=== PATIENT | female | born 1945 | race Caucasian/White ===

== ENCOUNTER 2017-09-24 21:59 | Inpatient (IN) ==
[2017-09-24] MEDS ORDERED: 0.9 % SODIUM CHLORIDE 1,000 ML IV ONE (22:05)
[2017-09-24] MEDS ORDERED: PROMETHAZINE 25 MG/ML VIAL IV ONE (22:15)
[2017-09-24] MEDS ORDERED: ACETAMINOPHEN 325 MG TABLET PO ONE (22:15)
--- NOTE | 2017-09-24 22:34 | Emergency Department Note ---
Fever HPI - General Chief Complaint: Fever Stated Complaint: fever Time Seen by Provider: 09/24/17 22:31 Source: patient Mode of arrival: ambulatory Limitations: no limitations - History of Present Illness HPI Narrative: Patient has been having fever and chills since today according to her son. She has been treated for a UTI by Dr. Gould does not know the name of the antibiotic. Her son she has been eating and drinking well been acting normal last 3-4 days as he has been seeing her every day denies any chest pain there is been no shortness of breath no abdominal pain is been no nausea vomiting no diarrhea no hematemesis no melena denies urgency frequency or dysuria denies any cough no sputum production or throat it appears she was on Macrobid for UTI she is allergic to cephalosporins, penicillin,fluoroquinones, - Related Data Home Medications Medication Instructions Recorded Confirmed Atorvastatin [Lipitor] 20 mg PO HS 06/28/15 08/12/17 HYDROcodone/APAP 10/325MG [[place] 1 tab PO Q4-6HP PRN 06/28/15 08/12/17 10-325Mg] Aspirin [Rishi Chewable Aspirin] 81 mg PO DAILY 07/09/15 08/12/17 carvedilol 12.5 mg tablet 12.5 mg PO BID 07/17/15 08/12/17 fluoxetine 20 mg capsule 20 mg PO QDAY 07/17/15 08/12/17 multivitamin tablet 1 tab-cap PO QDAY 07/17/15 08/12/17 nitroglycerin 0.4 mg sublingual 0.4 mg SUBLINGUAL Q5-15MIN PRN 07/17/15 08/12/17 tablet ondansetron HCl 4 mg tablet 4 mg PO QDAY PRN tab 05/21/17 08/12/17 Previous Rx's Medication Instructions Recorded Losartan Potassium [Cozaar] 12.5 mg PO DAILY #30 tab 07/11/15 ranitidine 150 mg tablet 150 mg PO QHS #30 tab 05/21/17 denosumab 60 mg/mL subcutaneous 60 mg SUB-Q ONCE #1 ml 08/06/17 syringe Allergies Allergy/AdvReac Type Severity Reaction Status Date / Time Amoxicillin [AMOXICILLIN] Allergy Intermediate HIVES Verified 08/12/17 15:46 Cefaclor [From CECLOR] Allergy Intermediate HIVES Verified 08/12/17 15:46 cephalexin [From KEFLEX] Allergy Intermediate HIVES Verified 08/12/17 15:46 Sulfa (Sulfonamide AdvReac Intermediate VOMIT Verified 08/12/17 15:46 Antibiotics) [SULFA (SULFONAMIDE ANTIBIOTICS)] ciprofloxacin [From Cipro] AdvReac Unknown Unknown Verified 08/12/17 15:46 From KEFLEX Allergy Intermediate HIVES Uncoded 08/12/17 15:46 Review of Systems All systems ED: reviewed and negative except as stated. Constitutional: Denies: fever, chills Eyes: Denies: eye pain ENT ED: Denies: ear pain, throat pain Cardiovascular: Denies: chest pain Respiratory: Denies: shortness of breath, cough, wheezes Gastrointestinal: Denies: abdominal pain Genitourinary: Denies: dysuria, urgency, frequency Musculoskeletal: Denies: back pain Integumentary: Denies: rash Neurological: Denies: headache Psychiatric: Denies: anxiety Endocrine: Denies: fatigue Hematological/Lymphatic: Denies: easy bleeding Allergic/Immunologic: Denies: facial swelling Fever PMH - Past Medical History Medical history: Reports: arthritis (Lupus), coronary artery disease, fibromyalgia, hyperlipidemia, hypertension, migraine, osteoporosis, renal disease Family history: Reports: no significant family history - Social History smoking status: Never smoker Alcohol use: Reports: None Drug use: Reports: none Physical Exam Limitations: no limitations Head: atraumatic, normocephalic Eye: Present: normal appearance, PERRL ENT: normal exam, normal oropharynx, mucous membranes moist Neck: Present: full ROM, trachea midline Chest: Present: normal inspection, symmetric chest wall rise. Absent: tenderness Respiratory: Present: normal lung sounds bilaterally. Absent: respiratory distress, wheezes Cardiovascular: Present: regular rate, normal rhythm. Absent: bradycardia Abdominal: Present: soft, normal bowel sounds. Absent: distention, tenderness, guarding, rebound, rigidity Extremities: Present: normal inspection, full ROM. Absent: tenderness Back: Present: normal inspection, full ROM. Absent: tenderness Neurological: Present: alert, oriented X3, CN II-XII intact. Absent: motor sensory deficit Psychiatric: Present: flat affect Course Vital Signs Temperature 102.7 F H 09/24/17 22:00 Pulse Rate 126 H 09/24/17 22:00 Respiratory Rate 27 H 09/24/17 22:00 Blood Pressure 156/73 09/24/17 22:00 Pulse Oximetry (%) 93 09/24/17 22:00 Temperature 102.4 F H 09/24/17 23:46 Pulse Rate 116 H 09/24/17 23:46 Respiratory Rate 23 H 09/24/17 23:46 Blood Pressure 137/68 09/24/17 23:46 Pulse Oximetry (%) 94 09/24/17 23:46 Fever - MDM Narrative Medical decision making narrative: ua dip no wbc, chest xray, possible infilrate left, sepsis criteria, started on Ertapenem [address] Brunner contacted pt to be admitted - Lab Data Result diagrams: 09/24/17 22:23 09/24/17 22:23 Lab Results 09/24/17 09/24/17 09/24/17 Range/Units 22:14 22:23 22:23 WBC 12.5 H (4.5-11.0) K/mcL RBC 4.14 (4.00-5.20) M/mcL Hgb 11.9 L (12.0-15.0) g/dL Hct 37.4 (36.0-48.0) % MCV 90.3 (80.0-100.0) fL MCH 28.6 (26.0-34.0) pg MCHC 31.7 (31.0-36.0) g/dL RDW 12.6 (11.5-14.5) % Plt Count 205 (140-440) K/mcL MPV 7.1 L (7.4-10.4) fL Band Neutrophils % Not Reportable VBG Lactic Acid (0.5-2.2) mmol/L Sodium 136 (133-145) mmol/L Potassium 3.7 (3.3-5.1) mmol/L Chloride 101 (96-108) mmol/L Carbon Dioxide 22 (22-30) mmol/L Anion Gap 13.0 (8-16) BUN 23 (8-23) mg/dl Creatinine 1.0 (0.6-1.1) mg/dl GFR Calculation 56 Glucose 101 (70-105) mg/dL Calcium 8.4 L (8.6-10.4) mg/dl Total Bilirubin 0.4 (0.0-1.0) mg/dL AST 36 (0-37) U/l ALT 45 H (0-40) U/l Alkaline Phosphatase 89 (39-117) U/L Total Protein 7.0 (5.9-8.4) gm/dL Albumin 4.4 (3.2-5.2) gm/dL Globulin 2.6 (2.2-3.7) gm/dL Albumin/Globulin Ratio 1.7 (1.0-2.3) Procalcitonin (<0.10) ng/mL Urine Color Yellow Urine Appearance Clear Urine pH 5.0 (5.0-9.0) Ur Specific [place] 1.019 (1.000-1.035) Urine Protein 30 A (NEG) mg/dL Urine Glucose (UA) Negative (NEG) mg/dL Urine Ketones Neg (NEG) mg/dL Urine Occult Blood Neg (<0.03) mg/dL Urine Nitrate Neg (NEG) Urine Bilirubin Neg (NEG) mg/dL Urine Urobilinogen Neg (NEG) mg/dL Ur Leukocyte Esterase Neg (NEG) /uL Urine RBC 3 H (0-1) /hpf Urine WBC 1 (0-4) /hpf Ur Squamous Epith Cells < 1 (0-4) /hpf Ur Transition Epith Cell < 1 (0-2) /hpf Urine Bacteria 0 (0) /hpf Granular Casts 3 H (0) /lpf Urine Mucus Few (0) /hpf Ur Culture Indicated? No 09/24/17 09/24/17 Range/Units 22:23 23:01 WBC (4.5-11.0) K/mcL RBC (4.00-5.20) M/mcL Hgb (12.0-15.0) g/dL Hct (36.0-48.0) % MCV (80.0-100.0) fL MCH (26.0-34.0) pg MCHC (31.0-36.0) g/dL RDW (11.5-14.5) % Plt Count (140-440) K/mcL MPV (7.4-10.4) fL Band Neutrophils % VBG Lactic Acid 1.3 (0.5-2.2) mmol/L Sodium (133-145) mmol/L Potassium (3.3-5.1) mmol/L Chloride (96-108) mmol/L Carbon Dioxide (22-30) mmol/L Anion Gap (8-16) BUN (8-23) mg/dl Creatinine (0.6-1.1) mg/dl GFR Calculation Glucose (70-105) mg/dL Calcium (8.6-10.4) mg/dl Total Bilirubin (0.0-1.0) mg/dL AST (0-37) U/l ALT (0-40) U/l Alkaline Phosphatase (39-117) U/L Total Protein (5.9-8.4) gm/dL Albumin (3.2-5.2) gm/dL Globulin (2.2-3.7) gm/dL Albumin/Globulin Ratio (1.0-2.3) Procalcitonin 0.35 (<0.10) ng/mL Urine Color Urine Appearance Urine pH (5.0-9.0) Ur Specific [place] (1.000-1.035) Urine Protein (NEG) mg/dL Urine Glucose (UA) (NEG) mg/dL Urine Ketones (NEG) mg/dL Urine Occult Blood (<0.03) mg/dL Urine Nitrate (NEG) Urine Bilirubin (NEG) mg/dL Urine Urobilinogen (NEG) mg/dL Ur Leukocyte Esterase (NEG) /uL Urine RBC (0-1) /hpf Urine WBC (0-4) /hpf Ur Squamous Epith Cells (0-4) /hpf Ur Transition Epith Cell (0-2) /hpf Urine Bacteria (0) /hpf Granular Casts (0) /lpf Urine Mucus (0) /hpf Ur Culture Indicated? Disposition Pt seen by [facility]/PA only: No Clinical Impression: Sepsis Qualifiers: Sepsis type: sepsis due to unspecified organism Qualified Code(s): A41.9 - Sepsis, unspecified organism Disposition: Xfer As Inpt ([facility]) Referrals: Joanne Gould MD [Primary Care Provider] -
[2017-09-24] MEDS ORDERED: ERTAPENEM 1 GM in 0.9 % SODIUM CHLORIDE 50 ML IV ONE (22:54)
[2017-09-24] MEDS ORDERED: 0.9 % SODIUM CHLORIDE 100 ML IV ONE (23:08)
[2017-09-24] MEDS ORDERED: HYDROcodone/APAP 10/325MG TABLET PO ONE (23:15)
[2017-09-24 23:46] LABS: Mean Cell Volume 90.3 fL (80.0-100.0); Mean Corpuscular HGB Conc 31.7 g/dL (31.0-36.0); Mean Corpuscular Hemoglobin 28.6 pg (26.0-34.0); Platelet Count 205 K/mcL (140-440); RBC 4.14 M/mcL (4.00-5.20); Red Cell Distribution Width 12.6 % (11.5-14.5)
[2017-09-24 23:53] LABS: Appearance,Urine CLEAR; Bacteria,Urine 0 /hpf (0); Bilirubin,Urine NEG (NEG); Color,Urine YELLOW; Glucose,Urine (UA) NEGATIVE (NEG); Leukocyte Esterase,Urine NEG /uL (NEG); Mucus,Urine FEW /hpf (0); Protein,Urine 30 mg/dL (NEG); Specific Gravity,Urine 1.019 (1.000-1.035); Urine Blood NEG mg/dL (<0.03); Urine Granular Cast 3 /lpf (0); Urine RBC 3 /hpf (0-1); Urine Squamous Epithelial Cell < 1 /hpf (0-4); Urine Transitional Epi Cells < 1 /hpf (0-2); Urine WBC 1 /hpf (0-4); Urobilinogen,Urine NEG (NEG)
[2017-09-24 23:58] LABS: ALT/SGPT 45 U/l (0-40); Albumin 4.4 gm/dL (3.2-5.2); Albumin/Globulin Ratio 1.7 (1.0-2.3); Alkaline Phosphatase 89 U/L (39-117); Blood Urea Nitrogen 23 mg/dl (8-23)
[2017-09-25 00:21] LABS: Band Neutrophils % 10 % (0-10); Eosinophils % (Manual) 5 % (0-7); Lymphocytes % 14 % (15-49); Monocytes % (Manual) 2 % (1-12); Platelet Estimate NORMAL (NORMAL); RBC Morphology NORMAL (NORMAL); Segmented Neutrophils % 69 % (38-78)
[2017-09-25] MEDS ORDERED: ACETAMINOPHEN 325 MG TABLET PO PRN ×2 (00:57→07:28)
[2017-09-25] MEDS ORDERED: ONDANSETRON 4 MG/2 ML VIAL IV PRN (00:57)
[2017-09-25] MEDS ORDERED: 0.9 % SODIUM CHLORIDE 1,000 ML IV SCH (01:00)
[2017-09-25] MEDS ORDERED: ERTAPENEM 1 GM in 0.9 % SODIUM CHLORIDE 50 ML IV SCH (01:00)
--- NOTE | 2017-09-25 04:01 | XRay Report ---
CLINICAL INFORMATION: Hypoxia COMPARISON: 07/08/2015 FINDINGS: The heart is borderline enlarged. Mediastinum is unremarkable. Pulmonary vessels are mildly distended compared to the baseline study two years ago. There is minimal interstitial edema in the lateral regions. Minor bibasilar scarring again noted. Tiny right pleural effusion noted. IMPRESSION: Mild CHF or volume overload Interpreted and Authenticated by: Bucky Olivera 09/25/17
[2017-09-25 06:34] LABS: Basophils # (Auto) 0 K/mcL (0.0-0.3); Basophils % (Auto) 0.1 % (0.0-2.0); Eosinophils # (Auto) 0.2 K/mcL (0.0-0.7); Eosinophils % (Auto) 1.6 % (0.0-7.0); Granulocytes % (Auto) 80.2 % (38.0-78.0); Lymphocytes # (Auto) 1.8 K/mcL (1.5-4.8); Lymphocytes % (Auto) 15.9 % (15.5-49.0); Mean Cell Volume 91.7 fL (80.0-100.0); Mean Corpuscular HGB Conc 32.3 g/dL (31.0-36.0); Mean Corpuscular Hemoglobin 29.6 pg (26.0-34.0); Monocytes # (Auto) 0.2 K/mcL (0.1-0.9); Monocytes % (Auto) 2.2 % (1.0-12.0); Platelet Count 163 K/mcL (140-440); RBC 3.71 M/mcL (4.00-5.20); Red Cell Distribution Width 13.5 % (11.5-14.5)
--- NOTE | 2017-09-25 06:46 | Internal Med History&Physical ---
Medical - H&P: [facility] Patient information: Note initiated : 09/25/17 at 6:43 am Service Date, if different from initiated Date: [] Patient: Candy Martinez a 72 y/o F admitted on 09/25/17 for fever. Chief Complaint: [] Chief complaint: fever,chills and weakness History of present illness: Ms. Martinez is a 72 year old F was fairly independent at baseline, comes in to the ER with onset offever, shaking chills and weakness that has evolved over 48 hours. Patient recently had a UTI and was treated with Macrobid and has been doing better until 48 hours prior to presentation. Patient has associated lightheadedness and dizziness. she however denies chest pain shortness of breath. She said the symptoms became quite rapidly. She denies weight loss diarrhea dysuria, joint swelling, rash. Initial workup in the ER was significant for chest infiltrates along with fever of 102, white count 12.5 with 10% bands. Patient received antibiotics after cultures were drawn. patient carries history of multiple allergies including cephalosporins and chloroquine and hence started on Invanz. Hospitalist service was consulted on admission in light of above. at the time of evaluation no family members are present. Most of the history is obtained from review of medical records and from patient. She endorses to sick contact including a daughter who has symptoms of sore throat. She on her baseline is quite independent and manages alone. Her son Olman lives nearby and she plans to move with heart son. she is unclear about her vaccination status. she denies Weight loss/glandular swelling/diarrhea dysuria bloody stool and headache photophobia, myalgias or joint swelling or pain Review systems A 10 point review systems was performed and is negative Except for what is discussed above Medical - H&P: PMH Medical history: RICKI (acute kidney injury) (Acute) Cystitis (Acute) Gastritis (Acute) Hypokalemia (Acute) Hypokalemia (Acute) Hypotension (Acute) Renal disease (Acute) Septic shock (Acute) Yeast infection of the vagina (Acute) Abnormal stress echocardiogram (Chronic) Anemia (Chronic) Arthritis (Chronic) Generalized Autonomic neuropathy (Chronic) Bilateral plantar fasciitis (Chronic) Chronic renal disease, stage II (Chronic) Degenerative disc disease, lumbar (Chronic) With myelopathy Depression (Chronic) Disturbance, sleep (Chronic) NOS Eczema (Chronic) Edema (Chronic) Esophageal reflux (Chronic) Essential hypertension (Chronic) Benign Fatigue (Chronic) Fibromyalgia (Chronic) Iatrogenic Salem's syndrome (Chronic) Irritable bowel (Chronic) Leg pain (Chronic) Long-term current use of steroids (Chronic) Low back pain (Chronic) Lumbar disc disease (Chronic) Lupus arthritis (Chronic) Malaise and fatigue (Chronic) Migraine (Chronic) Mixed hyperlipidemia (Chronic) Myocardial infarction (Chronic) Neck pain (Chronic) Neuritis (Chronic) Osteoarthritis (Chronic) Other chest pain (Chronic) Pelvic pain (Chronic) Chronic Plantar fasciitis of left foot (Chronic) Renal insufficiency (Chronic) Sciatica (Chronic) Spondylosis, lumbosacral (Chronic) Thoracic outlet syndrome (Chronic) Trochanteric bursitis (Chronic) Left UTI (urinary tract infection) (Chronic) SLE (systemic lupus erythematosus) (R Surgical history: x of appendectomy (Chronic) Incidental with hysterectomy Hx of cholecystectomy (Chronic) Hx of hernia repair (Chronic) Hx of percutaneous transluminal coronary angioplasty (Chronic) Hx of shoulder surgery (Chronic) Left shoulder repair Hx of tubal ligation (Chronic) S/P partial hysterectomy (Chronic) Pertinent family history: Mother , Bed ridden Pulmonary edema Fracture of hip Carcinoma of breast Hypertension Cerebrovascular accident (CVA) Deep vein thrombosis (DVT) Father , Age 68 Myocardial Infarction Cerebrovascular accident (CVA) Sisters Myocardial Infarction Alzheimer's disease Crohn's disease Brothers Cerebrovascular accident (CVA) Son Ulcerative colitis Social history: housing: house marital status: education level: middle school occupational status: retired physical activity: walking frequency: 5-6 times per week smoking status: Never smoker alcohol intake frequency: does not drink substance use type: does not use Medical - H&P: Meds Home Medications Medication Instructions Recorded Confirmed Type Atorvastatin [Lipitor] 20 mg PO HS 06/28/15 09/25/17 History HYDROcodone/APAP 10/325MG [[place] 1 tab PO Q4-6HP PRN 06/28/15 09/25/17 History 10-325Mg] Aspirin [Rishi Chewable Aspirin] 81 mg PO DAILY 07/09/15 09/25/17 History Losartan Potassium [Cozaar] 12.5 mg PO DAILY #30 tab 07/11/15 09/25/17 Rx carvedilol 12.5 mg tablet 12.5 mg PO BID 07/17/15 09/25/17 History fluoxetine 20 mg capsule 20 mg PO QDAY 07/17/15 09/25/17 History multivitamin tablet 1 tab-cap PO QDAY 07/17/15 09/25/17 History nitroglycerin 0.4 mg sublingual 0.4 mg SUBLINGUAL Q5-15MIN PRN 07/17/15 History tablet ondansetron HCl 4 mg tablet 4 mg PO QDAY PRN tab 05/21/17 09/25/17 History ranitidine 150 mg tablet 150 mg PO QHS #30 tab 05/21/17 09/25/17 Rx denosumab 60 mg/mL subcutaneous 60 mg SUB-Q ONCE #1 ml 08/06/17 09/25/17 Rx syringe Allergies Allergy/AdvReac Type Severity Reaction Status Date / Time Amoxicillin [AMOXICILLIN] Allergy Intermediate HIVES Verified 08/12/17 15:46 Cefaclor [From CECLOR] Allergy Intermediate HIVES Verified 08/12/17 15:46 cephalexin [From KEFLEX] Allergy Intermediate HIVES Verified 08/12/17 15:46 Sulfa (Sulfonamide AdvReac Mild VOMIT Verified 09/25/17 07:31 Antibiotics) [SULFA (SULFONAMIDE ANTIBIOTICS)] ciprofloxacin [From Cipro] AdvReac Unknown Unknown Verified 08/12/17 15:46 Medical - H&P: Exam - Constitutional Vitals: Temp Pulse Resp BP Pulse Ox 98.1 F 116 H 18 101/52 92 09/25/17 03:52 09/25/17 00:31 09/25/17 03:52 09/25/17 03:52 09/25/17 03:52 General appearance: no acute distress Exam: alert oriented hard of hearing Pupils symmetric oral cavity dry No urine was discharge Head normocephalic Neck no lymphadenopathy S1 and S2 tachycardia ESM grade 1 Diminished breath sounds bases with a history crackles Skin no suspicious lesion Abdomen soft lower extremity no cyanosis clubbing Joint swelling psych alert cooperative neuro nonfocal Medical - H&P: Reslt - Labs CBC & Chem 7: 09/25/17 04:18 09/25/17 04:18 Labs: Short CBC 09/24/17 09/25/17 Range/Units 22:23 04:18 WBC 12.5 H 11.4 H (4.5-11.0) K/mcL Hgb 11.9 L 11.0 L (12.0-15.0) g/dL Hct 37.4 34.0 L (36.0-48.0) % Plt Count 205 163 (140-440) K/mcL BMP 09/24/17 22:23 Sodium 136 Potassium 3.7 Chloride 101 Carbon Dioxide 22 BUN 23 Creatinine 1.0 Glucose 101 Calcium 8.4 L Liver Function 09/24/17 Range/Units 22:23 Total Bilirubin 0.4 (0.0-1.0) mg/dL AST 36 (0-37) U/l ALT 45 H (0-40) U/l Alkaline Phosphatase 89 (39-117) U/L Albumin 4.4 (3.2-5.2) gm/dL Urine 09/24/17 Range/Units 22:14 Urine Color Yellow Urine Appearance Clear Urine pH 5.0 (5.0-9.0) Ur Specific [place] 1.019 (1.000-1.035) Urine Protein 30 A (NEG) mg/dL Urine Glucose (UA) Negative (NEG) mg/dL Medical - H&P: A/P (1) Pneumonia Current visit: Yes Status: Acute * Community acquired pneumonia-Curb 65 score 3. antibiotic coverage for community acquired pathogen. on Invanz due to multiple allergies * Sepsis secondary to above- leukocytosis bandemia tachycardia and fever. continue management per guidelines * history of CAD on aspirin and statin and Coreg. ARB(on hold) * GERD on ranitidine * anxiety disorder on fluoxetine * Full code * Prophylaxis heparin plan * Sepsis management per guidelines * Broad antibiotic coverage * Pre-existing medical condition management and home meds * Aggressive PT OT Medical - H&P: Qual - VTE Deep Vein Thrombosis/Pulmonary Embolism Present on Admission: No
[2017-09-25 07:26] LABS: ALT/SGPT 56 U/l (0-40); Albumin 3.7 gm/dL (3.2-5.2); Albumin/Globulin Ratio 1.5 (1.0-2.3); Alkaline Phosphatase 79 U/L (39-117); Bilirubin,Direct < 0.2 mg/dL (0.0-0.3); Blood Urea Nitrogen 19 mg/dl (8-23); Gamma Glutamyl Transpeptidase 21 U/L (5-36); Uric Acid 4.7 mg/dL (2.5-8.0)
[2017-09-25] MEDS ORDERED: ACETAMINOPHEN 900 MG/90 ML BOTTLE IV PRN (07:28)
[2017-09-25] MEDS ORDERED: POTASSIUM CHLORIDE 20 MEQ PACKET PO PRN (07:28)
[2017-09-25] MEDS ORDERED: MAGNESIUM SULFATE 2 GM/50 ML BAG IV PRN (07:28)
[2017-09-25] MEDS ORDERED: LEVOFLOXACIN 500 MG/100 ML BAG IV SCH (08:00)
[2017-09-25] MEDS: 0.9 % SODIUM CHLORIDE 1,000 ML IV SCH ×2 (08:02→17:37)
[2017-09-25] MEDS: ONDANSETRON 4 MG/2 ML VIAL IV PRN ×2 (09:00→16:27)
[2017-09-25] MEDS: FLUoxetine HCL 20 MG CAPSULE PO SCH (09:14)
[2017-09-25] MEDS: CARVEDILOL 12.5 MG TABLET PO SCH ×2 (09:14→22:35)
[2017-09-25] MEDS: ASPIRIN 81 MG TAB.CHEW PO SCH (09:14)
[2017-09-25] MEDS: HEPARIN 5,000 UNIT/ML VIAL SQ SCH ×2 (09:14→22:35)
[2017-09-25] MEDS: DOCUSATE SODIUM 100 MG CAPSULE PO SCH ×2 (09:15→22:35)
[2017-09-25] MEDS: HYDROcodone/APAP 10/325MG TABLET PO PRN ×2 (09:15→22:35)
[2017-09-25] MEDS ORDERED: AZITHROMYCIN 500 MG in DEXTROSE 5% IN WATER 250 ML IV ONE (12:47)
[2017-09-25] MEDS: 0.9 % SODIUM CHLORIDE 10 ML SYRINGE IV SCH ×2 (12:49→22:36)
[2017-09-25] MEDS: ERTAPENEM 1 GM in 0.9 % SODIUM CHLORIDE 50 ML IV SCH (15:35)
[2017-09-25] MEDS ORDERED: NON FORMULARY MEDICATION 1 DOSE MISCELL (Ranitidine Hcl [Zantac] 150 MG) PO SCH (21:00)
[2017-09-25] MEDS: ATORVASTATIN 20 MG TABLET PO SCH (22:35)
[2017-09-25] MEDS: SENNOSIDES/DOCUSATE SODIUM 1 TAB TABLET PO SCH (22:35)
[2017-09-25] MEDS: FAMOTIDINE 20 MG TABLET PO SCH (22:35)
[2017-09-26] MEDS ORDERED: BENZOCAINE/MENTHOL 1 LOZENGE PO PRN (00:23)
[2017-09-26] MEDS ORDERED: BENZOCAINE/MENTHOL 1 LOZENGE PO ONE (00:27)
[2017-09-26 05:13] LABS: Mean Cell Volume 91.6 fL (80.0-100.0); Mean Corpuscular HGB Conc 33.3 g/dL (31.0-36.0); Mean Corpuscular Hemoglobin 30.5 pg (26.0-34.0); Platelet Count 154 K/mcL (140-440); RBC 3.58 M/mcL (4.00-5.20); Red Cell Distribution Width 13.6 % (11.5-14.5)
[2017-09-26] MEDS: 0.9 % SODIUM CHLORIDE 10 ML SYRINGE IV SCH ×3 (05:18→20:33)
[2017-09-26 05:46] LABS: ALT/SGPT 51 U/l (0-40); Albumin 3.1 gm/dL (3.2-5.2); Albumin/Globulin Ratio 1.2 (1.0-2.3); Alkaline Phosphatase 76 U/L (39-117); Bilirubin,Direct < 0.2 mg/dL (0.0-0.3); Blood Urea Nitrogen 10 mg/dl (8-23); Gamma Glutamyl Transpeptidase 20 U/L (5-36)
[2017-09-26 06:40] LABS: Band Neutrophils % 3 % (0-10); Eosinophils % (Manual) 7 % (0-7); Lymphocytes % 18 % (15-49); Monocytes % (Manual) 6 % (1-12); Platelet Estimate NORMAL (NORMAL); RBC Morphology NORMAL (NORMAL); Segmented Neutrophils % 66 % (38-78)
[2017-09-26] MEDS: HEPARIN 5,000 UNIT/ML VIAL SQ SCH ×2 (08:47→20:31)
[2017-09-26] MEDS: ASPIRIN 81 MG TAB.CHEW PO SCH (08:47)
[2017-09-26] MEDS: DOCUSATE SODIUM 100 MG CAPSULE PO SCH ×3 (08:47→20:32)
[2017-09-26] MEDS: ERTAPENEM 1 GM in 0.9 % SODIUM CHLORIDE 50 ML IV SCH (08:47)
[2017-09-26] MEDS: CARVEDILOL 12.5 MG TABLET PO SCH ×2 (08:48→20:32)
[2017-09-26] MEDS: 0.9 % SODIUM CHLORIDE 1,000 ML IV SCH ×2 (08:48→22:09)
[2017-09-26] MEDS: HYDROcodone/APAP 10/325MG TABLET PO PRN ×2 (08:48→20:34)
[2017-09-26] MEDS: FLUoxetine HCL 20 MG CAPSULE PO SCH (08:48)
[2017-09-26] MEDS ORDERED: AZITHROMYCIN 250 MG in DEXTROSE 5% IN WATER 250 ML IV SCH (10:00)
[2017-09-26] MEDS ORDERED: IOPAMIDOL 100 ML BOTTLE IV ONE (10:37)
--- NOTE | 2017-09-26 11:01 | Cat Scan Report ---
CLINICAL INFORMATION: Shortness of breath - recent hip surgery COMPARISON: None. TECHNIQUE: 80 cc of Isovue-300 were injected intravenously. Using SmartPrep to maximize pulmonary artery opacification, 2.5 mm helical slices were obtained from the lung apices through the lung bases. Following reconstruction, 2.5 mm sagittal, coronal, and axial reformations were processed. The exam was reviewed at mediastinal, lung, and bone windows. The exam was performed using radiation dose optimization techniques including, but not limited to, automated exposure control, adjustment of the mA and/or kV according to patient size and use of iterative reconstruction technique. FINDINGS: The pulmonary arteries are well opacified and normal in contour and caliber with no evidence of emboli. Thoracic aorta is also normal in contour and caliber with diffuse intimal thickening. There are no abnormally enlarged lymph nodes within the hilum, mediastinum or axillary regions. Esophagus is normal. The heart is mildly enlarged and there is heavy fibrofatty calcific plaque seen in all proximal coronary arteries. Minor calcification of the aortic annulus. Pulmonary parenchymal windows show nonspecific interstitial disease in the periphery of both upper, right middle and lower lobe. In these regions, there is thickening of the interlobular and intralobular septa. The does not contain a diffuse or regional pattern for recognizable airspace disease. Presumably presumably, it is nonspecific interstitial fibrosis and/or edema from prior episode of CHF. There is a tiny right pleural effusion. Bones and soft tissues of the chest wall are normal. IMPRESSION: 1. Pulmonary arteries are unremarkable no evidence of pulmonary embolus 2. Mild interstitial disease confined to the periphery of both lungs. This is nonspecific and could represent fibrosis or residual edema from prior episode of CHF. There is no evidence of vascular congestion to suggest acute CHF. Interpreted and Authenticated by: Bucky Olivera 09/26/17
[2017-09-26] MEDS ORDERED: NITROGLYCERIN 0.4 MG TAB.SUBL SL PRN (11:31)
--- NOTE | 2017-09-26 11:36 | Internal Med Progress Note ---
Medical - PN: Subj Patient information: Note initiated : 09/26/17 at 11:32 am Service Date, if different from initiated Date: [] Patient: Candy Martinez 72 y/o F admitted on 09/25/17 for fever. Chief Complaint: [] Interval history: Ms. Martinez is a 72 year old F was fairly independent at baseline, comes in to the ER with onset offever, shaking chills and weakness that has evolved over 48 hours. Patient recently had a UTI and was treated with Macrobid and has been doing better until 48 hours prior to presentation. Patient has associated lightheadedness and dizziness. she however denies chest pain shortness of breath. She said the symptoms became quite rapidly. She denies weight loss diarrhea dysuria, joint swelling, rash. Initial workup in the ER was significant for chest infiltrates along with fever of 102, white count 12.5 with 10% bands. Patient received antibiotics after cultures were drawn. patient carries history of multiple allergies including cephalosporins and chloroquine and hence started on Invanz. Hospitalist service was consulted on admission in light of above. at the time of evaluation no family members are present. Most of the history is obtained from review of medical records and from patient. She endorses to sick contact including a daughter who has symptoms of sore throat. She on her baseline is quite independent and manages alone. Her son Olman lives nearby and she plans to move with heart son. she is unclear about her vaccination status. she denies Weight loss/glandular swelling/diarrhea dysuria bloody stool and headache photophobia, myalgias or joint swelling or pain 09/26 Patient seen and examined, no acute overnight events. Patient remains tachycardic. Patient's CT scan of the chest was done to evaluate for pulmonary embolism this was negative, the CT did show bilateral interstitial disease, resolving CHF?. The patient has positive mycoplasma antibody. She has cough, it likely that these findings on the chest CT represent atypical pneumonia. She is on IV azithromycin for same. I will discontinue ertapenem. There is no evidence of any other infection at this point in time. Microbiology so far is negative. Patient notes that besides cough there is no other acute concern or complaint. Labs reviewed, TSH normal Pertinent ROS: Denies headache, dizziness Denies chest pain, palpitations Cough present, shortness of breath improving Denies abdominal pain, nausea or vomiting. - Constitutional Vitals: Vital Signs Temp Pulse Resp BP Pulse Ox 98.2 F 61 16 121/58 94 09/26/17 07:50 09/25/17 22:03 09/26/17 07:50 09/26/17 07:50 09/26/17 07:50 Period Temp Pulse Resp BP Sys/Conroy Pulse Ox Last 24 Hr 98.0 F-99.2 F 61-107 16-18 94-121/41-58 91-95 Intake and Output 09/25/17 09/26/17 09/26/17 21:59 05:59 13:59 Intake Total 683 / 683 100 / 100 50 / 50 Output Total 950 / 950 1750 / 1750 Balance -267 / -267 -1650 / -1650 50 / 50 Weight 133 lb Intake & Output: Intake & Output 09/25/17 09/26/17 09/26/17 21:59 05:59 13:59 Intake Total 683 / 683 100 / 100 50 / 50 Output Total 950 / 950 1750 / 1750 Balance -267 / -267 -1650 / -1650 50 / 50 Weight 133 lb Intake: IV 503 / 503 50 / 50 INVanz 1 GM In Sodium Chloride 50 / 50 50 / 50 0.9% 50 ml @ 100 mls/hr IV Q24H [facility] Rx#:[id number] Oral 180 / 180 100 / 100 Output: Urine Catheter Amount 950 / 950 1750 / 1750 Other: Meal Dinner Percent of Meal Consumed 25% Exam: Constitutional; Afebrile, cooperative, alert, not in distress. Eyes- No icterus, , No periorbital swelling Ears- Ext ear normal, hearing normal to conversation. Neck- Midline trachea, supple Respiratory system: Air Entry equal on both sides, mild bilateral basilar crackles. No wheezing, no rhonchi. CVS- Rate tachycardic rhythm regular, S1,S2 heard, no gallop, no rub. Abdomen- Soft nontender abdomen, no organomegaly, no tenderness, no guarding or rigidity, [employer]- AOOx3, moving all extremities, no gross focal deficit noted. Medical - PN: Obj Da - Labs CBC & Chem 7: 09/26/17 04:12 09/26/17 04:12 Labs: Abnormal Lab Results 09/26/17 09/26/17 09/25/17 04:12 04:12 08:10 WBC RBC 3.58 L Hgb 10.9 L Hct 32.8 L MPV 7.0 L Gran % Gran # Lymphocytes % Carbon Dioxide Calcium 7.1 L Phosphorus 1.8 L AST 41 H ALT 51 H C-Reactive Protein Total Protein 5.7 L Albumin 3.1 L Urine Protein Urine RBC Granular Casts Mycoplasma pneumon IgM Positive A 09/25/17 09/25/17 09/25/17 04:18 04:18 04:18 WBC 11.4 H RBC 3.71 L Hgb 11.0 L Hct 34.0 L MPV 7.2 L Gran % 80.2 H Gran # 9.2 H Lymphocytes % Carbon Dioxide 21 L Calcium 7.6 L Phosphorus AST 53 H ALT 56 H C-Reactive Protein 6.0 H Total Protein Albumin Urine Protein Urine RBC Granular Casts Mycoplasma pneumon IgM 09/24/17 09/24/17 09/24/17 22:23 22:23 22:14 WBC 12.5 H RBC Hgb 11.9 L Hct MPV 7.1 L Gran % Gran # Lymphocytes % 14 L Carbon Dioxide Calcium 8.4 L Phosphorus AST ALT 45 H C-Reactive Protein Total Protein Albumin Urine Protein 30 A Urine RBC 3 H Granular Casts 3 H Mycoplasma pneumon IgM Meds: Medications Acetaminophen (Tylenol) 650 mg PO Q4-6HP PRN PRN Reason: PAIN/FEVER > 101 Last Admin: 09/25/17 15:40 Dose: 650 mg Hydrocodone Bitart/Acetaminophen ([place] 10/325mg) 1 tab PO Q4-6HP PRN PRN Reason: Pain Last Admin: 09/26/17 08:48 Dose: 1 tab Aspirin (Aspirin) 81 mg PO DAILY [facility] Last Admin: 09/26/17 08:47 Dose: 81 mg Atorvastatin Calcium (Lipitor) 20 mg PO [facility] Last Admin: 09/25/17 22:35 Dose: 20 mg Carvedilol (Coreg) 12.5 mg PO BID [facility] Last Admin: 09/26/17 08:48 Dose: 12.5 mg Docusate Sodium (Colace) 100 mg PO BID [facility] Last Admin: 09/26/17 10:21 Dose: Not Given Famotidine (Pepcid) 20 mg PO HS [facility] Last Admin: 09/25/17 22:35 Dose: 20 mg Fluoxetine HCl (Prozac) 20 mg PO QDAY [facility] Last Admin: 09/26/17 08:48 Dose: 20 mg Heparin Sodium (Porcine) (Heparin) 5,000 unit SQ Q12 [facility] Last Admin: 09/26/17 08:47 Dose: 5,000 unit Magnesium Sulfate (Magnesium Sulfate) 2 gm in 50 mls @ 50 mls/hr IV UD PRN PRN Reason: MG = or < 1.7 Sodium Chloride (Sodium Chloride 0.9%) 1,000 mls @ 50 mls/hr IV .Q20H [facility] Stop: 09/27/17 19:27 Last Admin: 09/26/17 08:48 Dose: Not Given Acetaminophen (Ofirmev) 900 mg in 90 mls @ 180 mls/hr IV Q6HP PRN PRN Reason: PAIN/FEVER > 101 Ertapenem 1 gm/ Sodium (Chloride) 50 mls @ 100 mls/hr IV Q24H [facility] Last Infusion: 09/26/17 09:28 Dose: Infused Azithromycin 250 mg/ Dextrose 250 mls @ 250 mls/hr IV Q24H [facility] Stop: 09/29/17 10:59 Last Admin: 09/26/17 09:28 Dose: 250 mls/hr Losartan Potassium (Cozaar) 12.5 mg PO DAILY [facility] Nitroglycerin (Nitrostat) 0.4 mg SL Q5-15MIN PRN PRN Reason: Chest Pain Non-Formulary Medication (Multivitamin [Multi-Day Vitamins]) 1 tab-cap PO QDAY [facility] Ondansetron HCl (Zofran) 4 mg IV Q4-6HP PRN PRN Reason: Nausea And Vomiting Last Admin: 09/25/17 16:27 Dose: 4 mg Potassium Chloride (Klor-Con) 40 meq PO DAILYP PRN PRN Reason: K+ < 3.5 Senna/Docusate Sodium (Senna Plus Tablet) 1 tab PO HS [facility] Last Admin: 09/25/17 22:35 Dose: 1 tab Sodium Chloride (Saline Flush) 10 ml IV Q8 [facility] Last Admin: 09/26/17 05:18 Dose: Not Given Throat Lozenges (Cepacol) 1 lozenge PO PRN PRN PRN Reason: Sore Throat Medical - PN: A/P - Time Spent With Patient Total time spent is greater than 50% in coordination of care (as documented) at patient's floor/unit and/or counseling patient: - Narrative A/P Narrative: A/P CAP: Mycoplasma PNA, d/c ertapenum, continue azithromcyin, monitor CHF: noted on CHF on admit, echo done, results pending. GERD on ranitidine continue CAD: No cp, on bb, asa, statin, resume ARB Anxiety: on floxoetine. Tachycardia: Tsh neg, CTA neg, likely anxiety related/ infection, monitor, DVT hep sq FUll code Low sodium diet. Medical - PN: Qual - VTE Deep Vein Thrombosis/Pulmonary Embolism Present on Admission: No
[2017-09-26] MEDS: ATORVASTATIN 20 MG TABLET PO SCH (20:32)
[2017-09-26] MEDS: FAMOTIDINE 20 MG TABLET PO SCH (20:33)
[2017-09-26] MEDS: SENNOSIDES/DOCUSATE SODIUM 1 TAB TABLET PO SCH (20:33)
[2017-09-27] MEDS: 0.9 % SODIUM CHLORIDE 10 ML SYRINGE IV SCH (05:18)
[2017-09-27 06:59] LABS: ALT/SGPT 38 U/l (0-40); Albumin 3.2 gm/dL (3.2-5.2); Albumin/Globulin Ratio 1.3 (1.0-2.3); Alkaline Phosphatase 79 U/L (39-117); Bilirubin,Direct < 0.2 mg/dL (0.0-0.3); Blood Urea Nitrogen 10 mg/dl (8-23); Gamma Glutamyl Transpeptidase 19 U/L (5-36); Uric Acid 4.1 mg/dL (2.5-8.0)
[2017-09-27 07:03] LABS: Mean Corpuscular HGB Conc 32.6 g/dL (31.0-36.0); Platelet Count 158 K/mcL (140-440); RBC 3.51 M/mcL (4.00-5.20); Red Cell Distribution Width 13.8 % (11.5-14.5)
[2017-09-27] MEDS ORDERED: CARVEDILOL 12.5 MG TABLET PO SCH (08:00)
[2017-09-27 08:04] LABS: Band Neutrophils % 1 % (0-10); Eosinophils % (Manual) 2 % (0-7); Lymphocytes % 41 % (15-49); Monocytes % (Manual) 6 % (1-12); Platelet Estimate NORMAL (NORMAL); RBC Morphology NORMAL (NORMAL); Segmented Neutrophils % 50 % (38-78)
[2017-09-27] MEDS ORDERED: FLUoxetine HCL 20 MG CAPSULE PO SCH (09:00)
[2017-09-27] MEDS ORDERED: NEUTRA PHOS 1 PACKET PO SCH ×2 (09:00)
[2017-09-27] MEDS ORDERED: MULTIVIT,THER IRON,CA,FA & MIN 1 TABLET PO SCH (09:00)
[2017-09-27] MEDS ORDERED: DOCUSATE SODIUM 100 MG CAPSULE PO SCH (09:00)
[2017-09-27] MEDS ORDERED: LOSARTAN 25 MG TABLET PO SCH (09:00)
[2017-09-27] MEDS ORDERED: HEPARIN 5,000 UNIT/ML VIAL SQ SCH (09:00)
[2017-09-27] MEDS ORDERED: ASPIRIN 81 MG TAB.CHEW PO SCH (09:00)
[2017-09-27] MEDS ORDERED: 0.9 % SODIUM CHLORIDE 1,000 ML IV SCH (09:04)
[2017-09-27] MEDS ORDERED: POTASSIUM CHLORIDE 20 MEQ PACKET PO PRN (09:04)
[2017-09-27] MEDS ORDERED: ONDANSETRON 4 MG/2 ML VIAL IV PRN (09:04)
[2017-09-27] MEDS ORDERED: ACETAMINOPHEN 900 MG/90 ML BOTTLE IV PRN (09:04)
[2017-09-27] MEDS ORDERED: NITROGLYCERIN 0.4 MG TAB.SUBL SL PRN (09:04)
[2017-09-27] MEDS ORDERED: MAGNESIUM SULFATE 2 GM/50 ML BAG IV PRN (09:04)
[2017-09-27] MEDS ORDERED: BENZOCAINE/MENTHOL 1 LOZENGE PO PRN (09:04)
[2017-09-27] MEDS ORDERED: HYDROcodone/APAP 10/325MG TABLET PO PRN (09:04)
[2017-09-27] MEDS ORDERED: ACETAMINOPHEN 325 MG TABLET PO PRN (09:04)
[2017-09-27] MEDS: CARVEDILOL 12.5 MG TABLET PO SCH (09:32)
[2017-09-27] MEDS: HEPARIN 5,000 UNIT/ML VIAL SQ SCH (09:32)
[2017-09-27] MEDS: DOCUSATE SODIUM 100 MG CAPSULE PO SCH (09:32)
[2017-09-27] MEDS: ASPIRIN 81 MG TAB.CHEW PO SCH (09:32)
[2017-09-27] MEDS: FLUoxetine HCL 20 MG CAPSULE PO SCH (09:33)
[2017-09-27] MEDS ORDERED: AZITHROMYCIN 250 MG in DEXTROSE 5% IN WATER 250 ML IV SCH (10:00)
--- NOTE | 2017-09-27 13:45 | Discharge Summary ---
Medical - DS: Prov Patient information: Note initiated : 09/27/17 at 1:40 pm Service Date, if different from initiated Date: [] Patient: Candy Martinez 72 y/o F admitted on 09/25/17 for fever. Chief Complaint: [] Date of admission: 09/25/17 00:55 Discharge date: 09/27/17 Primary care physician: Joanne Gould Attending physician on admission: Ramses Sims Discharging clinician: Ed Aguilar Medical - DS: Meds - Discharge Medications Prescriptions: Azithromycin [Zithromax] 250 mg PO DAILY #3 tab Active and Home Medications: Home Medications Atorvastatin [Lipitor] 20 mg PO HS 06/28/15 [History Confirmed 09/25/17 Last Taken 07/07/15] HYDROcodone/APAP 10/325MG [[place] 10-325Mg] 1 tab PO Q4-6HP PRN 06/28/15 [ History Confirmed 09/25/17 Last Taken 07/07/15] Aspirin [Rishi Chewable Aspirin] 81 mg PO DAILY 07/09/15 [History Confirmed 04/04 Last Taken 07/08/15 09:00 81 mg] Losartan Potassium [Cozaar] 12.5 mg PO DAILY #30 tab 07/11/15 [Rx Confirmed 04/04 Last Taken Unknown] carvedilol 12.5 mg tablet 12.5 mg PO BID 07/17/15 [History Confirmed 09/25/17 Last Taken Unknown] fluoxetine 20 mg capsule 20 mg PO QDAY 07/17/15 [History Confirmed 09/25/17 Last Taken Unknown] multivitamin tablet 1 tab-cap PO QDAY 07/17/15 [History Confirmed 09/25/17 Last Taken Unknown] nitroglycerin 0.4 mg sublingual tablet 0.4 mg SUBLINGUAL Q5-15MIN PRN 07/17/15 [ History Confirmed 09/25/17 Last Taken Unknown] ondansetron HCl 4 mg tablet 4 mg PO QDAY PRN tab 05/21/17 [History Confirmed Last Taken Unknown] ranitidine 150 mg tablet 150 mg PO QHS #30 tab 05/21/17 [Rx Confirmed 09/25/17 Last Taken Unknown] denosumab 60 mg/mL subcutaneous syringe 60 mg SUB-Q ONCE #1 ml 08/06/17 [Rx Confirmed 09/25/17 Last Taken Unknown] Medical - DS: Hosp Hospital course: Ms. Martinez is a 72 year old F was fairly independent at baseline, comes in to the ER with onset of fever, shaking chills and weakness that has evolved over 48 hours. Patient recently had a UTI and was treated with Macrobid and has been doing better until 48 hours prior to presentation. Patient has associated lightheadedness and dizziness. she however denies chest pain shortness of breath. She said the symptoms became quite rapidly. She denies weight loss diarrhea dysuria, joint swelling, rash. Initial workup in the ER was significant for chest infiltrates along with fever of 102, white count 12.5 with 10% bands. Patient received antibiotics after cultures were drawn. patient carries history of multiple allergies including cephalosporins and chloroquine and hence started on Invanz. and admitted to the hospital for further managmeent. 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 Its likely that she had mycoplasma pna, she was treated for this with zithromycin, invanz discontinued. She reponded well to treatment. The patient will complete her course of zithromax as outpatient. AT time of discharge she is afebrile, tolerating po well and back to baseline status. The patient CXR also mentioned possible mild chf, the patient does have a cardiac history and an echo was done, she was not clnically volume overloaded, i believe that the radiologist called mycoplasma pna as chf on CXR. Patient echo is not read yet, but patient plans to establish care with Dr Low , I have advised her to follow up with him with regards to findings on the echo as its likely eh will be interpreting the study. There was some concern for tachcyardia intermittent in the hospital. TSH Was neg and CTA was also neg. HTN: Blood pressure for the patient has been on the softer end, she has been on coreg and losartan for same. I have advised her to hold off on her losartan ( she takes a low dose 12.5), till she is seen by outpatient provider. Once its noted that bp is stable and improving, then this medication can be resumed. She had diarrhea during the hospital stay, but she tested neg for Cdiff, at the time of dischaerge her diarrhea was resolving. The rest of the stay in the hospital was uneventful. Discharge diagnosis: Mycoplasma PNA - Time Spent with Patient Total time spent providing and/or coordinating discharge services: Greater than 30 minutes Medical - DS: Exam - Constitutional Vitals: Vital Signs Temp Pulse Resp BP Pulse Ox 09/27/17 11:14 98.2 F 18 100/56 92 09/27/17 07:26 97.8 F 18 97/54 93 09/27/17 04:00 98.1 F 96 H 18 98/59 93 09/26/17 23:53 97.9 F 85 16 92/54 94 09/26/17 19:39 98.0 F 88 20 122/55 98 09/26/17 15:50 98.2 F 16 93/51 96 Intake and Output 09/26/17 09/27/17 09/27/17 21:59 05:59 13:59 Intake Total 760 / 760 120 / 120 Output Total 725 / 725 1200 / 1200 Balance 35 / 35 -1200 / -1200 120 / 120 Intake: Oral 760 / 760 120 / 120 Output: Urine Catheter Amount 725 / 725 1200 / 1200 Other: Meal Breakfast Percent of Meal Consumed 100% Stool Size Small Moderate Stool Color Brown Brown Black Stool Consistency Soft Soft Loose # Bowel Movements 1 # of times incontinent of 1 Bowels Weight 135 lb 8 oz Additional comments: Constitutional; Afebrile, cooperative, alert, not in distress. Eyes- No icterus, , No periorbital swelling Ears- Ext ear normal, hearing normal to conversation. Neck- Midline trachea, supple Respiratory system: Air Entry equal on both sides, No crackles or wheezing, no rhonchi. CVS- Rate rhythm regular, S1,S2 heard, no gallop, no rub. Abdomen- Soft nontender abdomen, no organomegaly, no tenderness, no guarding or rigidity, [employer]- AOOx3, moving all extremities, no gross focal deficit noted. Medical - DS: Data Labs on day of discharge: Labs from last 24 hours 09/27/17 09/27/17 03:51 03:51 WBC 7.8 RBC 3.51 L Hgb 10.5 L Hct 32.3 L MCV 92.0 MCH 30.0 MCHC 32.6 RDW 13.8 Plt Count 158 MPV 7.1 L Total Counted 100 Seg Neutrophils % 50 Band Neutrophils % 1 Lymphocytes % 41 Monocytes % (Manual) 6 Eosinophils % (Manual) 2 Platelet Estimate Normal RBC Morphology Normal Sodium 142 Potassium 3.5 Chloride 108 Carbon Dioxide 24 Anion Gap 10.0 BUN 10 Creatinine 0.9 GFR Calculation 63 Glucose 90 Uric Acid 4.1 Calcium 7.2 L Phosphorus 1.9 L Magnesium 2.2 Total Bilirubin 0.2 Direct Bilirubin < 0.2 GGT 19 AST 22 ALT 38 Alkaline Phosphatase 79 Lactate Dehydrogenase 200 Total Protein 5.7 L Albumin 3.2 Globulin 2.5 Albumin/Globulin Ratio 1.3 Triglycerides 122 Preliminary micro results at discharge 09/24/17 22:23 Blood Culture - Preliminary Blood 09/24/17 23:01 Blood Culture - Preliminary Blood Medical - DS: A/P - Patient/Caregiver Discharge Instructions Activity: increase activity as tolerated Diet: Low Sodium (2gm), Cardiac Additional Instructions: Follow up with PCP in 1 week, Take azithromycin 250mg orally once daily for 3 more days, prescription sent to your pharmacy Please do not take cozar (losartan) this medication is for blood pressure, your primary care provider will check your blood pressure and decide if you need to be on it. Follow up with Dr Low, [employer] in 1-2 weeks. He will review the echo findings with you. If there is any change in her condition, shortness of breath fever chest pain or any other acute concerning symptom please do not hesitate to go back to the emergency room. - Follow up Plan Follow up with: Joanne Gould MD [Primary Care Provider] - Disposition: Home, Self-Care Prognosis: Fair Rehab Potential: Fair I certify that the patient requires SNF services: No Overall status at discharge: patient is progressing back to baseline Medical - DS: Qual - VTE Deep Vein Thrombosis/Pulmonary Embolism Present on Admission: No
[2017-09-27] MEDS ORDERED: 0.9 % SODIUM CHLORIDE 10 ML SYRINGE IV SCH (14:00)
[2017-09-27] MEDS ORDERED: SENNOSIDES/DOCUSATE SODIUM 1 TAB TABLET PO SCH (21:00)
[2017-09-27] MEDS ORDERED: FAMOTIDINE 20 MG TABLET PO SCH (21:00)
[2017-09-27] MEDS ORDERED: ATORVASTATIN 20 MG TABLET PO SCH (21:00)
[2017-09-28] MEDS ORDERED: MULTIVIT,THER IRON,CA,FA & MIN 1 TABLET PO SCH (09:00)
== END 2017-09-27 14:50 | disposition home or self-care (01) | DRG 871 ==
LOC: ED 21:59 → ICU 09-25 00:55
PROVIDERS: ADMIT Internal Medicine; ATTEND Internal Medicine

== ENCOUNTER 2020-09-01 08:57 | Inpatient (IN) ==
[2020-09-01] MEDS ORDERED: ONDANSETRON 4 MG/2 ML VIAL IV ONE (09:31)
[2020-09-01] MEDS ORDERED: morphine 4 MG/ML VIAL IV ONE ×2 (09:31→15:39)
--- NOTE | 2020-09-01 09:44 | Emergency Department Note ---
Fall HPI General Chief Complaint: Fall Stated Complaint: Fall, rib pain Time Seen by Provider: 09/01/20 09:03 Source: patient Mode of arrival: wheelchair History of Present Illness HPI Narrative: Narrative: Presents to room T3 for evaluation of left-sided pain after a fall. The patient reports that she was diagnosed with a urinary tract i nfection yesterday and started on Macrobid. She states that she had a fall last night. She does not recall the mechanism of the fall and is not entirely clear if she passed out or if she stumbled. She denied any recollection of symptoms preceding the fall. She denies any chest pain or shortness of breath. No palpitations. She does report some pain on the left side of her rib cage extending down into the left side of her abdomen. She also reports some pain in the cervical and thoracic spine however the patient does have a certain component of chronic pain in the spine and she states this may be her arthritis. She denies any focal motor weakness or sensory numbness. She denies any hea dache or visual changes. She denies any change in bowel habits and no blood in the urine. The patient's pain on the left side is constant. Made worse with movement or palpation. Related Data Home Medications Medication Instructions Recorded Confirmed atorvastatin 20 mg PO HS 06/28/15 04/05/20 hydrocodone-acetaminophen 1 tab PO Q4-6HP PRN 06/28/15 04/05/20 aspirin 81 mg PO DAILY 07/09/15 04/05/20 carvedilol 12.5 mg tablet 12.5 mg PO BID 07/17/15 04/05/20 fluoxetine 20 mg capsule 20 mg PO QDAY 07/17/15 04/05/20 multivitamin 1 tab-cap PO QDAY 07/17/15 04/05/20 nitroglycerin 0.4 mg sublingual 0.4 mg SUBLINGUAL Q5-15MIN PRN 07/17/15 04/05/20 tablet ondansetron HCl 4 mg tablet 4 mg PO QDAY PRN tab 05/21/17 04/05/20 cholecalciferol (vitamin D3) See Rx Instructions .ROUTE .COMPLEX 09/06/18 04/05/20 omeprazole 20 mg capsule,delayed 20 mg PO QDAY 09/06/18 04/05/20 release furosemide 20 mg tablet 60 mg PO QDAY tab 02/08/19 04/05/20 potassium chloride 10 mEq See Rx Instructions .ROUTE 11/03/19 04/05/20 tablet,extended release .COMPLEX tab Allergies Allergy/AdvReac Type Severity Reaction Status Date / Time Amoxicillin [AMOXICILLIN] Allergy Intermediate HIVES Verified 09/01/20 08:58 Cefaclor [From CECLOR] Allergy Intermediate HIVES Verified 09/01/20 08:58 cephalexin [From KEFLEX] Allergy Intermediate HIVES Verified 09/01/20 08:58 Sulfa (Sulfonamide AdvReac Mild VOMIT Verified 09/01/20 08:58 Antibiotics) [SULFA (SULFONAMIDE ANTIBIOTICS)] ciprofloxacin [From Cipro] AdvReac Unknown Unknown Verified 09/01/20 08:58 Review of Systems ROS ROS Narrative: Narrative: All systems ED: reviewed and negative except as stated. PFSH Narrative Patient History Narrative: Narrative: Medical/Surgical/Family History All Active Problems (Updated 09/01/20 @ 14:08 by Duarte Parada MD) Acute UTI (Acute) Fall (Acute) Blunt chest trauma (Acute) Blunt abdominal trauma (Acute) Secondary hyperparathyroidism of renal origin (Chronic) Localized edema due to fluid overload (Chronic) Gastritis (Acute) Cystitis (Acute) Yeast infection of the vagina (Acute) Acute sinusitis (Acute) Sepsis (Acute) Pneumonia (Acute) Laceration of left leg (Acute) Urinary hesitancy (Chronic) Chronic kidney disease (CKD) stage G3b/A2, moderately decreased glomerular filtr ation rate (GFR) between 30-44 mL/min/1.73 square meter and albuminuria creatinine ratio between 30-299 mg/g (Chronic) Polyarthralgia (Chronic) Leg pain (Chronic) Low back pain (Chronic) Osteoarthritis (Chronic) Back Pain (Chronic) Pain in both knees (Chronic) correction current use of therapeutic drug (Chronic) Osteoporosis (Chronic) Long-term current use of steroids (Chronic) Fibromyalgia (Chronic) Other chest pain (Chronic) Lupus arthritis (Chronic) Sciatica (Chronic) Lumbar disc disease (Chronic) Thoracic outlet syndrome (Chronic) Eczema (Chronic) Irritable bowel (Chronic) Mixed hyperlipidemia (Chronic) Disturbance, sleep (Chronic) Migraine (Chronic) Depression (Chronic) Bilateral plantar fasciitis (Chronic) Trochanteric bursitis (Chronic) Spondylosis, lumbosacral (Chronic) Pelvic pain (Chronic) Autonomic neuropathy (Chronic) Neck pain (Chronic) Arthritis (Chronic) Essential hypertension (Chronic) Malaise and fatigue (Chronic) Degenerative disc disease, lumbar (Chronic) Anemia (Chronic) Esophageal reflux (Chronic) Neuritis (Chronic) Plantar fasciitis of left foot (Chronic) 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) Fatigue (Chronic) Abnormal stress echocardiogram (Chronic) Myocardial infarction (Chronic) Edema (Chronic) Medical History Abnormal stress echocardiogram Anemia Arthritis Generalized Autonomic neuropathy Bilateral plantar fasciitis Chronic renal disease, stage II Cystitis Degenerative disc disease, lumbar With myelopathy Depression Disturbance, sleep NOS Eczema Edema Esophageal reflux Essential hypertension Benign Fatigue Fibromyalgia Gastritis Hypokalemia Hypokalemia Hypotension Iatrogenic [place]'s syndrome Irritable bowel Leg pain Long-term current use of steroids Low back pain Lumbar disc disease Lupus arthritis Malaise and fatigue Migraine Mixed hyperlipidemia Myocardial infarction Neck pain Neuritis Osteoarthritis Other chest pain Pelvic pain Chronic Plantar fasciitis of left foot Polyarthralgia Sciatica Septic shock SLE (systemic lupus erythematosus) Spondylosis, lumbosacral Thoracic outlet syndrome Trochanteric bursitis Left UTI (urinary tract infection) Yeast infection of the vagina Surgical History Hx of appendectomy Incidental with hysterectomy Hx of cholecystectomy Hx of hernia repair Hx of percutaneous transluminal coronary angioplasty Hx of shoulder surgery Left shoulder repair Hx of tubal ligation S/P partial hysterectomy Family History Mother , Bed ridden Pulmonary edema Fracture of hip Carcinoma of breast Hypertension Cerebrovascular accident (CVA) Deep vein thrombosis (DVT) Father , Age 68 Myocardial Infarction Cerebrovascular accident (CVA) Sisters Myocardial Infarction Alzheimer's disease Crohn's disease Brothers Cerebrovascular accident (CVA) Son Ulcerative colitis Hemorrhagic stroke Social History Smoking Status: Former smoker Alcohol Intake Frequency: does not drink Substance Use: does not use Exam Narrative Narrative: Narrative: General General appearance: Present alert and in no apparent distress Head Head: Present atraumatic, normocephalic and normal inspection Eye Eye: Present normal appearance and EOMI; Absent conjunctival injection ENT ENT: Present normal exam and mucous membranes moist Neck Neck: Present normal inspection, trachea midline and tenderness (Diffuse midline tenderness along the spine without step-offs or deformity.) Chest Chest: Present normal inspection, symmetric chest wall rise and tenderness (T enderness to palpation along the lateral aspect of the rib cage as well as the left upper quadrant. No crepitus or deformity) Respiratory Respiratory: Present normal lung sounds bilaterally; Absent respiratory distress Cardiovascular Cardiovascular: Present regular rate, normal rhythm and normal heart sounds Adbominal Abdominal: Present soft and tenderness (Diffuse tenderness along the left side of the abdomen primarily in the left upper quadrant. No external oseguera of trauma.); Absent distention, guarding and rebound Extremities Extremities: Present normal inspection; Absent tenderness Back Back: Present normal inspection and tenderness (Moderate diffuse tenderness along the midline thoracic and lumbar spine. No step-off) Neurological Neurological: Present alert, oriented X3 and CN II-XII intact; Absent motor sensory deficit Psychiatric Psychiatric: Present normal affect and normal mood Skin Skin: Present warm (WNL) and dry; Absent rash Course Vital Signs Vital signs: Vital Signs Temperature 97.9 F 09/01/20 08:58 Pulse Rate 114 H 09/01/20 08:58 Respiratory Rate 16 09/01/20 08:58 Blood Pressure 110/67 09/01/20 08:58 Pulse Oximetry (%) 92 09/01/20 08:58 Temperature 97.9 F 09/01/20 08:58 Pulse Rate 94 H 09/01/20 12:45 Respiratory Rate 25 H 09/01/20 12:45 Blood Pressure 117/72 09/01/20 12:13 Pulse Oximetry (%) 95 09/01/20 12:45 [facility] Narrative Medical decision making narrative: Narrative: Patient presents for evaluation of a fall after recent diagnosis of UTI. The patient is unclear as to if this was a syncopal event or mechanical fall. The patient did have a CT scan of the head, C-spine as well as the chest abdomen pelvis. There is no evidence of injury associated with this fall. Patient's EKG shows a mild sinus tachycardia but otherwise no ischemic or injury pattern. The patient does have a leukocytosis of 15.2 The rest of the labs are unremarkable. The patient does meet SIRS criteria, but does not have any evidence of end-organ damage, the lactic acid level is normal. The patient's tachycardia has resolved. The patient is currently on antibiotics, Macrobid for the UTI. The patient does take hydrocodone for pain due to underlying chronic pain syndrome. Can be discharged home. She is given return precautions. Lab Data Lab results reviewed: Yes I reviewed the patient's lab results. Result diagrams: 09/01/20 09:42 09/01/20 09:42 Labs: Lab Results 09/01/20 09/01/20 09/01/20 Range/Units 09:42 09:42 09:42 WBC 15.7 H (4.5-11.0) K/mcL RBC 4.07 (4.00-5.20) M/mcL Hgb 12.2 (12.0-15.0) g/dL Hct 37.5 (36.0-48.0) % MCV 92.1 (80.0-100.0) fL MCH 30.0 (26.0-34.0) pg MCHC 32.5 (31.0-36.0) g/dL RDW 14.3 (11.5-14.5) % Plt Count 193 (140-440) K/mcL MPV 9.2 (7.4-10.4) fL Neut % (Auto) 76.2 (38.0-78.0) % Lymph % (Auto) 16.6 (15.0-49.0) % Clinch % (Auto) 6.2 (1.0-12.0) % Eos % (Auto) 0.8 (0.0-7.0) % Baso % (Auto) 0.2 (0.0-2.0) % Lymph # (Auto) 2.61 (1.50-4.80) K/mcL Clinch # (Auto) 0.98 H (0.10-0.90) K/mcL Eos # (Auto) 0.12 (0.00-0.70) K/mcL Baso # (Auto) 0.03 (0.00-0.20) K/mcL Absolute Neutrophils 11.97 H (1.80-8.00) K/mcL PT 14.2 (11.9-14.5) sec INR 1.1 (0.9-1.1) VBG Lactic Acid (0.5-2.0) mmol/L Sodium 138 (133-145) mmol/L Potassium 3.4 (3.3-5.1) mmol/L Chloride 100 (96-108) mmol/L Carbon Dioxide 26 (22-30) mmol/L Anion Gap 12.0 (8.0-16.0) BUN 19 (8-23) mg/dL Creatinine 1.4 H (0.6-1.1) mg/dL POC Creatinine (0.6-1.2) mg/dL GFR Calculation 36 Glucose 107 H (70-105) mg/dL Calcium 8.6 (8.6-10.4) mg/dL Total Bilirubin 0.8 (0.1-1.0) mg/dL AST 21 (<32) U/L ALT 19 (<40) U/L Alkaline Phosphatase 78 (39-117) U/L Troponin T (<0.03) ng/mL Total Protein 6.4 (5.9-8.4) gm/dL Albumin 3.9 (3.2-5.2) gm/dL Globulin 2.5 (2.2-3.7) gm/dL Albumin/Globulin Ratio 1.6 (1.0-2.3) 09/01/20 09/01/20 09/01/20 Range/Units 09:42 09:42 09:42 WBC (4.5-11.0) K/mcL RBC (4.00-5.20) M/mcL Hgb (12.0-15.0) g/dL Hct (36.0-48.0) % MCV (80.0-100.0) fL MCH (26.0-34.0) pg MCHC (31.0-36.0) g/dL RDW (11.5-14.5) % Plt Count (140-440) K/mcL MPV (7.4-10.4) fL Neut % (Auto) (38.0-78.0) % Lymph % (Auto) (15.0-49.0) % Clinch % (Auto) (1.0-12.0) % Eos % (Auto) (0.0-7.0) % Baso % (Auto) (0.0-2.0) % Lymph # (Auto) (1.50-4.80) K/mcL Clinch # (Auto) (0.10-0.90) K/mcL Eos # (Auto) (0.00-0.70) K/mcL Baso # (Auto) (0.00-0.20) K/mcL Absolute Neutrophils (1.80-8.00) K/mcL PT (11.9-14.5) sec INR (0.9-1.1) VBG Lactic Acid 1.3 (0.5-2.0) mmol/L Sodium (133-145) mmol/L Potassium (3.3-5.1) mmol/L Chloride (96-108) mmol/L Carbon Dioxide (22-30) mmol/L Anion Gap (8.0-16.0) BUN (8-23) mg/dL Creatinine (0.6-1.1) mg/dL POC Creatinine 1.4 H (0.6-1.2) mg/dL GFR Calculation Glucose (70-105) mg/dL Calcium (8.6-10.4) mg/dL Total Bilirubin (0.1-1.0) mg/dL AST (<32) U/L ALT (<40) U/L Alkaline Phosphatase (39-117) U/L Troponin T < 0.01 (<0.03) ng/mL Total Protein (5.9-8.4) gm/dL Albumin (3.2-5.2) gm/dL Globulin (2.2-3.7) gm/dL Albumin/Globulin Ratio (1.0-2.3) Radiology Data Radiology results reviewed: Yes I reviewed the patient's radiology results. EKG Data EKG #1: EKG attestation: Yes I reviewed and interpreted this EKG., Yes There are no EKG findings of acute coronary syndrome and Yes This EKG will be read by bander and cellophaner machine helper EKG results narrative: Sinus tachycardia, rate 109, normal ST segments, normal QRS, no ectopy Rhythm Strip Data Rhythm Strip Rate: 110 Interpretation: sinus tachycardia Pulse Oximetry Data Pulse Ox %: 95 Interpretation: room air, normal Discharge Plan Patient/Caregiver Discharge Instructions Pt seen by STEWARD/STEWARDESS NIGHT/PA only: No Clinical Impression: Acute UTI, Fall, Blunt chest trauma, Blunt abdominal trauma Instructions: Urinary Tract Infection in Older Adults (ED), Fall Prevention for Older Adults (ED) Patient Disposition: Home, Self-Care Follow up with: Joanne Gould MD [Primary Care Provider] - Prescriptions: No Action fluoxetine [Prozac] 20 mg capsule 20 mg PO QDAY RF: 0 multivitamin tablet 1 tab-cap PO QDAY RF: 0 nitroglycerin [Nitrostat] 0.4 mg tablet, sublingual 0.4 mg SUBLINGUAL Q5-15MIN PRN (Reason: Chest Pain) RF: 0 carvedilol 12.5 mg tablet 12.5 mg PO BID RF: 0 ondansetron HCl 4 mg tablet 4 mg PO QDAY PRN (Reason: Nausea) RF: 0 cholecalciferol (vitamin D3) See Rx Instructions .ROUTE .COMPLEX RF: 0 omeprazole 20 mg capsule,delayed release(DR/EC) 20 mg PO QDAY RF: 0 furosemide 20 mg tablet 60 mg PO QDAY RF: 0 potassium chloride 10 mEq tablet extended release See Rx Instructions .ROUTE .COMPLEX RF: 0 atorvastatin 20 MG tablet 20 mg PO HS RF: 0 hydrocodone-acetaminophen 1 TAB tablet 1 tab PO Q4-6HP PRN (Reason: Pain) RF: 0 aspirin 81 MG tablet,chewable 81 mg PO DAILY RF: 0
[2020-09-01 10:22] LABS: Basophils # (Auto) 0.03 K/mcL (0.00-0.20); Basophils % (Auto) 0.2 % (0.0-2.0); Eosinophils # (Auto) 0.12 K/mcL (0.00-0.70); Eosinophils % (Auto) 0.8 % (0.0-7.0); Hematocrit 37.5 % (36.0-48.0); Hemoglobin 12.2 g/dL (12.0-15.0); Lymphocytes # (Auto) 2.61 K/mcL (1.50-4.80); Lymphocytes % (Auto) 16.6 % (15.0-49.0); Mean Cell Volume 92.1 fL (80.0-100.0); Mean Corpuscular HGB Conc 32.5 g/dL (31.0-36.0); Mean Platelet Volume 9.2 fL (7.4-10.4); Monocytes # (Auto) 0.98 K/mcL (0.10-0.90); Monocytes % (Auto) 6.2 % (1.0-12.0); Neutrophils % (Auto) 76.2 % (38.0-78.0); Platelet Count 193 K/mcL (140-440); RBC 4.07 M/mcL (4.00-5.20); Red Cell Distribution Width 14.3 % (11.5-14.5); WBC 15.7 K/mcL (4.5-11.0)
[2020-09-01 10:39] LABS: INR 1.1 (0.9-1.1); Prothrombin Time 14.2 sec (11.9-14.5)
[2020-09-01] MEDS ORDERED: HYDROmorphone 1 MG/ML SYRINGE IV ONE (10:40)
[2020-09-01 10:54] LABS: ALT/SGPT 19 U/L (<40); AST/SGOT 21 U/L (<32); Albumin 3.9 gm/dL (3.2-5.2); Albumin/Globulin Ratio 1.6 (1.0-2.3); Alkaline Phosphatase 78 U/L (39-117); Bilirubin,Total 0.8 mg/dL (0.1-1.0); Blood Urea Nitrogen 19 mg/dL (8-23); Calcium 8.6 mg/dL (8.6-10.4); Carbon Dioxide 26 mmol/L (22-30); Chloride 100 mmol/L (96-108); Globulin 2.5 gm/dL (2.2-3.7); Glomerular Filtration Rate 36; Glucose 107 mg/dL (70-105)
--- NOTE | 2020-09-01 12:10 | Cat Scan Report ---
CLINICAL INFORMATION: , Trauma COMPARISON: None. TECHNIQUE: 2.5 mm helical slices were obtained in the skull base to vertex. Following reconstruction, axial reformatted images were reviewed at bone and parenchymal windows. The exam was performed using radiation dose optimization techniques including, but not limited to, automated exposure control, adjustment of the mA and/or kV according to patient size and use of iterative reconstruction technique. FINDINGS: The ventricles, sulci, fissures, and cisterns are symmetrically enlarged compatible with mild age-related atrophy. No extra-axial fluid collections are identified. Mild patchy chronic ischemic changes in the deep cerebral white matter are expected for age. There is no evidence of hemorrhage, mass effect, or edema. Bone windows show no osseous abnormality. IMPRESSION: Mild atrophy and patchy chronic ischemic changes in the deep cerebral white matter - expected for age. Interpreted and Authenticated by: Bucky Olivera 09/01/20
--- NOTE | 2020-09-01 12:28 | Cat Scan Report ---
CLINICAL INFORMATION: Trauma now with left-sided chest and abdominal pain COMPARISON: Abdomen CT 07/22/2018 CT anterior chest 10/01/2017 TECHNIQUE: Enteric contrast was utilized. 80 cc of Isovue-[id number] were injected intravenously, and 50 seconds later 2.5 mm helical slices were obtained from the lung apices through the subtrochanteric regions of the femurs. Following reconstruction, 2.5 mm sagittal, coronal and axial reformatted images were processed and reviewed at multiple windows and levels. 7 mm MIP reconstructions were obtained through the lungs to optimize nodule detection.The exam was performed using radiation dose optimization techniques including, but not limited to, automated exposure control, adjustment of the mA and/or kV according to patient size and use of iterative reconstruction technique. FINDINGS: Pulmonary parenchymal windows show chronic bronchitis featuring elevated lung volumes wall thickening/dilatation of bronchi and scattered scarring in the periphery of both lungs. This is unchanged. No bullae appreciated. There are no infiltrates or significant nodules. No effusions or evidence of pneumothorax. Mediastinal windows show the heart is mildly enlarged with extremely heavy calcific plaque in the coronary arteries. There is also calcification in the aortic annulus region. The noncontrast thoracic aorta and pulmonary arteries are normal diameter. Small hiatal hernia is appreciated. No hemorrhage, air or adenopathy in the mediastinum.. Thyroid is unremarkable. Abdominal images show the noncontrast liver to be normal. The gallbladder is surgically absent. Common bile duct is moderately dilated (14 mm) but unchanged. There is moderate atrophy of the pancreatic head, uncinate process and neck - no focal pancreatic lesions. Both noncontrasted adrenal glands and spleen are normal. Mild bilateral renal atrophy is noted: the right kidney is 8.9 cm in length and the left kidney is 8.4 centers in length. No focal renal lesions. There is mild ectasia of the infrarenal abdominal aorta with a diameter of 2.3 cm There is no free air, free fluid or adenopathy. Pelvic images show urinary bladder is normal. Hysterectomy and oophorectomy changes appreciated. Noncontrasted stomach, small large bowel grossly normal. Bone windows show mild chronic L2 compression fracture IMPRESSION: 1. No acute posttraumatic change. 2. Mild chronic bronchitis - stable 3. Mild pancreatic atrophy of the head neck and proximal body region that stable. 4. 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 Please correlate with obstructive LFT pattern. 5. Mild chronic L2 compression fracture. Small hiatal hernia 6. Mild ectasia infrarenal abdominal aorta consider follow-up ultrasound in one to two years Interpreted and Authenticated by: Bucky Olivera 09/01/20
--- NOTE | 2020-09-01 12:29 | Cat Scan Report ---
CLINICAL INFORMATION: COMPARISON: None. TECHNIQUE: 0.625 mm helical slices were obtained from the skull base through the superior T2 end plate, and following reconstruction, 2.5 mm sagittal, coronal and axial reformations were then processed. The exam was reviewed at bone and soft tissue windows. The exam was performed using radiation dose optimization techniques including, but not limited to, automated exposure control, adjustment of the mA and/or kV according to patient size and use of iterative reconstruction technique. FINDINGS: The cervical spine is normal in curvature and alignment. No fracture or other osseous abnormality identified. The cervical cord is normal in contour and caliber without hemorrhage or other abnormality. Soft tissues are normal. The C2-3 and C3-4 disc levels are normal. C4-5, mild broad disc spur complex minimally impinges the thecal sac The C5-6, C6-7 and C7-T1 disc levels are normal IMPRESSION: No fracture or posttraumatic change. Mild degeneration Interpreted and Authenticated by: Bucky Olivera 09/01/20
[2020-09-01 13:46] LABS: Appearance,Urine CLOUDY (Clear); Bacteria,Urine FEW /hpf (0); Bilirubin,Urine Negative (Negative); Color,Urine AMBER; Culture Indicated,Urine yes; Glucose,Urine (UA) Negative (Negative); Ketones,Urine Negative (Negative); Leukocyte Esterase,Urine 500 /ug (Negative); Mucus,Urine FEW /hpf; Nitrate,Urine POS (Negative); Protein,Urine 30 mg/dL (Negative); Specific Gravity,Urine 1.013 (1.000-1.035); Urine Blood 0.03 mg/dL (Negative); Urine Hyaline Cast 15 /lph (0-2); Urine RBC 14 /hpf (0-3); Urine Squamous Epithelial Cell 2 /hpf (0-4); Urine Transitional Epi Cells 1 /hpf (0-2); Urine WBC > 182 /hpf (0-4); Urobilinogen,Urine Negative
[2020-09-01] MEDS ORDERED: MEROPENEM 1 GM in 0.9 % SODIUM CHLORIDE 50 ML IV STA (14:57)
--- NOTE | 2020-09-01 15:38 | Internal Med History&Physical ---
HPI History of Present Illness Patient information: Note initiated : 09/01/20 at 3:35 pm Service Date, if different from initiated Date: [] Patient: Candy Martinez 75 y/o F admitted on for Fall, rib pain. Chief Complaint: History of present illness: Ms. Martinez is a 75 year old F who lives with her son at home that has been in her baseline state of health until few days prior to presentation started getting sick, increasing weakness, lightheaded dizzy and unable to perform ADLs. She was diagnosed with UTI and was started on Macrobid the day prior to presentation. She sustained a fall last evening but does not remember the event. She denies seizure-like episode/incontinence episode chest palpitation or thunderclap headache prior to fall. She was brought in the ER for evaluation. Initial work-up was consistent with severe sepsis with endorgan dysfunction with white count over 15 K/hypoxia requiring oxygen, remarkable pyuria with bacteriuria and creatinine at 1.4. Patient underwent extensive imaging including CT abdomen chest and pelvis that was unremarkable for acute source of infection. Cultures were drawn and antibiotics were initiated on meropenem. Subsequently hospital service consulted and had a complicated UTI, severe sepsis along with hypoxic respiratory failure. Patient was unable to undergo CT angiogram chest evaluated creatinine. Ultrasound lower extremity Dopplers were ordered At the time of my evaluation patient is very weak fatigued. She remains tachycardic at 120s and tachypneic. Systolics around 120. Was able to endorse history as above. Denies fever, shaking chills, diarrhea, dysuria, hematuria, cough but endorses shortness of breath. Review of systems 10 point review system was performed and is negative except for ones discussed above PFSH PFSH All Active Problems (Updated 09/01/20 @ 15:18 by Duarte Parada MD) Acute UTI (Acute) Fall (Acute) Blunt chest trauma (Acute) Blunt abdominal trauma (Acute) Hypoxia (Acute) SIRS (systemic inflammatory response syndrome) (Acute) Secondary hyperparathyroidism of renal origin (Chronic) Localized edema due to fluid overload (Chronic) Gastritis (Acute) Cystitis (Acute) Yeast infection of the vagina (Acute) Acute sinusitis (Acute) Sepsis (Acute) Pneumonia (Acute) Laceration of left leg (Acute) Urinary hesitancy (Chronic) Chronic kidney disease (CKD) stage G3b/A2, moderately decreased glomerular filtration rate (GFR) between 30-44 mL/min/1.73 square meter and albuminuria creatinine ratio between 30-299 mg/g (Chronic) Polyarthralgia (Chronic) Leg pain (Chronic) Low back pain (Chronic) Osteoarthritis (Chronic) Back Pain (Chronic) 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 in 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 (Chronic) 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) Osteoporosis (Chronic) Long-term current use of steroids (Chronic) Fibromyalgia (Chronic) Other chest pain (Chronic) Lupus arthritis (Chronic) Sciatica (Chronic) Lumbar disc disease (Chronic) Thoracic outlet syndrome (Chronic) Eczema (Chronic) Irritable bowel (Chronic) Mixed hyperlipidemia (Chronic) Disturbance, sleep (Chronic) Migraine (Chronic) Depression (Chronic) Bilateral plantar fasciitis (Chronic) Trochanteric bursitis (Chronic) Spondylosis, lumbosacral (Chronic) Pelvic pain (Chronic) Autonomic neuropathy (Chronic) Neck pain (Chronic) Arthritis (Chronic) Essential hypertension (Chronic) Malaise and fatigue (Chronic) Degenerative disc disease, lumbar (Chronic) Anemia (Chronic) Esophageal reflux (Chronic) Neuritis (Chronic) Plantar fasciitis of left foot (Chronic) 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) Fatigue (Chronic) Abnormal stress echocardiogram (Chronic) Myocardial infarction (Chronic) Edema (Chronic) Medical History Abnormal stress echocardiogram Anemia Arthritis Generalized Autonomic neuropathy Bilateral plantar fasciitis Chronic renal disease, stage II Cystitis Degenerative disc disease, lumbar With myelopathy Depression Disturbance, sleep NOS Eczema Edema Esophageal reflux Essential hypertension Benign Fatigue Fibromyalgia Gastritis Hypokalemia Hypokalemia Hypotension Iatrogenic [place]'s syndrome Irritable bowel Leg pain Long-term current use of steroids Low back pain Lumbar disc disease Lupus arthritis Malaise and fatigue Migraine Mixed hyperlipidemia Myocardial infarction Neck pain Neuritis Osteoarthritis Other chest pain Pelvic pain Chronic Plantar fasciitis of left foot Polyarthralgia Sciatica Septic shock SLE (systemic lupus erythematosus) Spondylosis, lumbosacral Thoracic outlet syndrome Trochanteric bursitis Left UTI (urinary tract infection) Yeast infection of the vagina Surgical History Hx of appendectomy Incidental with hysterectomy Hx of cholecystectomy Hx of hernia repair Hx of percutaneous transluminal coronary angioplasty Hx of shoulder surgery Left shoulder repair Hx of tubal ligation S/P partial hysterectomy Family History Mother , Bed ridden Pulmonary edema Fracture of hip Carcinoma of breast Hypertension Cerebrovascular accident (CVA) Deep vein thrombosis (DVT) Father , Age 68 Myocardial Infarction Cerebrovascular accident (CVA) Sisters Myocardial Infarction Alzheimer's disease Crohn's disease Brothers Cerebrovascular accident (CVA) Son Ulcerative colitis Hemorrhagic stroke Social History (Updated 11/03/19 @ 11:48 by Yanelis Valdovinos MD) housing: house marital status: education level: middle school occupational status: retired physical activity: walking frequency: 5-6 times per week alcohol intake frequency: does not drink substance use type: does not use seatbelt use: always MEDS/ALLERGIES Home Medications and Allergies Home Medications Medication Instructions Recorded Confirmed Type atorvastatin 20 mg PO HS 06/28/15 09/01/20 History hydrocodone-acetaminophen 1 tab PO Q4-6HP PRN 06/28/15 09/01/20 History aspirin 81 mg PO DAILY 07/09/15 09/01/20 History carvedilol 12.5 mg tablet See Rx Instructions .ROUTE .COMPLEX 07/17/15 09/01/20 History fluoxetine 20 mg capsule 20 mg PO QDAY 07/17/15 09/01/20 History multivitamin 1 tab-cap PO QDAY 07/17/15 09/01/20 History nitroglycerin 0.4 mg sublingual 0.4 mg SUBLINGUAL Q5-15MIN PRN 07/17/15 09/01/20 History tablet ondansetron HCl 4 mg tablet 4 mg PO QDAY PRN tab 05/21/17 09/01/20 History cholecalciferol (vitamin D3) See Rx Instructions .ROUTE .COMPLEX 09/06/18 09/01/20 History omeprazole 20 mg capsule,delayed 20 mg PO QDAY 09/06/18 09/01/20 History release furosemide 20 mg tablet 60 mg PO QDAY tab 02/08/19 09/01/20 History potassium chloride 10 mEq 20 meq PO BID tab 11/03/19 09/01/20 History tablet,extended release Allergies Allergy/AdvReac Type Severity Reaction Status Date / Time Amoxicillin [AMOXICILLIN] Allergy Intermediate HIVES Verified 09/01/20 08:58 Cefaclor [From CECLOR] Allergy Intermediate HIVES Verified 09/01/20 08:58 cephalexin [From KEFLEX] Allergy Intermediate HIVES Verified 09/01/20 08:58 Sulfa (Sulfonamide AdvReac Mild VOMIT Verified 09/01/20 08:58 Antibiotics) [SULFA (SULFONAMIDE ANTIBIOTICS)] ciprofloxacin [From Cipro] AdvReac Unknown Unknown Verified 09/01/20 08:58 EXAM Constitutional Vitals: Temp Pulse Resp BP Pulse Ox 97.9 F 102 H 32 H 128/69 92 09/01/20 08:58 09/01/20 15:24 09/01/20 15:24 09/01/20 15:24 09/01/20 15:24 DATA Data Completed and Pending Labs: Labs from last 24 hours 09/01/20 09/01/20 09/01/20 12:51 09:42 09:42 WBC RBC Hgb Hct MCV MCH MCHC RDW Plt Count MPV Neut % (Auto) Lymph % (Auto) [place] % (Auto) Eos % (Auto) Baso % (Auto) Lymph # (Auto) [place] # (Auto) Eos # (Auto) Baso # (Auto) Absolute Neutrophils PT INR VBG Lactic Acid Sodium Potassium Chloride Carbon Dioxide Anion Gap BUN Creatinine POC Creatinine 1.4 H GFR Calculation Glucose Calcium Total Bilirubin AST ALT Alkaline Phosphatase Troponin T < 0.01 Total Protein Albumin Globulin Albumin/Globulin Ratio Urine Color [place] Urine Appearance Cloudy A Urine pH 8.0 Ur Specific [place] 1.013 Urine Protein 30 A Urine Glucose (UA) Negative Urine Ketones Negative Urine Occult Blood 0.03 Urine Nitrate Pos A Urine Bilirubin Negative Urine Urobilinogen Negative Ur Leukocyte Esterase 500 A Urine RBC 14 H Urine WBC > 182 H Ur Squamous Epith Cells 2 Ur Transition Epith Cell 1 Urine Bacteria Few A Hyaline Casts 15 H Urine Mucus Few A Ur Culture Indicated? yes 09/01/20 09/01/20 09/01/20 09:42 09:42 09:42 WBC RBC Hgb Hct MCV MCH MCHC RDW Plt Count MPV Neut % (Auto) Lymph % (Auto) [place] % (Auto) Eos % (Auto) Baso % (Auto) Lymph # (Auto) [place] # (Auto) Eos # (Auto) Baso # (Auto) Absolute Neutrophils PT 14.2 INR 1.1 VBG Lactic Acid 1.3 Sodium 138 Potassium 3.4 Chloride 100 Carbon Dioxide 26 Anion Gap 12.0 BUN 19 Creatinine 1.4 H POC Creatinine GFR Calculation 36 Glucose 107 H Calcium 8.6 Total Bilirubin 0.8 AST 21 ALT 19 Alkaline Phosphatase 78 Troponin T Total Protein 6.4 Albumin 3.9 Globulin 2.5 Albumin/Globulin Ratio 1.6 Urine Color Urine Appearance Urine pH Ur Specific [place] Urine Protein Urine Glucose (UA) Urine Ketones Urine Occult Blood Urine Nitrate Urine Bilirubin Urine Urobilinogen Ur Leukocyte Esterase Urine RBC Urine WBC Ur Squamous Epith Cells Ur Transition Epith Cell Urine Bacteria Hyaline Casts Urine Mucus Ur Culture Indicated? 09/01/20 09:42 WBC 15.7 H RBC 4.07 Hgb 12.2 Hct 37.5 MCV 92.1 MCH 30.0 MCHC 32.5 RDW 14.3 Plt Count 193 MPV 9.2 Neut % (Auto) 76.2 Lymph % (Auto) 16.6 [place] % (Auto) 6.2 Eos % (Auto) 0.8 Baso % (Auto) 0.2 Lymph # (Auto) 2.61 [place] # (Auto) 0.98 H Eos # (Auto) 0.12 Baso # (Auto) 0.03 Absolute Neutrophils 11.97 H PT INR VBG Lactic Acid Sodium Potassium Chloride Carbon Dioxide Anion Gap BUN Creatinine POC Creatinine GFR Calculation Glucose Calcium Total Bilirubin AST ALT Alkaline Phosphatase Troponin T Total Protein Albumin Globulin Albumin/Globulin Ratio Urine Color Urine Appearance Urine pH Ur Specific [place] Urine Protein Urine Glucose (UA) Urine Ketones Urine Occult Blood Urine Nitrate Urine Bilirubin Urine Urobilinogen Ur Leukocyte Esterase Urine RBC Urine WBC Ur Squamous Epith Cells Ur Transition Epith Cell Urine Bacteria Hyaline Casts Urine Mucus Ur Culture Indicated? A/P Narrative A/P Narrative: * Severe sepsis with organ dysfunction including hypoxia, change in mental status-pancultures/broad antibiotic/crystalloids/sepsis management per guidelines * Acute hypoxic respiratory failure, likely secondary sepsis endorgan dysfunction. No evidence of pneumonia on imaging. Continue supplemental oxygen * Complicated UTI-initiate broad-spectrum antibiotic coverage and de-escalate based on culture sensitivities * Syncope-unclear etiology likely sepsis endorgan dysfunction. Check orthostatic/echocardiogram. classroom monitor to rule out arrhythmia. Echocardiogram to evaluate right heart pressure * Fall / weakness PT OT eval for gait and safety training/SNF placement evaluation * PAin management continue home medications * Anxiety disorder continue fluoxetine * HLD continue statin * HTN continue hold Coreg until systolics improve and sepsis resolves * GERD continue PPI * H/o CKD IIIb, avoid nephrotoxins, monitor renal function * Prophylaxis Heparin PLAN * PCU admit * Broad Abx * Supplemental O2 * ECHO/TELE/Orthostatics * PT OT/nutrition support/SNF placement evaluation * Pre-existing medical condition management home medications as above * Discharge planning Time Spent With Patient Time: Total time spent is greater than 50% in coordination of care (as documented) at patient's floor/unit and/or counseling patient:
[2020-09-01] MEDS ORDERED: BISACODYL 10 MG SUPP.RECT PR PRN (17:22)
[2020-09-01] MEDS ORDERED: VANCOMYCIN PER PHARMACY IV SCH (17:22)
[2020-09-01] MEDS ORDERED: POLYETHYLENE GLYCOL 3350 17 GM PACKET PO PRN (17:22)
[2020-09-01] MEDS ORDERED: MELATONIN 3 MG TABLET PO PRN (17:22)
[2020-09-01] MEDS ORDERED: POTASSIUM CHLORIDE 40 MEQ in DEXTROSE 5% IN WATER 500 ML IV PRN (17:22)
[2020-09-01] MEDS ORDERED: ACETAMINOPHEN 650 MG/65 ML BAG IV PRN (17:22)
[2020-09-01] MEDS ORDERED: MAGNESIUM SULFATE 2 GM/50 ML BAG IV PRN (17:22)
[2020-09-01] MEDS ORDERED: ONDANSETRON 4 MG ODT TABLET SL PRN (17:22)
[2020-09-01] MEDS ORDERED: NOREPINEPHRINE BITARTRATE 8 MG in 0.9 % SODIUM CHLORIDE 242 ML IV PRN (17:22)
[2020-09-01] MEDS ORDERED: ONDANSETRON 4 MG/2 ML VIAL IV PRN (17:22)
[2020-09-01] MEDS: 0.9 % SODIUM CHLORIDE 1,000 ML IV SCH (17:31)
[2020-09-01] MEDS ORDERED: VANCOMYCIN 1,000 MG in 0.9 % SODIUM CHLORIDE 250 ML IV ONE (18:00)
--- NOTE | 2020-09-01 19:16 | Ultrasound Report ---
CLINICAL INFORMATION: Lateral leg pain and swelling COMPARISON: None. FINDINGS: The entire deep venous system, both lower extremities, including the common femoral, superficial femoral, popliteal and paired trifurcation calf veins are easily compressible and show normal venous blood flow on color and spectral Doppler. No evidence of thrombus IMPRESSION: Negative exam - no evidence of deep vein thrombosis in either lower extremity. Interpreted and Authenticated by: Bucky Olivera 09/01/20
[2020-09-01] MEDS: 0.9 % SODIUM CHLORIDE 250 ML IV SCH (19:40)
[2020-09-01] MEDS ORDERED: MEROPENEM 1 GM in 0.9 % SODIUM CHLORIDE 50 ML IV SCH (21:00)
[2020-09-01] MEDS: DOCUSATE SODIUM 100 MG CAPSULE PO SCH (21:27)
[2020-09-01] MEDS: SENNOSIDES/DOCUSATE SODIUM 1 TAB TABLET PO SCH (21:27)
[2020-09-01] MEDS: ACETAMINOPHEN 325 MG TABLET PO PRN (21:28)
[2020-09-01] MEDS: HEPARIN 5,000 UNIT/ML VIAL SQ SCH (21:30)
[2020-09-01] MEDS: 0.9 % SODIUM CHLORIDE 10 ML SYRINGE IV SCH (23:00)
[2020-09-02] MEDS: 0.9 % SODIUM CHLORIDE 10 ML SYRINGE IV SCH ×5 (02:15→21:43)
[2020-09-02] MEDS: ACETAMINOPHEN 325 MG TABLET PO PRN ×4 (02:35→23:55)
[2020-09-02 07:19] LABS: Basophils # (Auto) 0.02 K/mcL (0.00-0.20); Basophils % (Auto) 0.2 % (0.0-2.0); Eosinophils # (Auto) 0.15 K/mcL (0.00-0.70); Eosinophils % (Auto) 1.1 % (0.0-7.0); Hematocrit 33.5 % (36.0-48.0); Hemoglobin 10.5 g/dL (12.0-15.0); Lymphocytes # (Auto) 2.03 K/mcL (1.50-4.80); Lymphocytes % (Auto) 15.3 % (15.0-49.0); Mean Cell Volume 95.4 fL (80.0-100.0); Mean Corpuscular HGB Conc 31.3 g/dL (31.0-36.0); Mean Platelet Volume 9.5 fL (7.4-10.4); Monocytes # (Auto) 0.81 K/mcL (0.10-0.90); Monocytes % (Auto) 6.1 % (1.0-12.0); Neutrophils % (Auto) 77.3 % (38.0-78.0); Platelet Count 156 K/mcL (140-440); RBC 3.51 M/mcL (4.00-5.20); Red Cell Distribution Width 14.6 % (11.5-14.5); WBC 13.2 K/mcL (4.5-11.0)
[2020-09-02 07:37] LABS: ALT/SGPT 24 U/L (<40); AST/SGOT 32 U/L (<32); Albumin 3.2 gm/dL (3.2-5.2); Albumin/Globulin Ratio 1.1 (1.0-2.3); Alkaline Phosphatase 122 U/L (39-117); Bilirubin,Direct 0.2 mg/dL (<0.3); Bilirubin,Total 0.8 mg/dL (0.1-1.0); Blood Urea Nitrogen 26 mg/dL (8-23); Calcium 8.2 mg/dL (8.6-10.4); Carbon Dioxide 24 mmol/L (22-30); Chloride 101 mmol/L (96-108); Globulin 2.8 gm/dL (2.2-3.7); Glomerular Filtration Rate 36; Glucose 82 mg/dL (70-105); Lactate Dehydrogenase 336 U/L (135-225); Phosphorous 4.8 mg/dL (2.5-4.5); Triglycerides 79 mg/dL (<150); Uric Acid 9.4 mg/dL (2.5-8.0)
[2020-09-02] MEDS: 0.9 % SODIUM CHLORIDE 250 ML IV SCH ×2 (08:30→18:51)
[2020-09-02] MEDS: POTASSIUM CHLORIDE 20 MEQ PACKET PO PRN (09:59)
[2020-09-02] MEDS: MEROPENEM 1 GM in 0.9 % SODIUM CHLORIDE 50 ML IV SCH ×2 (09:59→21:43)
[2020-09-02] MEDS: MULTIVIT,THER IRON,CA,FA & MIN 1 TABLET PO SCH (10:00)
[2020-09-02] MEDS: HEPARIN 5,000 UNIT/ML VIAL SQ SCH ×2 (10:00→21:42)
[2020-09-02] MEDS: DOCUSATE SODIUM 100 MG CAPSULE PO SCH ×2 (10:00→21:42)
[2020-09-02] MEDS: VANCOMYCIN 1,000 MG in 0.9 % SODIUM CHLORIDE 250 ML IV SCH (10:00)
[2020-09-02] MEDS: IPRATROPIUM/ALBUTEROL 3 ML AMPUL.NEB NEB PRN ×2 (12:04→21:50)
--- NOTE | 2020-09-02 12:33 | Internal Med Progress Note ---
SUBJECTIVE Subjective Patient information: Note initiated : 09/02/20 at 12:26 pm Service Date, if different from initiated Date: [] Patient: Candy Martinez a 75 y/o F admitted on 09/01/20 for Fall, rib pain. Chief Complaint: [] Interval history: Ms. Martinez is a 75 year old F who lives with her son at home that has been in her baseline state of health until few days prior to presentation started getting sick, increasing weakness, lightheaded dizzy and unable to perform ADLs. She was diagnosed with UTI and was started on Macrobid the day prior to presentation. She sustained a fall last evening but does not remember the event. She denies seizure-like episode/incontinence episode chest palpitation or thunderclap headache prior to fall. She was brought in the ER for evaluation. Initial work-up was consistent with severe sepsis with endorgan dysfunction with white count over 15 K/hypoxia requiring oxygen, remarkable pyuria with bacteriuria and creatinine at 1.4. Patient underwent extensive imaging including CT abdomen chest and pelvis that was unremarkable for acute source of infection. Cultures were drawn and antibiotics were initiated on meropenem. Subsequently hospital service consulted and had a complicated UTI, severe sepsis along with hypoxic respiratory failure. Patient was unable to undergo CT angiogram chest evaluated creatinine. Ultrasound lower extremity Dopplers were ordered At the time of my evaluation patient is very weak fatigued. She remains tachycardic at 120s and tachypneic. Systolics around 120. Was able to endorse history as above. Denies fever, shaking chills, diarrhea, dysuria, hematuria, cough but endorses shortness of breath. 09/02-patient doing better since previous day. White count downtrending to 13 K from 15, renal function stable. Systolics at goal with no evidence of endorgan hypoperfusion., No family at bedside, intermittent tachycardia, on 2 L oxygen improving respiratory status. Minimally confused/encephalopathic. Lower extremity venous Doppler negative. Cultures negative so far. Elevated procalcitonin at 2.6, improved tachypnea down from 30s to 20s, remains incon tinent Constitutional Vitals: Vital Signs Temp Pulse Resp BP Pulse Ox 98 F 90 25 H 128/72 97 09/02/20 12:03 09/02/20 12:05 09/02/20 12:05 09/02/20 12:03 09/02/20 12:05 Period Temp Pulse Resp BP Sys/[place] Pulse Ox Last 24 Hr 97.7 F-100.5 F 78-119 16-38 94-155/47-76 90-100 Intake and Output 09/01/20 09/02/20 09/02/20 21:59 05:59 13:59 Intake Total 300 170 Output Total 1 17 1 Balance 299 153 -1 Weight 65.771 kg 64.138 kg Respond to commands Intermittently confused Telemetry tachycardia Nontender nondistended abdomen Lymphedema Intake & Output: Intake & Output 09/01/20 09/02/20 09/02/20 21:59 05:59 13:59 Intake Total 300 170 Output Total 1 17 1 Balance 299 153 -1 Weight 65.771 kg 64.138 kg Intake: IV 300 50 Merrem 1 gm In Sodium Chloride 50 50 0.9% 50 ml @ 100 mls/hr IV Q12H [facility] Rx#:[id number] Vancomycin 1,000 mg In Sodium 250 Chloride 0.9% 250 ml @ 250 mls/ hr IV ONCE ONE Rx#:[id number] Oral 120 Output: Urine Catheter Amount 15 # of times incontinent of urine 1 2 1 Other: Urine Appearance Cloudy Fem Cath Cloudy Urine Color Bright Yellow Fem Cath Bright Yellow Urine Odor Strong Strong Fem Cath Strong Stool Size Moderate Stool Color Brown Stool Consistency Loose # Voids 1 # Bowel Movements 2 # of times incontinent of 1 Bowels OBJ DATA Labs CBC & Chem 7: 09/02/20 05:08 09/02/20 05:08 Labs: Abnormal Lab Results 09/02/20 09/02/20 09/01/20 05:08 05:08 12:51 WBC 13.2 H RBC 3.51 L Hgb 10.5 L Hct 33.5 L RDW 14.6 H [place] # (Auto) Absolute Neutrophils 10.23 H BUN 26 H Creatinine 1.4 H POC Creatinine Glucose Uric Acid 9.4 H Calcium 8.2 L Phosphorus 4.8 H AST 32 H Alkaline Phosphatase 122 H Lactate Dehydrogenase 336 H Procalcitonin Urine Appearance Cloudy A Urine Protein 30 A Urine Nitrate Pos A Ur Leukocyte Esterase 500 A Urine RBC 14 H Urine WBC > 182 H Urine Bacteria Few A Hyaline Casts 15 H Urine Mucus Few A 09/01/20 09/01/20 09/01/20 09:42 09:42 09:42 WBC RBC Hgb Hct RDW [place] # (Auto) Absolute Neutrophils BUN Creatinine 1.4 H POC Creatinine 1.4 H Glucose 107 H Uric Acid Calcium Phosphorus AST Alkaline Phosphatase Lactate Dehydrogenase Procalcitonin 2.61 H Urine Appearance Urine Protein Urine Nitrate Ur Leukocyte Esterase Urine RBC Urine WBC Urine Bacteria Hyaline Casts Urine Mucus 09/01/20 09:42 WBC 15.7 H RBC Hgb Hct RDW [place] # (Auto) 0.98 H Absolute Neutrophils 11.97 H BUN Creatinine POC Creatinine Glucose Uric Acid Calcium Phosphorus AST Alkaline Phosphatase Lactate Dehydrogenase Procalcitonin Urine Appearance Urine Protein Urine Nitrate Ur Leukocyte Esterase Urine RBC Urine WBC Urine Bacteria Hyaline Casts Urine Mucus Meds: Medications Acetaminophen (Acetaminophen 325 Mg Tablet) 650 mg PO Q4-6HP PRN; Protocol PRN Reason: Per Pain Protocol/Fever > 101 Last Admin: 09/02/20 11:04 Dose: 650 mg Documented by: Albuterol/Ipratropium (Ipratropium/Albuterol 3 Ml Ampul.Neb) 3 ml NEB Q4HP PRN PRN Reason: Shortness Of Breath Last Admin: 09/02/20 12:04 Dose: 3 ml Documented by: Bisacodyl (Bisacodyl 10 Mg Supp.Rect) 10 mg ID Q2-3DAYS PRN PRN Reason: Constipation Docusate Sodium (Docusate Sodium 100 Mg Capsule) 100 mg PO BID [facility] Last Admin: 09/02/20 10:00 Dose: 100 mg Documented by: Heparin Sodium (Porcine) (Heparin 5,000 Unit/Ml Vial) 5,000 unit SQ Q12 [facility] Last Admin: 09/02/20 10:00 Dose: 5,000 unit Documented by: Potassium Chloride 40 meq/ (Dextrose) 520 mls @ 130 mls/hr IV UD PRN PRN Reason: K+ = or < 3.5 Magnesium Sulfate (Magnesium Sulfate) 2 gm in 50 mls @ 50 mls/hr IV UD PRN PRN Reason: MG = or < 1.7 Sodium Chloride (Sodium Chloride 0.9%) 1,000 mls @ 50 mls/hr IV .Q20H [facility] Stop: 09/04/20 05:21 Last Admin: 09/01/20 17:31 Dose: 50 mls/hr Documented by: Norepinephrine Bitartrate 8 mg (/ Sodium Chloride) 250 mls @ 18.75 mls/hr IV Q14H PRN; Protocol PRN Reason: Keep MAP >65 Sodium Chloride (Sodium Chloride 0.9%) 250 mls @ 20 mls/hr IV .[id number] [facility] Last Admin: 09/02/20 08:30 Dose: Not Given Documented by: Acetaminophen (Ofirmev) 650 mg in 65 mls @ 130 mls/hr IV Q6HP PRN; Protocol PRN Reason: Per Pain Protocol/Fever > 101 Meropenem 1 gm/ Sodium (Chloride) 50 mls @ 100 mls/hr IV Q12H [facility]; Protocol Last Admin: 09/02/20 09:59 Dose: 100 mls/hr Documented by: Vancomycin HCl 1,000 mg/ (Sodium Chloride) 250 mls @ 250 mls/hr IV Q24H [facility] Last Admin: 09/02/20 10:00 Dose: 250 mls/hr Documented by: Iron Carb/Multivit/[place]/Folic Acid (Multivit,Ther Iron,Ca,Fa & Min 1 Tablet) 1 tab PO DAILY [facility] Last Admin: 09/02/20 10:00 Dose: 1 tab Documented by: Melatonin (Melatonin 3 Mg Tablet) 3 mg PO HSP PRN PRN Reason: Insomnia Ondansetron HCl (Ondansetron 4 Mg Odt Tablet) 4 mg SL Q4-6HP PRN; Protocol PRN Reason: Nausea And Vomiting Ondansetron HCl (Ondansetron 4 Mg/2 Ml Vial) 4 mg IV Q4-6HP PRN; Protocol PRN Reason: Nausea And Vomiting Polyethylene Glycol (Polyethylene Glycol 3350 17 Gm Packet) 17 gm PO DAILYP PRN PRN Reason: Constipation Potassium Chloride (Potassium Chloride 20 Meq Packet) 40 meq PO DAILYP PRN PRN Reason: K+ < 3.5 Last Admin: 09/02/20 09:59 Dose: 40 meq Documented by: Senna/Docusate Sodium (Sennosides/Docusate Sodium 1 Tab Tablet) 1 tab PO HS [facility] Last Admin: 09/01/20 21:27 Dose: 1 tab Documented by: Sodium Chloride (0.9 % Sodium Chloride 10 Ml Syringe) 10 ml IV Q8 [facility] Last Admin: 09/02/20 04:57 Dose: Not Given Documented by: Vancomycin HCl (Vancomycin Per Pharmacy) 1 order IV [facility]; Protocol A/P Narrative A/P Narrative: * Severe sepsis with organ dysfunction including hypoxia, change in mental status-clinical improvement noted on meropenem/vancomycin. Negative pancultures/broad antibiotic * Acute hypoxic respiratory failure, sepsis endorgan dysfunction. continue to wean oxygen as tolerated * Complicated UTI-continue broad-spectrum antibiotic coverage and de-escalate based on culture sensitivities * Syncope likely secondary to sepsis. Transient A. fib RVR followed by sinus tachycardia, echocardiogram to evaluate right heart pressure. Echo April 2019 EF 40% * Fall / weakness PT OT eval for gait and safety training/SNF placement evaluation * Pain management continue home medications * Anxiety disorder continue fluoxetine * HLD continue statin * HTN continue hold Coreg until systolics improve and sepsis resolves * GERD continue PPI * H/o CKD IIIb, avoid nephrotoxins, monitor renal function * Prophylaxis Heparin PLAN * Continue broad antibiotics de-escalate based on cultures * Wean oxygen as tolerated * PT OT/nutrition support/SNF placement evaluation per case management * Pre-existing medical condition management home medications as above Time Spent With Patient Time: Total time spent is greater than 50% in coordination of care (as docu mented) at patient's floor/unit and/or counseling patient: QUALITY VTE Deep Vein Thrombosis/Pulmonary Embolism Present on Admission: No
[2020-09-02] MEDS: 0.9 % SODIUM CHLORIDE 1,000 ML IV SCH (18:53)
[2020-09-02] MEDS: SENNOSIDES/DOCUSATE SODIUM 1 TAB TABLET PO SCH (21:43)
[2020-09-03] MEDS: ACETAMINOPHEN 325 MG TABLET PO PRN ×2 (04:12→09:17)
[2020-09-03] MEDS: 0.9 % SODIUM CHLORIDE 10 ML SYRINGE IV SCH ×3 (06:42→19:36)
[2020-09-03 06:45] LABS: Basophils # (Auto) 0.02 K/mcL (0.00-0.20); Basophils % (Auto) 0.2 % (0.0-2.0); Eosinophils % (Auto) 3.3 % (0.0-7.0); Hematocrit 33.9 % (36.0-48.0); Hemoglobin 10.5 g/dL (12.0-15.0); Lymphocytes # (Auto) 1.84 K/mcL (1.50-4.80); Lymphocytes % (Auto) 20.2 % (15.0-49.0); Mean Cell Volume 96.9 fL (80.0-100.0); Mean Platelet Volume 9.7 fL (7.4-10.4); Monocytes # (Auto) 0.63 K/mcL (0.10-0.90); Monocytes % (Auto) 6.9 % (1.0-12.0); Neutrophils % (Auto) 69.4 % (38.0-78.0); Platelet Count 166 K/mcL (140-440); Red Cell Distribution Width 14.8 % (11.5-14.5); WBC 9.1 K/mcL (4.5-11.0)
[2020-09-03 07:13] LABS: ALT/SGPT 22 U/L (<40); AST/SGOT 25 U/L (<32); Albumin 3.2 gm/dL (3.2-5.2); Albumin/Globulin Ratio 1.2 (1.0-2.3); Alkaline Phosphatase 87 U/L (39-117); Bilirubin,Direct < 0.2 mg/dL (0-0.3); Bilirubin,Total 0.4 mg/dL (0.1-1.0); Blood Urea Nitrogen 15 mg/dL (8-23); Calcium 8.4 mg/dL (8.6-10.4); Carbon Dioxide 24 mmol/L (22-30); Chloride 108 mmol/L (96-108); Globulin 2.6 gm/dL (2.2-3.7); Glomerular Filtration Rate 62; Glucose 81 mg/dL (70-105); Lactate Dehydrogenase 256 U/L (135-225); Phosphorous 1.5 mg/dL (2.5-4.5); Triglycerides 121 mg/dL (<150); Uric Acid 6.8 mg/dL (2.5-8.0)
[2020-09-03] MEDS: DOCUSATE SODIUM 100 MG CAPSULE PO SCH ×2 (09:10→20:54)
[2020-09-03] MEDS: 0.9 % SODIUM CHLORIDE 250 ML IV SCH ×2 (09:10→20:53)
[2020-09-03] MEDS: MULTIVIT,THER IRON,CA,FA & MIN 1 TABLET PO SCH (09:13)
[2020-09-03] MEDS: HEPARIN 5,000 UNIT/ML VIAL SQ SCH ×2 (09:13→20:54)
[2020-09-03] MEDS: MEROPENEM 1 GM in 0.9 % SODIUM CHLORIDE 50 ML IV SCH ×2 (09:13→20:59)
--- NOTE | 2020-09-03 09:14 | XRay Report ---
HISTORY: Fell, rib pain FINDINGS: There are prominent increased interstitial lung markings bilaterally. Subpleural fibrosis was seen throughout both lungs on the recent chest CT done on 09/01/20. Lung volumes are normal. There is no acute infiltrate. No mass or pleural effusion are present. There is no pneumothorax. The heart size is normal. Mediastinum and nila are normal. No fracture is identified. IMPRESSION: Mild pulmonary fibrosis and no acute abnormality Interpreted and Authenticated by: Davy Arredondo 09/03/20
--- NOTE | 2020-09-03 10:48 | Internal Med Progress Note ---
SUBJECTIVE Subjective Patient information: Note initiated : 09/03/20 at 10:44 am Service Date, if different from initiated Date: [] Patient: Candy Martinez 75 y/o F admitted on 09/01/20 for Fall, rib pain. Chief Complaint: [] Interval history: Ms. Martinez is a 75 year old F who lives with her son at home that has been in her baseline state of health until few days prior to presentation started getting sick, increasing weakness, lightheaded dizzy and unable to perform ADLs. She was diagnosed with UTI and was started on Macrobid the day prior to presentation. She sustained a fall last evening but does not remember the event. She denies seizure-like episode/incontinence episode chest palpitation or thunderclap headache prior to fall. She was brought in the ER for evaluation. Initial work-up was consistent with severe sepsis with endorgan dysfunction with white count over 15 K/hypoxia requiring oxygen, remarkable pyuria with bacteriuria and creatinine at 1.4. Patient underwent extensive imaging including CT abdomen chest and pelvis that was unremarkable for acute source of infection. Cultures were drawn and antibiotics were initiated on meropenem. Subsequently hospital service consulted and had a complicated UTI, severe sepsis along with hypoxic respiratory failure. Patient was unable to undergo CT angiogram chest evaluated creatinine. Ultrasound lower extremity Dopplers were ordered At the time of my evaluation patient is very weak fatigued. She remains tachycardic at 120s and tachypneic. Systolics around 120. Was able to endorse history as above. Denies fever, shaking chills, diarrhea, dysuria, hematuria, cough but endorses shortness of breath. 09/02-patient doing better since previous day. White count downtrending to 13 K from 15, renal function stable. Systolics at goal with no evidence of endorgan hypoperfusion., No family at bedside, intermittent tachycardia, on 2 L oxygen improving respiratory status. Minimally confused/encephalopathic. Lower extremity venous Doppler negative. Cultures negative so far. Elevated procalcitonin at 2.6, improved tachypnea down from 30s to 20s, remains incon tinent Constitutional Vitals: Vital Signs Temp Pulse Resp BP Pulse Ox 98.4 F 98 H 26 H 135/73 92 09/03/20 08:02 09/03/20 09:43 09/03/20 09:43 09/03/20 08:10 09/03/20 09:43 Period Temp Pulse Resp BP Sys/Conroy Pulse Ox Last 24 Hr 98 F-99.5 F 74-98 18-29 102-148/18-101 91-100 Intake and Output 09/02/20 09/03/20 09/03/20 21:59 05:59 13:59 Intake Total 1382 290 Output Total 302 277 375 Balance 1080 13 -375 Weight 65.499 kg Intake & Output: Intake & Output 09/02/20 09/03/20 09/03/20 21:59 05:59 13:59 Intake Total 1382 290 Output Total 302 277 375 Balance 1080 13 -375 Weight 65.499 kg Intake: IV 1142 50 Sodium Chloride 0.9% 1,000 ml @ 1142 0 50 mls/hr IV .Q20H [facility] Rx#: [id number] Merrem 1 gm In Sodium Chloride 50 0.9% 50 ml @ 100 mls/hr IV Q12H [facility] Rx#:[id number] Oral 240 240 Output: Void Amount 200 125 125 # of times incontinent of urine 2 2 Urine/Stool Mix 100 150 250 Other: Meal Dinner Percent of Meal Consumed 50% Stool Size Moderate Moderate Small Stool Color Yellow Brown Brown Yellow Stool Consistency Loose Loose Soft Liquid # Voids 1 # Bowel Movements 1 1 # of times incontinent of 1 1 Bowels OBJ DATA Labs CBC & Chem 7: 09/03/20 04:48 09/03/20 04:48 Labs: Abnormal Lab Results 09/03/20 09/03/20 09/02/20 04:48 04:48 05:08 WBC RBC 3.50 L Hgb 10.5 L Hct 33.9 L RDW 14.8 H [place] # (Auto) Absolute Neutrophils BUN 26 H Creatinine 1.4 H POC Creatinine Glucose Uric Acid 9.4 H Calcium 8.4 L 8.2 L Phosphorus 1.5 L 4.8 H AST 32 H Alkaline Phosphatase 122 H Lactate Dehydrogenase 256 H 336 H Total Protein 5.8 L Procalcitonin Urine Appearance Urine Protein Urine Nitrate Ur Leukocyte Esterase Urine RBC Urine WBC Urine Bacteria Hyaline Casts Urine Mucus 09/02/20 09/01/20 09/01/20 05:08 12:51 09:42 WBC 13.2 H RBC 3.51 L Hgb 10.5 L Hct 33.5 L RDW 14.6 H [place] # (Auto) Absolute Neutrophils 10.23 H BUN Creatinine POC Creatinine Glucose Uric Acid Calcium Phosphorus AST Alkaline Phosphatase Lactate Dehydrogenase Total Protein Procalcitonin 2.61 H Urine Appearance Cloudy A Urine Protein 30 A Urine Nitrate Pos A Ur Leukocyte Esterase 500 A Urine RBC 14 H Urine WBC > 182 H Urine Bacteria Few A Hyaline Casts 15 H Urine Mucus Few A 09/01/20 09/01/20 09/01/20 09:42 09:42 09:42 WBC 15.7 H RBC Hgb Hct RDW [place] # (Auto) 0.98 H Absolute Neutrophils 11.97 H BUN Creatinine 1.4 H POC Creatinine 1.4 H Glucose 107 H Uric Acid Calcium Phosphorus AST Alkaline Phosphatase Lactate Dehydrogenase Total Protein Procalcitonin Urine Appearance Urine Protein Urine Nitrate Ur Leukocyte Esterase Urine RBC Urine WBC Urine Bacteria Hyaline Casts Urine Mucus Meds: Medications Acetaminophen (Acetaminophen 325 Mg Tablet) 650 mg PO Q4-6HP PRN; Protocol PRN Reason: Per Pain Protocol/Fever > 101 Last Admin: 09/03/20 09:17 Dose: 650 mg Documented by: Hydrocodone Bitart/Acetaminophen (Hydrocodone/Apap 10/325mg Tablet) 1 tab PO Q4-6HP PRN; Protocol PRN Reason: Pain Albuterol/Ipratropium (Ipratropium/Albuterol 3 Ml Ampul.Neb) 3 ml NEB Q4HP PRN PRN Reason: Shortness Of Breath Last Admin: 09/02/20 21:50 Dose: 3 ml Documented by: Aspirin (Aspirin 81 Mg Tab.Chew) 81 mg PO DAILY [facility] Atorvastatin Calcium (Atorvastatin 20 Mg Tablet) 20 mg PO HS [facility] Bisacodyl (Bisacodyl 10 Mg Supp.Rect) 10 mg [place] Q2-3DAYS PRN PRN Reason: Constipation Carvedilol (Carvedilol 12.5 Mg Tablet) 0 mg PO .COMPLEX [facility] Docusate Sodium (Docusate Sodium 100 Mg Capsule) 100 mg PO BID [facility] Last Admin: 09/03/20 09:10 Dose: Not Given Documented by: Fluoxetine HCl (Fluoxetine Hcl 20 Mg Capsule) 20 mg PO QDAY [facility] Furosemide (Furosemide 20 Mg Tablet) 60 mg PO QDAY [facility] Heparin Sodium (Porcine) (Heparin 5,000 Unit/Ml Vial) 5,000 unit SQ Q12 [facility] Last Admin: 09/03/20 09:13 Dose: 5,000 unit Documented by: Potassium Chloride 40 meq/ (Dextrose) 520 mls @ 130 mls/hr IV UD PRN PRN Reason: K+ = or < 3.5 Magnesium Sulfate (Magnesium Sulfate) 2 gm in 50 mls @ 50 mls/hr IV UD PRN PRN Reason: MG = or < 1.7 Sodium Chloride (Sodium Chloride 0.9%) 1,000 mls @ 50 mls/hr IV .Q20H [facility] Stop: 09/04/20 05:21 Last Infusion: 09/02/20 22:15 Dose: 50 mls/hr Documented by: Norepinephrine Bitartrate 8 mg (/ Sodium Chloride) 250 mls @ 18.75 mls/hr IV Q14H PRN; Protocol PRN Reason: Keep MAP >65 Sodium Chloride (Sodium Chloride 0.9%) 250 mls @ 20 mls/hr IV .[id number] [facility] Last Admin: 09/03/20 09:10 Dose: Not Given Documented by: Acetaminophen (Ofirmev) 650 mg in 65 mls @ 130 mls/hr IV Q6HP PRN; Protocol PRN Reason: Per Pain Protocol/Fever > 101 Meropenem 1 gm/ Sodium (Chloride) 50 mls @ 100 mls/hr IV Q12H [facility]; Protocol Last Admin: 09/03/20 09:13 Dose: 100 mls/hr Documented by: Vancomycin HCl 1,000 mg/ (Sodium Chloride) 250 mls @ 250 mls/hr IV Q24H [facility] Last Infusion: 09/02/20 11:00 Dose: Infused Documented by: Iron Carb/Multivit/[place]/Folic Acid (Multivit,Ther Iron,Ca,Fa & Min 1 Tablet) 1 tab PO DAILY [facility] Last Admin: 09/03/20 09:13 Dose: 1 tab Documented by: Melatonin (Melatonin 3 Mg Tablet) 3 mg PO HSP PRN PRN Reason: Insomnia Nitroglycerin (Nitroglycerin (Pp) 0.4 Mg Tab.Subl (#25)) 0.4 mg SL Q5-15MIN PRN PRN Reason: Chest Pain Non-Formulary Medication (Multivitamin) 1 tab-cap PO QDAY [facility] Non-Formulary Medication (Ondansetron Hcl) 4 mg PO QDAY PRN PRN Reason: Nausea Omeprazole (Omeprazole 20 Mg Capsule) 20 mg PO QDAY [facility] Ondansetron HCl (Ondansetron 4 Mg Odt Tablet) 4 mg SL Q4-6HP PRN; Protocol PRN Reason: Nausea And Vomiting Ondansetron HCl (Ondansetron 4 Mg/2 Ml Vial) 4 mg IV Q4-6HP PRN; Protocol PRN Reason: Nausea And Vomiting Last Admin: 09/03/20 08:46 Dose: 4 mg Documented by: Polyethylene Glycol (Polyethylene Glycol 3350 17 Gm Packet) 17 gm PO DAILYP PRN PRN Reason: Constipation Potassium Chloride (Potassium Chloride 20 Meq Packet) 40 meq PO DAILYP PRN PRN Reason: K+ < 3.5 Last Admin: 09/02/20 09:59 Dose: 40 meq Documented by: Potassium Chloride (Potassium Chloride 10 Meq Tablet) 20 meq PO BID [facility] Senna/Docusate Sodium (Sennosides/Docusate Sodium 1 Tab Tablet) 1 tab PO HS [facility] Last Admin: 09/02/20 21:43 Dose: Not Given Documented by: Sodium Chloride (0.9 % Sodium Chloride 10 Ml Syringe) 10 ml IV Q8 [facility] Last Admin: 09/03/20 06:42 Dose: 10 ml Documented by: Vancomycin HCl (Vancomycin Per Pharmacy) 1 order IV UD [facility]; Protocol A/P Narrative A/P Narrative: * Severe sepsis with organ dysfunction including hypoxia, ARF, change in mental status-clinical improvement noted on meropenem(multi drug allergies)/vancomycin. Pancultures/antibiotics * Complicated Proteus UTI-clinically improving on meropenem. * Acute hypoxic respiratory failure sepsis endorgan dysfunction-clinically resolved. Now on room air * Acute renal failure secondary to sepsis endorgan dysfunction. Creatinine down from 1.4-0.9. No evidence of obstructive uropathy on CT imaging 09/01 * Low phosphorus on replacement. * Syncope likely secondary to sepsis with hypotension. Transient A. fib RVR followed by sinus tachycardia, echocardiogram to evaluate right heart pressure. Previous echo April 2019 EF 40% * Fall / weakness PT OT eval for gait and safety training/SNF placement evaluation * Pain management continue home dose hydrocodone * Anxiety disorder continue fluoxetine * HLD continue statin * HTN continue hold Coreg until systolics improve and sepsis resolves * GERD continue PPI * Prophylaxis Heparin PLAN * Continue broad antibiotics de-escalate based on cultures * De-escalate antibiotics based on culture sensitivities * DC vancomycin * Phosphorus replacement * Monitor renal function * PT OT/nutrition support/SNF placement evaluation per case management * Pre-existing medical condition management home medications as above Time Spent With Patient Time: Total time spent is greater than 50% in coordination of care (as documented) at patient's floor/unit and/or counseling patient: QUALITY VTE Deep Vein Thrombosis/Pulmonary Embolism Present on Admission: No
[2020-09-03] MEDS: 0.9 % SODIUM CHLORIDE 1,000 ML IV SCH (11:03)
[2020-09-03] MEDS: VANCOMYCIN 1,000 MG in 0.9 % SODIUM CHLORIDE 250 ML IV SCH (11:03)
[2020-09-03] MEDS: IPRATROPIUM/ALBUTEROL 3 ML AMPUL.NEB NEB PRN (11:31)
[2020-09-03] MEDS ORDERED: NITROGLYCERIN 0.4 MG TAB.SUBL SL PRN (11:56)
[2020-09-03] MEDS: HYDROcodone/APAP 10/325MG TABLET PO PRN ×2 (11:56→19:55)
[2020-09-03] MEDS: OMEPRAZOLE 20 MG CAPSULE PO SCH (12:24)
[2020-09-03] MEDS: CARVEDILOL 12.5 MG TABLET PO SCH ×2 (12:24→17:21)
[2020-09-03] MEDS: FLUoxetine HCL 20 MG CAPSULE PO SCH (12:24)
[2020-09-03] MEDS: FUROSEMIDE 20 MG TABLET PO SCH (12:25)
[2020-09-03] MEDS: POTASSIUM CHLORIDE 10 MEQ TABLET PO SCH ×2 (12:25→16:14)
[2020-09-03] MEDS: ATORVASTATIN 20 MG TABLET PO SCH (20:56)
[2020-09-03] MEDS: SENNOSIDES/DOCUSATE SODIUM 1 TAB TABLET PO SCH (21:00)
[2020-09-03] MEDS: NEUTRA PHOS 1 PACKET PO SCH (21:08)
[2020-09-03] MEDS ORDERED: NEUTRA PHOS 1 PACKET ONE (21:09)
[2020-09-04] MEDS: 0.9 % SODIUM CHLORIDE 10 ML SYRINGE IV SCH ×4 (01:51→20:30)
[2020-09-04] MEDS: HYDROcodone/APAP 10/325MG TABLET PO PRN ×2 (02:12→20:27)
[2020-09-04] MEDS: 0.9 % SODIUM CHLORIDE 250 ML IV SCH ×2 (06:19→20:30)
[2020-09-04 06:52] LABS: Basophils # (Auto) 0.04 K/mcL (0.00-0.20); Basophils % (Auto) 0.5 % (0.0-2.0); Eosinophils # (Auto) 0.33 K/mcL (0.00-0.70); Eosinophils % (Auto) 3.9 % (0.0-7.0); Hematocrit 34.3 % (36.0-48.0); Hemoglobin 10.6 g/dL (12.0-15.0); Mean Cell Volume 95.3 fL (80.0-100.0); Mean Corpuscular HGB Conc 30.9 g/dL (31.0-36.0); Mean Platelet Volume 9.5 fL (7.4-10.4); Monocytes # (Auto) 0.82 K/mcL (0.10-0.90); Monocytes % (Auto) 9.6 % (1.0-12.0); Platelet Count 197 K/mcL (140-440); Red Cell Distribution Width 14.7 % (11.5-14.5); WBC 8.5 K/mcL (4.5-11.0)
[2020-09-04 07:20] LABS: ALT/SGPT 19 U/L (<40); AST/SGOT 18 U/L (<32); Albumin 3.2 gm/dL (3.2-5.2); Albumin/Globulin Ratio 1.3 (1.0-2.3); Alkaline Phosphatase 81 U/L (39-117); Bilirubin,Direct < 0.2 mg/dL (0-0.3); Bilirubin,Total 0.3 mg/dL (0.1-1.0); Blood Urea Nitrogen 11 mg/dL (8-23); Calcium 8.3 mg/dL (8.6-10.4); Carbon Dioxide 27 mmol/L (22-30); Chloride 105 mmol/L (96-108); Globulin 2.5 gm/dL (2.2-3.7); Glomerular Filtration Rate 49; Glucose 91 mg/dL (70-105); Lactate Dehydrogenase 226 U/L (135-225); Phosphorous 2.1 mg/dL (2.5-4.5); Triglycerides 135 mg/dL (<150); Uric Acid 6.7 mg/dL (2.5-8.0)
[2020-09-04] MEDS: HEPARIN 5,000 UNIT/ML VIAL SQ SCH ×2 (07:38→20:27)
[2020-09-04] MEDS: NEUTRA PHOS 1 PACKET PO SCH ×2 (07:38→20:27)
[2020-09-04] MEDS: FUROSEMIDE 20 MG TABLET PO SCH (07:38)
[2020-09-04] MEDS: OMEPRAZOLE 20 MG CAPSULE PO SCH (07:38)
[2020-09-04] MEDS: POTASSIUM CHLORIDE 10 MEQ TABLET PO SCH ×2 (07:38→17:54)
[2020-09-04] MEDS: MULTIVIT,THER IRON,CA,FA & MIN 1 TABLET PO SCH (07:39)
[2020-09-04] MEDS: ASPIRIN 81 MG TAB.CHEW PO SCH (07:39)
[2020-09-04] MEDS: CARVEDILOL 12.5 MG TABLET PO SCH ×2 (07:39→17:54)
[2020-09-04] MEDS: DOCUSATE SODIUM 100 MG CAPSULE PO SCH ×2 (07:39→20:29)
[2020-09-04] MEDS: FLUoxetine HCL 20 MG CAPSULE PO SCH (07:39)
[2020-09-04] MEDS: POTASSIUM CHLORIDE 20 MEQ PACKET PO PRN (08:50)
[2020-09-04] MEDS: MEROPENEM 1 GM in 0.9 % SODIUM CHLORIDE 50 ML IV SCH (08:50)
[2020-09-04] MEDS ORDERED: MULTIVIT,THER IRON,CA,FA & MIN 1 TABLET PO SCH (09:00)
[2020-09-04] MEDS: VANCOMYCIN 1,000 MG in 0.9 % SODIUM CHLORIDE 250 ML IV SCH (09:47)
[2020-09-04] MEDS: LOPERAMIDE 2 MG CAPSULE PO PRN ×3 (11:40→19:17)
[2020-09-04] MEDS: ACETAMINOPHEN 325 MG TABLET PO PRN (14:14)
[2020-09-04] MEDS ORDERED: diphenhydrAMINE 25 MG CAPSULE PO PRN (16:58)
--- NOTE | 2020-09-04 17:57 | Internal Med Progress Note ---
SUBJECTIVE Subjective Patient information: Note initiated : 09/04/20 at 5:49 pm Service Date, if different from initiated Date: [] Patient: Candy Martinez 75 y/o F admitted on 09/01/20 for Fall, rib pain. Chief Complaint: [Sepsis associated with UTI ] Overnight: Urine culture grew Proteus Mirabilis. Afebrile. Been on 1L/min supplemental oxygen via nasal cannula. Subjective: c/o dysuria, increased urinary frequency and urgency/hesitancy. Denies fever, chills, or sweating. Denies decreased appetite or general body weakness. Constitutional Vitals: Vital Signs Temp Pulse Resp BP Pulse Ox 36.9 C 89 22 123/58 97 09/04/20 16:01 09/04/20 16:36 09/04/20 16:36 09/04/20 16:01 09/04/20 16:36 Period Temp Pulse Resp BP Sys/Conroy Pulse Ox Last 24 Hr 36.6 C-37.7 C 79-96 17-33 95-135/53-86 91-100 Intake and Output 09/04/20 09/04/20 09/04/20 05:59 13:59 21:59 Intake Total 120 1500 300 Output Total 500 2028 900 Balance -380 -528 -600 Intake & Output: Intake & Output 09/04/20 09/04/20 09/04/20 05:59 13:59 21:59 Intake Total 120 1500 300 Output Total 500 2028 900 Balance -380 -528 -600 Intake: IV 1300 Sodium Chloride 0.9% 1,000 ml @ 1000 50 mls/hr IV .Q20H [facility] Rx#: [id number] Merrem 1 gm In Sodium Chloride 50 0.9% 50 ml @ 100 mls/hr IV Q12H [facility] Rx#:[id number] Vancomycin 1,000 mg In Sodium 250 Chloride 0.9% 250 ml @ 250 mls/ hr IV Q24H [facility] Rx#:[id number] Oral 120 200 300 Output: Void Amount 500 1325 900 # of times incontinent of urine 3 Stool 700 Other: Meal Breakfast Dinner Percent of Meal Consumed 100% 75% Urine Appearance Clear Clear Urine Color Bright Yellow Pale Pale Urine Odor Normal Stool Size Small Stool Color Green Brown Stool Consistency Loose Liquid # Voids 1 # Bowel Movements 1 # of times incontinent of 1 Bowels General appearance: cooperative and no acute distress Head Head exam: Present atraumatic and normocephalic Eye Eye exam: Present EOMI and PERRL ENT ENT exam: Present mucous membranes moist, normal exam and normal external ear exam Additional comments: Nasal cannula in place. Neck Neck exam: Present normal inspection; Absent lymphadenopathy, tenderness and thyromegaly Respiratory Respiratory exam: Absent accessory muscle use, respiratory distress and wheezes Cardiovascular Cardiovascular exam: Present normal rate and rhythm; Absent JVD GI/Abdominal GI/Abdominal exam: Present normal bowel sounds and soft; Absent organomegaly and tenderness Extremities Exam Extremities exam: Present full ROM, normal capillary refill and normal inspection; Absent tenderness Neurological Exam Neurological exam: Present alert, CN II-XII intact and oriented X3; Absent motor sensory deficit Psychiatric Psychiatric exam: Present normal affect and normal mood; Absent anxious and depressed Skin Skin exam: Present dry and intact OBJ DATA Labs CBC & Chem 7: 09/04/20 05:34 09/04/20 05:34 Labs: Abnormal Lab Results 09/04/20 09/04/20 09/03/20 05:34 05:34 04:48 WBC RBC 3.60 L Hgb 10.6 L Hct 34.3 L MCHC 30.9 L RDW 14.7 H Absolute Neutrophils Anion Gap 6.0 L BUN Creatinine Uric Acid Calcium 8.3 L 8.4 L Phosphorus 2.1 L 1.5 L AST Alkaline Phosphatase Lactate Dehydrogenase 226 H 256 H Total Protein 5.7 L 5.8 L Procalcitonin 09/03/20 09/02/20 09/02/20 04:48 05:08 05:08 WBC 13.2 H RBC 3.50 L 3.51 L Hgb 10.5 L 10.5 L Hct 33.9 L 33.5 L MCHC RDW 14.8 H 14.6 H Absolute Neutrophils 10.23 H Anion Gap BUN 26 H Creatinine 1.4 H Uric Acid 9.4 H Calcium 8.2 L Phosphorus 4.8 H AST 32 H Alkaline Phosphatase 122 H Lactate Dehydrogenase 336 H Total Protein Procalcitonin 09/01/20 09:42 WBC RBC Hgb Hct MCHC RDW Absolute Neutrophils Anion Gap BUN Creatinine Uric Acid Calcium Phosphorus AST Alkaline Phosphatase Lactate Dehydrogenase Total Protein Procalcitonin 2.61 H Meds: Medications Acetaminophen (Acetaminophen 325 Mg Tablet) 650 mg PO Q4-6HP PRN; Protocol PRN Reason: Per Pain Protocol/Fever > 101 Last Admin: 09/04/20 14:14 Dose: 650 mg Documented by: Hydrocodone Bitart/Acetaminophen (Hydrocodone/Apap 10/325mg Tablet) 1 tab PO Q4-6HP PRN; Protocol PRN Reason: Pain Last Admin: 09/04/20 02:12 Dose: 1 tab Documented by: Albuterol/Ipratropium (Ipratropium/Albuterol 3 Ml Ampul.Neb) 3 ml NEB Q4HP PRN PRN Reason: Shortness Of Breath Last Admin: 09/03/20 11:31 Dose: 3 ml Documented by: Aspirin (Aspirin 81 Mg Tab.Chew) 81 mg PO DAILY [facility] Last Admin: 09/04/20 07:39 Dose: 81 mg Documented by: Atorvastatin Calcium (Atorvastatin 20 Mg Tablet) 20 mg PO HS [facility] Last Admin: 09/03/20 20:56 Dose: 20 mg Documented by: Bisacodyl (Bisacodyl 10 Mg Supp.Rect) 10 mg [place] Q2-3DAYS PRN PRN Reason: Constipation Carvedilol (Carvedilol 12.5 Mg Tablet) 25 mg PO QAC [facility] Last Admin: 09/04/20 07:39 Dose: 25 mg Documented by: Carvedilol (Carvedilol 12.5 Mg Tablet) 12.5 mg PO QPMCC [facility] Last Admin: 09/03/20 17:21 Dose: 12.5 mg Documented by: Ciprofloxacin (Ciprofloxacin 250 Mg Tablet) 250 mg PO BID [facility]; Protocol Diphenhydramine HCl (Diphenhydramine 25 Mg Capsule) 50 mg PO Q4HP PRN PRN Reason: Allergic Symptoms Docusate Sodium (Docusate Sodium 100 Mg Capsule) 100 mg PO BID [facility] Last Admin: 09/04/20 07:39 Dose: 100 mg Documented by: Fluoxetine HCl (Fluoxetine Hcl 20 Mg Capsule) 20 mg PO QDAY [facility] Last Admin: 09/04/20 07:39 Dose: 20 mg Documented by: Furosemide (Furosemide 20 Mg Tablet) 60 mg PO QDAY [facility] Last Admin: 09/04/20 07:38 Dose: 60 mg Documented by: Heparin Sodium (Porcine) (Heparin 5,000 Unit/Ml Vial) 5,000 unit SQ Q12 [facility] Last Admin: 09/04/20 07:38 Dose: 5,000 unit Documented by: Potassium Chloride 40 meq/ (Dextrose) 520 mls @ 130 mls/hr IV UD PRN PRN Reason: K+ = or < 3.5 Magnesium Sulfate (Magnesium Sulfate) 2 gm in 50 mls @ 50 mls/hr IV UD PRN PRN Reason: MG = or < 1.7 Norepinephrine Bitartrate 8 mg (/ Sodium Chloride) 250 mls @ 18.75 mls/hr IV Q14H PRN; Protocol PRN Reason: Keep MAP >65 Sodium Chloride (Sodium Chloride 0.9%) 250 mls @ 20 mls/hr IV .[id number] [facility] Last Admin: 09/04/20 06:19 Dose: Not Given Documented by: Acetaminophen (Ofirmev) 650 mg in 65 mls @ 130 mls/hr IV Q6HP PRN; Protocol PRN Reason: Per Pain Protocol/Fever > 101 Iron Carb/Multivit/[place]/Folic Acid (Multivit,Ther Iron,Ca,Fa & Min 1 Tablet) 1 tab PO DAILY [facility] Last Admin: 09/04/20 07:39 Dose: 1 tab Documented by: Loperamide HCl (Loperamide 2 Mg Capsule) 2 mg PO PRN PRN PRN Reason: Diarrhea Last Admin: 09/04/20 16:02 Dose: 2 mg Documented by: Melatonin (Melatonin 3 Mg Tablet) 3 mg PO HSP PRN PRN Reason: Insomnia Nitroglycerin (Nitroglycerin 0.4 Mg Tab.Subl) 0.4 mg SL Q5M PRN PRN Reason: Chest Pain Omeprazole (Omeprazole 20 Mg Capsule) 20 mg PO [facility] Last Admin: 09/04/20 07:38 Dose: 20 mg Documented by: Ondansetron HCl (Ondansetron 4 Mg Odt Tablet) 4 mg SL Q4-6HP PRN; Protocol PRN Reason: Nausea And Vomiting Ondansetron HCl (Ondansetron 4 Mg/2 Ml Vial) 4 mg IV Q4-6HP PRN; Protocol PRN Reason: Nausea And Vomiting Last Admin: 09/03/20 08:46 Dose: 4 mg Documented by: Polyethylene Glycol (Polyethylene Glycol 3350 17 Gm Packet) 17 gm PO DAILYP PRN PRN Reason: Constipation Potassium Chloride (Potassium Chloride 20 Meq Packet) 40 meq PO DAILYP PRN PRN Reason: K+ < 3.5 Last Admin: 09/04/20 08:50 Dose: 40 meq Documented by: Potassium Chloride (Potassium Chloride 10 Meq Tablet) 20 meq PO BIDCC [facility] Last Admin: 09/04/20 07:38 Dose: 20 meq Documented by: Potassium/Phosphorus/Sodium (Neutra Phos 1 Packet) 1 packet PO BID [facility] Last Admin: 09/04/20 07:38 Dose: 1 packet Documented by: Senna/Docusate Sodium (Sennosides/Docusate Sodium 1 Tab Tablet) 1 tab PO HS [facility] Last Admin: 09/03/20 21:00 Dose: Not Given Documented by: Sodium Chloride (0.9 % Sodium Chloride 10 Ml Syringe) 10 ml IV Q8 [facility] Last Admin: 09/04/20 13:09 Dose: Not Given Documented by: A/P Assessment and plan (1) Acute UTI: Status: Acute (2) SIRS (systemic inflammatory response syndrome): Status: Acute (3) Essential hypertension: Status: Chronic Comment: Benign (4) Mixed hyperlipidemia: Status: Chronic (5) Myocardial infarction: Status: Chronic (6) Esophageal reflux: Status: Chronic Narrative A/P Narrative: 1. Sepsis associated with UTI: Urine culture grew Proteus Mirabilis. Blood culture no growth to date d/c Vancomycin d/c Meropenem Start Ciprofloxain PO, finish 10-14 days total course of antibiotics therapy Benadryl 50mg PO q6hr PRN itchiness cbc w/ auto diff in the morning to trend WBC Tylenol PRN fever Pending SNF acceptance 2. Anemia, normocytic normochromic: cbc w/ auto diff in the morning to trend H/H. Transfuse pRBC if hemoglobin <7.0, active bleeding, or if patient becomes symptomatic 3. Mixed dyslipidemia: Continue Statin therapy 4. Essential HTN: c/o Coreg 5. h/o CAD: Aspirin Coreg Statin 6. h/o GERD: Continue oral PPI from home regimen Time Spent With Patient Time: Total time spent is greater than 50% in coordination of care (as documented) at patient's floor/unit and/or counseling patient: Total time spent with greater than 50% in coordination of care (as documented) at patient's floor/unit and/or counseling patient:: 25 - 35 minutes QUALITY VTE Deep Vein Thrombosis/Pulmonary Embolism Present on Admission: No
[2020-09-04] MEDS: CIPROFLOXACIN 250 MG TABLET PO SCH (20:27)
[2020-09-04] MEDS: ATORVASTATIN 20 MG TABLET PO SCH (20:27)
[2020-09-04] MEDS: SENNOSIDES/DOCUSATE SODIUM 1 TAB TABLET PO SCH (20:29)
[2020-09-05] MEDS: HYDROcodone/APAP 10/325MG TABLET PO PRN ×3 (04:43→19:32)
[2020-09-05] MEDS: 0.9 % SODIUM CHLORIDE 10 ML SYRINGE IV SCH ×3 (05:57→20:56)
[2020-09-05 07:23] LABS: Basophils # (Auto) 0.04 K/mcL (0.00-0.20); Basophils % (Auto) 0.5 % (0.0-2.0); Eosinophils # (Auto) 0.27 K/mcL (0.00-0.70); Eosinophils % (Auto) 3.1 % (0.0-7.0); Hematocrit 36.2 % (36.0-48.0); Hemoglobin 11.3 g/dL (12.0-15.0); Lymphocytes # (Auto) 2.62 K/mcL (1.50-4.80); Lymphocytes % (Auto) 30.1 % (15.0-49.0); Mean Cell Volume 94.5 fL (80.0-100.0); Mean Corpuscular HGB Conc 31.2 g/dL (31.0-36.0); Mean Platelet Volume 9.3 fL (7.4-10.4); Monocytes # (Auto) 0.96 K/mcL (0.10-0.90); Neutrophils % (Auto) 55.3 % (38.0-78.0); Platelet Count 210 K/mcL (140-440); RBC 3.83 M/mcL (4.00-5.20); Red Cell Distribution Width 14.6 % (11.5-14.5); WBC 8.7 K/mcL (4.5-11.0)
[2020-09-05 07:47] LABS: ALT/SGPT 20 U/L (<40); AST/SGOT 21 U/L (<32); Albumin 3.4 gm/dL (3.2-5.2); Albumin/Globulin Ratio 1.2 (1.0-2.3); Alkaline Phosphatase 90 U/L (39-117); Bilirubin,Direct < 0.2 mg/dL (0-0.3); Bilirubin,Total 0.3 mg/dL (0.1-1.0); Blood Urea Nitrogen 10 mg/dL (8-23); Carbon Dioxide 32 mmol/L (22-30); Chloride 99 mmol/L (96-108); Globulin 2.9 gm/dL (2.2-3.7); Glomerular Filtration Rate 55; Glucose 87 mg/dL (70-105); Lactate Dehydrogenase 245 U/L (135-225); Phosphorous 2.4 mg/dL (2.5-4.5); Triglycerides 182 mg/dL (<150); Uric Acid 6.7 mg/dL (2.5-8.0)
[2020-09-05] MEDS: MULTIVIT,THER IRON,CA,FA & MIN 1 TABLET PO SCH (08:32)
[2020-09-05] MEDS: FUROSEMIDE 20 MG TABLET PO SCH (08:32)
[2020-09-05] MEDS: CIPROFLOXACIN 250 MG TABLET PO SCH ×2 (08:32→20:55)
[2020-09-05] MEDS: CARVEDILOL 12.5 MG TABLET PO SCH ×2 (08:33→17:33)
[2020-09-05] MEDS: POTASSIUM CHLORIDE 10 MEQ TABLET PO SCH ×2 (08:33→17:33)
[2020-09-05] MEDS: FLUoxetine HCL 20 MG CAPSULE PO SCH (08:33)
[2020-09-05] MEDS: OMEPRAZOLE 20 MG CAPSULE PO SCH (08:34)
[2020-09-05] MEDS: ASPIRIN 81 MG TAB.CHEW PO SCH (08:34)
[2020-09-05] MEDS: NEUTRA PHOS 1 PACKET PO SCH ×2 (08:35→20:55)
[2020-09-05] MEDS: DOCUSATE SODIUM 100 MG CAPSULE PO SCH ×2 (08:35→20:55)
[2020-09-05] MEDS: HEPARIN 5,000 UNIT/ML VIAL SQ SCH ×2 (08:35→20:55)
[2020-09-05] MEDS: 0.9 % SODIUM CHLORIDE 250 ML IV SCH ×2 (09:52→20:56)
--- NOTE | 2020-09-05 17:56 | Internal Med Progress Note ---
SUBJECTIVE Subjective Patient information: Note initiated : 09/05/20 at 5:52 pm Service Date, if different from initiated Date: [] Patient: Candy Martinez 75 y/o F admitted on 09/01/20 for Fall, rib pain. Chief Complaint: [Sepsis secondary to UTI. ] Overnight: No more diarrhea. Been on room air. Otherwise there was no other major overnight events. Subjective: c/o abdominal bloating. Denies diarrhea or constipation. Denies nausea or vomiting. Denies fever or chills or sweating. Denies dysuria. Constitutional Vitals: Vital Signs Temp Pulse Resp BP Pulse Ox 36.8 C 111 H 19 127/60 91 09/05/20 16:01 09/05/20 16:22 09/05/20 16:22 09/05/20 16:01 09/05/20 16:22 Period Temp Pulse Resp BP Sys/Conroy Pulse Ox Last 24 Hr 36.6 C-37.6 C 81-111 14-30 97-141/56-70 88-99 Intake and Output 09/05/20 09/05/20 09/05/20 05:59 13:59 21:59 Intake Total 325 Output Total 650 700 650 Balance -325 -700 -650 Intake & Output: Intake & Output 09/05/20 09/05/20 09/05/20 05:59 13:59 21:59 Intake Total 325 Output Total 650 700 650 Balance -325 -700 -650 Intake: Oral 325 Output: Void Amount 650 700 650 Other: Urine Appearance Clear Clear Clear Urine Color Pale Bright Yellow Bright Yellow General appearance: cooperative and no acute distress Head Head exam: Present atraumatic and normocephalic Eye Eye exam: Present EOMI and PERRL ENT ENT exam: Present mucous membranes moist, normal exam and normal external ear exam Neck Neck exam: Present normal inspection; Absent lymphadenopathy, tenderness and thyromegaly Respiratory Respiratory exam: Absent accessory muscle use, respiratory distress and wheezes Cardiovascular Cardiovascular exam: Present normal rate and rhythm; Absent JVD GI/Abdominal GI/Abdominal exam: Present normal bowel sounds, soft and tenderness; Absent organomegaly Extremities Exam Extremities exam: Present full ROM, normal capillary refill and normal inspection; Absent tenderness Neurological Exam Neurological exam: Present alert, CN II-XII intact and oriented X3; Absent motor sensory deficit Psychiatric Psychiatric exam: Present normal affect and normal mood; Absent anxious and depressed Skin Skin exam: Present dry and intact OBJ DATA Labs CBC & Chem 7: 09/05/20 05:30 09/05/20 05:30 Labs: Abnormal Lab Results 09/05/20 09/05/20 09/04/20 05:30 05:30 05:34 RBC 3.83 L Hgb 11.3 L Hct MCHC RDW 14.6 H [place] # (Auto) 0.96 H Carbon Dioxide 32 H Anion Gap 7.0 L 6.0 L Calcium 8.3 L Phosphorus 2.4 L 2.1 L Lactate Dehydrogenase 245 H 226 H Total Protein 5.7 L Triglycerides 182 H 09/04/20 09/03/20 09/03/20 05:34 04:48 04:48 RBC 3.60 L 3.50 L Hgb 10.6 L 10.5 L Hct 34.3 L 33.9 L MCHC 30.9 L RDW 14.7 H 14.8 H [place] # (Auto) Carbon Dioxide Anion Gap Calcium 8.4 L Phosphorus 1.5 L Lactate Dehydrogenase 256 H Total Protein 5.8 L Triglycerides Meds: Medications Acetaminophen (Acetaminophen 325 Mg Tablet) 650 mg PO Q4-6HP PRN; Protocol PRN Reason: Per Pain Protocol/Fever > 101 Last Admin: 09/04/20 14:14 Dose: 650 mg Documented by: Hydrocodone Bitart/Acetaminophen (Hydrocodone/Apap 10/325mg Tablet) 1 tab PO Q4-6HP PRN; Protocol PRN Reason: Pain Last Admin: 09/05/20 08:33 Dose: 1 tab Documented by: Albuterol/Ipratropium (Ipratropium/Albuterol 3 Ml Ampul.Neb) 3 ml NEB Q4HP PRN PRN Reason: Shortness Of Breath Last Admin: 09/03/20 11:31 Dose: 3 ml Documented by: Aspirin (Aspirin 81 Mg Tab.Chew) 81 mg PO DAILY FIDEL Last Admin: 09/05/20 08:34 Dose: 81 mg Documented by: Atorvastatin Calcium (Atorvastatin 20 Mg Tablet) 20 mg PO HS ON LICENSE OF [facility] Last Admin: 09/04/20 20:27 Dose: 20 mg Documented by: Bisacodyl (Bisacodyl 10 Mg Supp.Rect) 10 mg RI Q2-3DAYS PRN PRN Reason: Constipation Carvedilol (Carvedilol 12.5 Mg Tablet) 25 mg PO QAC ON LICENSE OF [facility] Last Admin: 09/05/20 08:33 Dose: 25 mg Documented by: Carvedilol (Carvedilol 12.5 Mg Tablet) 12.5 mg PO QPMCC ON LICENSE OF [facility] Last Admin: 09/05/20 17:33 Dose: 12.5 mg Documented by: Ciprofloxacin (Ciprofloxacin 250 Mg Tablet) 250 mg PO BID ON LICENSE OF [facility]; Protocol Last Admin: 09/05/20 08:32 Dose: 250 mg Documented by: Diphenhydramine HCl (Diphenhydramine 25 Mg Capsule) 50 mg PO Q4HP PRN PRN Reason: Allergic Symptoms Docusate Sodium (Docusate Sodium 100 Mg Capsule) 100 mg PO BID ON LICENSE OF [facility] Last Admin: 09/05/20 08:35 Dose: Not Given Documented by: Fluoxetine HCl (Fluoxetine Hcl 20 Mg Capsule) 20 mg PO QDAY ON LICENSE OF [facility] Last Admin: 09/05/20 08:33 Dose: 20 mg Documented by: Furosemide (Furosemide 20 Mg Tablet) 60 mg PO QDAY ON LICENSE OF [facility] Last Admin: 09/05/20 08:32 Dose: 60 mg Documented by: Heparin Sodium (Porcine) (Heparin 5,000 Unit/Ml Vial) 5,000 unit SQ Q12 ON LICENSE OF [facility] Last Admin: 09/05/20 08:35 Dose: 5,000 unit Documented by: Potassium Chloride 40 meq/ (Dextrose) 520 mls @ 130 mls/hr IV UD PRN PRN Reason: K+ = or < 3.5 Magnesium Sulfate (Magnesium Sulfate) 2 gm in 50 mls @ 50 mls/hr IV UD PRN PRN Reason: MG = or < 1.7 Norepinephrine Bitartrate 8 mg (/ Sodium Chloride) 250 mls @ 18.75 mls/hr IV Q14H PRN; Protocol PRN Reason: Keep MAP >65 Sodium Chloride (Sodium Chloride 0.9%) 250 mls @ 20 mls/hr IV .[id number] ON LICENSE OF [facility] Last Admin: 09/05/20 09:52 Dose: Not Given Documented by: Acetaminophen (Ofirmev) 650 mg in 65 mls @ 130 mls/hr IV Q6HP PRN; Protocol PRN Reason: Per Pain Protocol/Fever > 101 Iron Carb/Multivit/Relampago/Folic Acid (Multivit,Ther Iron,Ca,Fa & Min 1 Tablet) 1 tab PO DAILY ON LICENSE OF [facility] Last Admin: 09/05/20 08:32 Dose: 1 tab Documented by: Loperamide HCl (Loperamide 2 Mg Capsule) 2 mg PO PRN PRN PRN Reason: Diarrhea Last Admin: 09/04/20 19:17 Dose: 2 mg Documented by: Melatonin (Melatonin 3 Mg Tablet) 3 mg PO HSP PRN PRN Reason: Insomnia Nitroglycerin (Nitroglycerin 0.4 Mg Tab.Subl) 0.4 mg SL Q5M PRN PRN Reason: Chest Pain Omeprazole (Omeprazole 20 Mg Capsule) 20 mg PO QAMAC ON LICENSE OF [facility] Last Admin: 09/05/20 08:34 Dose: 20 mg Documented by: Ondansetron HCl (Ondansetron 4 Mg Odt Tablet) 4 mg SL Q4-6HP PRN; Protocol PRN Reason: Nausea And Vomiting Last Admin: 09/05/20 09:15 Dose: 4 mg Documented by: Ondansetron HCl (Ondansetron 4 Mg/2 Ml Vial) 4 mg IV Q4-6HP PRN; Protocol PRN Reason: Nausea And Vomiting Last Admin: 09/03/20 08:46 Dose: 4 mg Documented by: Polyethylene Glycol (Polyethylene Glycol 3350 17 Gm Packet) 17 gm PO DAILYP PRN PRN Reason: Constipation Potassium Chloride (Potassium Chloride 20 Meq Packet) 40 meq PO DAILYP PRN PRN Reason: K+ < 3.5 Last Admin: 09/04/20 08:50 Dose: 40 meq Documented by: Potassium Chloride (Potassium Chloride 10 Meq Tablet) [facility] Last Admin: 09/05/20 17:33 Dose: 20 meq Documented by: Potassium/Phosphorus/Sodium (Neutra Phos 1 Packet) 1 packet PO BID ON LICENSE OF [facility] Last Admin: 09/05/20 08:35 Dose: 1 packet Documented by: Senna/Docusate Sodium (Sennosides/Docusate Sodium 1 Tab Tablet) 1 tab PO HS ON LICENSE OF [facility] Last Admin: 09/04/20 20:29 Dose: Not Given Documented by: Sodium Chloride (0.9 % Sodium Chloride 10 Ml Syringe) 10 ml IV Q8 ON LICENSE OF [facility] Last Admin: 09/05/20 13:44 Dose: 10 ml Documented by: A/P Assessment and plan (1) Acute UTI: Status: Acute (2) SIRS (systemic inflammatory response syndrome): Status: Acute (3) Essential hypertension: Status: Chronic Comment: Benign (4) Mixed hyperlipidemia: Status: Chronic (5) Myocardial infarction: Status: Chronic (6) Esophageal reflux: Status: Chronic Narrative A/P Narrative: 1. Sepsis associated with UTI: Urine culture grew Proteus Mirabilis. Blood culture no growth to date Continue Ciprofloxacin PO, finish 10-14 days total course of antibiotics therapy. Started on 09/04/20 Benadryl 50mg PO q6hr PRN itchiness cbc w/ auto diff in the morning to trend WBC Tylenol PRN fever Pending SNF acceptance 2. Anemia, normocytic normochromic: cbc w/ auto diff in the morning to trend H/H. Transfuse pRBC if hemoglobin <7.0, active bleeding, or if patient becomes symptomatic 3. Mixed dyslipidemia: Continue Statin therapy 4. Essential HTN: c/o Coreg 5. h/o CAD: Aspirin Coreg Statin 6. h/o GERD: Continue oral PPI from home regimen 7. Abdominal bloating: Simethicone PRN abdominal bloating Time Spent With Patient Time: Total time spent is greater than 50% in coordination of care (as documented) at patient's floor/unit and/or counseling patient: QUALITY VTE Deep Vein Thrombosis/Pulmonary Embolism Present on Admission: No
[2020-09-05] MEDS: SIMETHICONE 80 MG TAB.CHEW CHEWED SCH ×2 (18:42→20:55)
[2020-09-05] MEDS: ATORVASTATIN 20 MG TABLET PO SCH (20:55)
[2020-09-05] MEDS: SENNOSIDES/DOCUSATE SODIUM 1 TAB TABLET PO SCH (20:56)
[2020-09-05] MEDS: LOPERAMIDE 2 MG CAPSULE PO PRN (21:07)
[2020-09-06] MEDS: HYDROcodone/APAP 10/325MG TABLET PO PRN ×2 (02:11→10:21)
[2020-09-06] MEDS: 0.9 % SODIUM CHLORIDE 10 ML SYRINGE IV SCH ×2 (05:21→13:29)
[2020-09-06 06:29] LABS: Basophils # (Auto) 0.05 K/mcL (0.00-0.20); Basophils % (Auto) 0.6 % (0.0-2.0); Eosinophils # (Auto) 0.35 K/mcL (0.00-0.70); Eosinophils % (Auto) 3.9 % (0.0-7.0); Hematocrit 37.4 % (36.0-48.0); Hemoglobin 11.6 g/dL (12.0-15.0); Lymphocytes # (Auto) 3.78 K/mcL (1.50-4.80); Lymphocytes % (Auto) 41.8 % (15.0-49.0); Mean Cell Volume 94.4 fL (80.0-100.0); Mean Platelet Volume 9.4 fL (7.4-10.4); Monocytes % (Auto) 11.1 % (1.0-12.0); Neutrophils % (Auto) 42.6 % (38.0-78.0); Platelet Count 216 K/mcL (140-440); RBC 3.96 M/mcL (4.00-5.20); Red Cell Distribution Width 14.4 % (11.5-14.5)
[2020-09-06 07:17] LABS: ALT/SGPT 22 U/L (<40); AST/SGOT 27 U/L (<32); Albumin 3.7 gm/dL (3.2-5.2); Albumin/Globulin Ratio 1.3 (1.0-2.3); Alkaline Phosphatase 98 U/L (39-117); Bilirubin,Direct < 0.2 mg/dL (0-0.3); Bilirubin,Total 0.3 mg/dL (0.1-1.0); Blood Urea Nitrogen 16 mg/dL (8-23); Calcium 9.2 mg/dL (8.6-10.4); Carbon Dioxide 31 mmol/L (22-30); Chloride 98 mmol/L (96-108); Globulin 2.9 gm/dL (2.2-3.7); Glomerular Filtration Rate 49; Glucose 100 mg/dL (70-105); Lactate Dehydrogenase 245 U/L (135-225); Phosphorous 4.2 mg/dL (2.5-4.5); Triglycerides 186 mg/dL (<150); Uric Acid 7.2 mg/dL (2.5-8.0)
[2020-09-06] MEDS: CARVEDILOL 12.5 MG TABLET PO SCH (10:20)
[2020-09-06] MEDS: MULTIVIT,THER IRON,CA,FA & MIN 1 TABLET PO SCH (10:21)
[2020-09-06] MEDS: POTASSIUM CHLORIDE 10 MEQ TABLET PO SCH (10:21)
[2020-09-06] MEDS: FUROSEMIDE 20 MG TABLET PO SCH (10:21)
[2020-09-06] MEDS: NEUTRA PHOS 1 PACKET PO SCH (10:22)
[2020-09-06] MEDS: ASPIRIN 81 MG TAB.CHEW PO SCH (10:22)
[2020-09-06] MEDS: LOPERAMIDE 2 MG CAPSULE PO PRN (10:22)
[2020-09-06] MEDS: OMEPRAZOLE 20 MG CAPSULE PO SCH (10:22)
[2020-09-06] MEDS: HEPARIN 5,000 UNIT/ML VIAL SQ SCH (10:22)
[2020-09-06] MEDS: DOCUSATE SODIUM 100 MG CAPSULE PO SCH (10:22)
[2020-09-06] MEDS: SIMETHICONE 80 MG TAB.CHEW CHEWED SCH ×2 (10:22→12:55)
[2020-09-06] MEDS: CIPROFLOXACIN 250 MG TABLET PO SCH (10:22)
[2020-09-06] MEDS: FLUoxetine HCL 20 MG CAPSULE PO SCH (10:22)
[2020-09-06] MEDS: 0.9 % SODIUM CHLORIDE 250 ML IV SCH (10:23)
--- NOTE | 2020-09-06 14:27 | Discharge Summary ---
Discharge Provider Provider Patient information: Note initiated : 09/06/20 at 2:22 pm Service Date, if different from initiated Date: [] Patient: Candy Martinez 75 y/o F admitted on 09/01/20 for Fall, rib pain. Chief Complaint: [Sepsis with urinary tract infection ] Date of admission: 09/01/20 17:17 Discharge date: 09/06/20 Primary care physician: Joanne Gould Consults: 09/01/20 Consult to Physician [CONS] Stat Comment: Consulting Provider: Ramses Sims Reason For Exam: Physician to Consult Discharge Meds Discharge Medications Home Medications atorvastatin 20 mg PO HS 06/28/15 [History Confirmed 09/01/20 Last Taken 07/07/15] hydrocodone-acetaminophen 1 tab PO Q4-6HP PRN 06/28/15 [History Confirmed 09/01/20 Last Taken 07/07/15] aspirin 81 mg PO DAILY 07/09/15 [History Confirmed 09/01/20 Last Taken 07/08/15 09:00 81 mg] carvedilol 12.5 mg tablet See Rx Instructions .ROUTE .COMPLEX 07/17/15 [History Confirmed 09/01/20 Last Taken Unknown] fluoxetine 20 mg capsule 20 mg PO QDAY 07/17/15 [History Confirmed 09/01/20 Last Taken Unknown] multivitamin 1 tab-cap PO QDAY 07/17/15 [History Confirmed 09/01/20 Last Taken Unknown] nitroglycerin 0.4 mg sublingual tablet 0.4 mg SUBLINGUAL Q5-15MIN PRN 07/17/15 [History Confirmed 09/01/20 Last Taken Unknown] ondansetron HCl 4 mg tablet 4 mg PO QDAY PRN tab 05/21/17 [History Confirmed 09/01/20 Last Taken Unknown] cholecalciferol (vitamin D3) See Rx Instructions .ROUTE .COMPLEX 09/06/18 [History Confirmed 09/01/20 Last Taken Unknown] omeprazole 20 mg capsule,delayed release 20 mg PO QDAY 09/06/18 [History Confirmed 09/01/20 Last Taken Unknown] furosemide 20 mg tablet 60 mg PO QDAY tab 02/08/19 [History Confirmed 09/01/20 Last Taken Unknown] potassium chloride 10 mEq tablet,extended release 20 meq PO BID tab 11/03/19 [History Confirmed 09/01/20 Last Taken Unknown] ciprofloxacin HCl 250 mg PO BID 7 Days #14 tab 09/06/20 [Rx Last Taken Unknown] COURSE Hospital Course Hospital course: Patient was admitted on 09/01/20 for sepsis with urinary tract infection. After blood and urinary culture were collected, she was being started on broad spectrum IV antibiotics as well as IV fluid infusion for fluid replacement. Blood culture remained no growth to date whereas urine culture grew Proteus Mirabilis. By 09/06/20, she had been afebrile for more than 24 hours, leukocytosis resolved, and reached clinical stability. As such, the decision was made to discharge her to SNF with Ciprofloxacin sent. 2 week PCP follow up appointment made for her. All questions were answered prior to patient being physically discharged. Discharge diagnosis: Sepsis with UTI Time Spent with Patient Time attestation: Total time spent providing and/or coordinating discharge services: Time spent: Less than 30 minutes EXAM Constitutional Vitals: Temp Pulse Resp BP Pulse Ox 36.2 C 105 H 22 135/64 93 09/06/20 12:00 09/06/20 12:00 09/06/20 12:00 09/06/20 12:00 09/06/20 12:00 Discharge Data Data Completed and Pending Labs on day of discharge: Labs from last 24 hours 09/06/20 09/06/20 05:07 05:07 WBC 9.0 RBC 3.96 L Hgb 11.6 L Hct 37.4 MCV 94.4 MCH 29.3 MCHC 31.0 RDW 14.4 Plt Count 216 MPV 9.4 Neut % (Auto) 42.6 Lymph % (Auto) 41.8 [place] % (Auto) 11.1 Eos % (Auto) 3.9 Baso % (Auto) 0.6 Lymph # (Auto) 3.78 [place] # (Auto) 1.00 H Eos # (Auto) 0.35 Baso # (Auto) 0.05 Absolute Neutrophils 3.86 Sodium 136 Potassium 4.2 Chloride 98 Carbon Dioxide 31 H Anion Gap 7.0 L BUN 16 Creatinine 1.1 GFR Calculation 49 Glucose 100 Uric Acid 7.2 Calcium 9.2 Phosphorus 4.2 Magnesium 2.0 Total Bilirubin 0.3 Direct Bilirubin < 0.2 GGT 23 AST 27 ALT 22 Alkaline Phosphatase 98 Lactate Dehydrogenase 245 H Total Protein 6.6 Albumin 3.7 Globulin 2.9 Albumin/Globulin Ratio 1.3 Triglycerides 186 H Preliminary micro results at discharge 09/01/20 16:10 Blood Culture - Preliminary Blood 09/01/20 16:00 Blood Culture - Preliminary Blood Discharge Plan Patient/Caregiver Discharge Instructions Activity: as per physical therapy Diet: Regular Diet Instructions: Fall Prevention for Older Adults (ED), Urinary Tract Infection in Older Adults (ED) Activity Restrictions/Additional Instructions: Discharge to SNF 2 week PCP follow up appointment Prescriptions: New ciprofloxacin HCl 250 mg Tablet 250 mg PO BID 7 Days Qty: 14 RF: 0 Continued fluoxetine [Prozac] 20 mg capsule 20 mg PO QDAY RF: 0 multivitamin tablet 1 tab-cap PO QDAY RF: 0 nitroglycerin [Nitrostat] 0.4 mg tablet, sublingual 0.4 mg SUBLINGUAL Q5-15MIN PRN (Reason: Chest Pain) RF: 0 carvedilol 12.5 mg tablet See Rx Instructions .ROUTE .COMPLEX RF: 0 ondansetron HCl 4 mg tablet 4 mg PO QDAY PRN (Reason: Nausea) RF: 0 cholecalciferol (vitamin D3) See Rx Instructions .ROUTE .COMPLEX RF: 0 omeprazole 20 mg capsule,delayed release(DR/EC) 20 mg PO QDAY RF: 0 furosemide 20 mg tablet 60 mg PO QDAY RF: 0 potassium chloride 10 mEq tablet extended release 20 meq PO BID RF: 0 atorvastatin 20 MG tablet 20 mg PO HS RF: 0 hydrocodone-acetaminophen 1 TAB tablet 1 tab PO Q4-6HP PRN (Reason: Pain) RF: 0 aspirin 81 MG tablet,chewable 81 mg PO DAILY RF: 0 Other Ambulatory Orders: OT Discharge Order (Routine) Facility: [facility] - Location: [facility] Ordered By: Michael Gusman Physical Therapy at Discharge - General (Routine) Facility: [facility] - Location: [facility] Ordered By: Michael Gusman Follow Up Plan Follow up with: Joanne Gould MD [Primary Care Provider] - Patient Disposition: Xfer SNF Rehab Potential: Good Overall status at discharge: patient is back to baseline Discharge Orders: Discharge Order (Routine); Ordered 09/06/20 Ordered By: Michael Gusman QUALITY VTE Deep Vein Thrombosis/Pulmonary Embolism Present on Admission: No
== END 2020-09-06 15:25 | DRG 871 ==
LOC: ED 08:57 → ICU 17:15
PROVIDERS: ADMIT Internal Medicine; ATTEND Internal Medicine

== ENCOUNTER 2020-10-10 04:18 | Inpatient (IN) ==
[2020-10-10] MEDS ORDERED: 0.9 % SODIUM CHLORIDE 1,000 ML IV ONE (04:39)
[2020-10-10] MEDS ORDERED: MEROPENEM 0.5 GM in 0.9 % SODIUM CHLORIDE 50 ML IV STA (04:39)
[2020-10-10] MEDS ORDERED: VANCOMYCIN 1,000 MG in 0.9 % SODIUM CHLORIDE 250 ML IV ONE (04:39)
[2020-10-10] MEDS ORDERED: 0.9 % SODIUM CHLORIDE 500 ML IV ONE ×2 (04:39→10:43)
[2020-10-10] MEDS ORDERED: 0.9 % SODIUM CHLORIDE 2,000 ML IV ONE (04:40)
[2020-10-10] MEDS ORDERED: ACETAMINOPHEN 325 MG TABLET PO ONE (04:43)
[2020-10-10] MEDS ORDERED: CIPROFLOXACIN 400 MG/200 ML BAG IV ONE (04:44)
--- NOTE | 2020-10-10 04:53 | Emergency Department Note ---
HPI General Chief complaint: Urogenital-Female Stated complaint: UTI/fever Time Seen by Provider: 10/10/20 04:33 Source: EMS Mode of arrival: EMS History of Present Illness HPI Narrative: Narrative: 75-year-old female presents the emergency department via EMS for generalized weakness fever as well as urinary tract infection-like symptoms. She was seen recent by her primary care doctor yesterday she was diagnosed with a urinary tract infection and sent home with Macrobid. Said she started taking it yesterday. Said tonight she started to feel worse so they called EMS to take her here she felt very weak and short of breath. She is n ormally not on oxygen they did put her on 4 L to get her above 90% as I said she recently was in the ER this is very similar to a similar episode she had 1 month ago where she was septic need to be admitted and then actually spent a few weeks [facility] says she recently did get out as she was doing well but seems a just came back. Said this is the similar symptoms where she had last time. She is having generalized abdominal pain and just feels weak and tired no localized abdominal pain anywhere else is about 2 out of 10 dull throbbing ache all across her abdomen. It does burn to urinate as well. She said she is not short of breath she is normally not on oxygen does feel like she cannot breathe unless the oxygen is on there. Related Data Home Medications Medication Instructions Recorded Confirmed atorvastatin 20 mg PO HS 06/28/15 10/10/20 hydrocodone-acetaminophen 1 tab PO Q4-6HP PRN 06/28/15 10/10/20 fluoxetine 20 mg capsule 20 mg PO QDAY 07/17/15 10/10/20 omeprazole 20 mg capsule,delayed 20 mg PO QDAY 09/06/18 10/10/20 release furosemide 20 mg tablet 60 mg PO QDAY tab 02/08/19 10/10/20 potassium chloride 10 mEq 20 meq PO BID tab 11/03/19 10/10/20 tablet,extended release calcitriol 0.25 mcg PO 3XW 10/10/20 10/10/20 carvedilol 25 mg PO BID 10/10/20 10/10/20 metoclopramide HCl 10 mg PO BID PRN 10/10/20 10/10/20 nitrofurantoin monohyd/m-cryst 100 mg PO BID 10/10/20 10/10/20 prednisone 5 mg PO DAILY 10/10/20 10/10/20 Allergies Allergy/AdvReac Type Severity Reaction Status Date / Time Amoxicillin [AMOXICILLIN] Allergy Intermediate HIVES Verified 10/10/20 04:28 Cephalosporins Allergy Mild Hives Verified 10/10/20 09:23 ciprofloxacin [From Cipro] AdvReac Mild Itching Verified 10/10/20 04:28 Sulfa (Sulfonamide AdvReac Mild VOMIT Verified 10/10/20 04:28 Antibiotics) [SULFA (SULFONAMIDE ANTIBIOTICS)] Review of Systems ROS ROS Narrative: Narrative: All systems ED: reviewed and negative except as stated. PFSH Narrative Patient History Narrative: Narrative: Medical/Surgical/Family History All Active Problems (Updated 10/10/20 @ 06:35 by Rock Muro DO) Anemia due to stage 3b chronic kidney disease (Chronic) Acute UTI (Acute) Fall (Acute) Blunt chest trauma (Acute) Blunt abdominal trauma (Acute) Hypoxia (Acute) SIRS (systemic inflammatory response syndrome) (Acute) Secondary hyperparathyroidism of renal origin (Chronic) Localized edema due to fluid overload (Chronic) Gastritis (Acute) Cystitis (Acute) Yeast infection of the vagina (Acute) Acute sinusitis (Acute) Sepsis (Acute) Pneumonia (Acute) Laceration of left leg (Acute) Urinary hesitancy (Chronic) Chronic kidney disease (CKD) stage G3b/A2, moderately decreased glomerular filtration rate (GFR) between 30-44 mL/min/1.73 square meter and albuminuria creatinine ratio between 30-299 mg/g (Chronic) Polyarthralgia (Chronic) Leg pain (Chronic) Low back pain (Chronic) Osteoarthritis (Chronic) Back Pain (Chronic) Pain in 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 (Chronic) 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) Osteoporosis (Chronic) Long-term current use of steroids (Chronic) Fibromyalgia (Chronic) Other chest pain (Chronic) Lupus arthritis (Chronic) Sciatica (Chronic) Lumbar disc disease (Chronic) Thoracic outlet syndrome (Chronic) Eczema (Chronic) Irritable bowel (Chronic) Mixed hyperlipidemia (Chronic) Disturbance, sleep (Chronic) Migraine (Chronic) Depression (Chronic) Bilateral plantar fasciitis (Chronic) Trochanteric bursitis (Chronic) Spondylosis, lumbosacral (Chronic) Pelvic pain (Chronic) Autonomic neuropathy (Chronic) Neck pain (Chronic) Arthritis (Chronic) Essential hypertension (Chronic) Malaise and fatigue (Chronic) Degenerative disc disease, lumbar (Chronic) Anemia (Chronic) Esophageal reflux (Chronic) Neuritis (Chronic) Plantar fasciitis of left foot (Chronic) 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) Fatigue (Chronic) Abnormal stress echocardiogram (Chronic) Myocardial infarction (Chronic) Edema (Chronic) Medical History Abnormal stress echocardiogram Anemia Arthritis Generalized Autonomic neuropathy Bilateral plantar fasciitis Chronic renal disease, stage II Cystitis Degenerative disc disease, lumbar With myelopathy Depression Disturbance, sleep NOS Eczema Edema Esophageal reflux Essential hypertension Benign Fatigue Fibromyalgia Gastritis Hypokalemia Hypokalemia Hypotension Iatrogenic [place]'s syndrome Irritable bowel Leg pain Long-term current use of steroids Low back pain Lumbar disc disease Lupus arthritis Malaise and fatigue Migraine Mixed hyperlipidemia Myocardial infarction Neck pain Neuritis Osteoarthritis Other chest pain Pelvic pain Chronic Plantar fasciitis of left foot Polyarthralgia Sciatica Septic shock SLE (systemic lupus erythematosus) Spondylosis, lumbosacral Thoracic outlet syndrome Trochanteric bursitis Left UTI (urinary tract infection) Yeast infection of the vagina Surgical History Hx of appendectomy Incidental with hysterectomy Hx of cholecystectomy Hx of hernia repair Hx of percutaneous transluminal coronary angioplasty Hx of shoulder surgery Left shoulder repair Hx of tubal ligation S/P partial hysterectomy Family History Mother , Bed ridden Pulmonary edema Fracture of hip Carcinoma of breast Hypertension Cerebrovascular accident (CVA) Deep vein thrombosis (DVT) Father , Age 68 Myocardial Infarction Cerebrovascular accident (CVA) Sisters Myocardial Infarction Alzheimer's disease Crohn's disease Brothers Cerebrovascular accident (CVA) Son Ulcerative colitis Hemorrhagic stroke Social History Smoking Status: Former smoker Alcohol Intake Frequency: does not drink Substance Use: does not use Exam Narrative Narrative: Narrative: Vital signs noted General: Awake. Alert. No distress. Seems dry on exam with dried mucus on edges of mouth as well as on eyes. Skin: Warm. Dry. No rash. HEENT: NCAT. PERRL. EOMI. No conjunctivitis. No nystagmus. No pharyngitis. Membranes moist. Neck: No PTP. Good ROM. No meningeal signs. No stridor. No thyromegaly. No JVD. Cardiovascular: Tachycardic and regular. No murmur. No rubs. No gallops. Respiratory: No respiratory distress. Mild crackles are heard in the bases otherwise normal. Gastrointestinal: Abdomen soft. generalized abdominal tenderness not localized to a certain area on exam or palpation. No distention. Normal bowel sounds. No palpable organomegaly or masses. Back: No deformity. No CVAT. Musculoskeletal: No tenderness. No swelling. No erythema. No edema. Good peripheral pulses x 4 Lymphatic: No palpable adenopathy. Neurological: No focal neurological deficits observed. Course Vital Signs Vital signs: Vital Signs Temperature 102.2 F H 10/10/20 04:19 Pulse Rate 118 H 10/10/20 04:19 Respiratory Rate 32 H 10/10/20 04:19 Blood Pressure 153/75 10/10/20 04:19 Pulse Oximetry (%) 99 10/10/20 04:19 Temperature 97.4 F 10/10/20 16:00 Pulse Rate 96 H 10/10/20 16:00 Respiratory Rate 22 10/10/20 16:00 Blood Pressure 95/55 10/10/20 16:00 Pulse Oximetry (%) 94 10/10/20 16:00 [facility] MDM Narrative Medical decision making narrative: Narrative: Patient does look to be dehydrated. Patient does meet SIRS and sepsis criteria. Based on ideal body weight of 45 kg the 30 mL/kg bolus of IV fluids was ordered which comes out to be 1350 mL of normal saline. This was ordered. Patient also had lactate, VBG CBC CMP ordered as well. Will order a chest x-ray and CT to rule out any other acute etiologies as well as urinalysis which is the most likely etiology of patient's symptoms. Blood cultures were also ordered prior to starting antibiotics. Labs are still pending at this time. Patient is presenting very similar to previous episode so was able to pull up previous urine cultures which grew out Proteus s Mirabella's and was susceptible to the fluoroquinolones. Patient unfortunately is allergic to penicillins as well as sulfas and all cephalosporins we are limited based on antibiotics. Based on previous review of notes I chose to do ciprofloxacin as that is what she was on last time and seem to do so and gave her IV ciprofloxacin as well as vancomycin to cover broad-spectrum the only other option was meropenem I think this is a little aggressive at this time and can always be increased later. Patient currently is not in septic shock blood pressures are stable. Patient will need to be admitted for further evaluation as well as for IV antibiotic treatment. Due to the elevation in the procalcitonin normal urinalysis I think is most likely is a pneumonia as well as with hypoxia. Patient will be admitted to the hospitalist service. Patient was admitted to Dr. Low who agreed to admit the patient. Patient admitted in fair condition Lab Data Result diagrams: 10/10/20 04:45 10/10/20 04:45 Labs: Lab Results 10/10/20 10/10/20 10/10/20 Range/Units 04:45 04:45 04:45 WBC 14.3 H (4.5-11.0) K/mcL RBC 4.03 (4.00-5.20) M/mcL Hgb 12.0 (12.0-15.0) g/dL Hct 38.4 (36.0-48.0) % MCV 95.3 (80.0-100.0) fL MCH 29.8 (26.0-34.0) pg MCHC 31.3 (31.0-36.0) g/dL RDW 13.7 (11.5-14.5) % Plt Count 210 (140-440) K/mcL MPV 9.4 (7.4-10.4) fL Neut % (Auto) 91.7 H (38.0-78.0) % Lymph % (Auto) 5.2 L (15.0-49.0) % [place] % (Auto) 1.3 (1.0-12.0) % Eos % (Auto) 1.6 (0.0-7.0) % Baso % (Auto) 0.2 (0.0-2.0) % Lymph # (Auto) 0.75 L (1.50-4.80) K/mcL [place] # (Auto) 0.18 (0.10-0.90) K/mcL Eos # (Auto) 0.23 (0.00-0.70) K/mcL Baso # (Auto) 0.03 (0.00-0.20) K/mcL Seg Neutrophils % (38-78) % Band Neutrophils % (0-10) % Lymphocytes % (15-49) % Monocytes % (Manual) (1-12) % Absolute Neutrophils 13.12 H (1.80-8.00) K/mcL Reactive Lymphocytes (0-2) % Platelet Estimate (Normal) RBC Morphology (Normal) D-Dimer ABG Methemoglobin (0.4-1.5) % VBG pH U VBG pCO2 mmHg VBG pO2 mmHg VBG HCO3 mmol/L VBG Total CO2 mmol/L VBG O2 Saturation % VBG Base Excess (-2-3) VBG Lactic Acid 1.9 (0.5-2.0) mmol/L Carboxyhemoglobin (0.0-1.5) % THgb Total Hemoglobin (13.5-16.5) gm/Dl Sodium 139 (133-145) mmol/L Potassium 3.5 (3.3-5.1) mmol/L Chloride 102 (96-108) mmol/L Carbon Dioxide 25 (22-30) mmol/L Anion Gap 12.0 (8.0-16.0) BUN 22 (8-23) mg/dL Creatinine 1.1 (0.6-1.1) mg/dL GFR Calculation 49 Glucose 105 (70-105) mg/dL Calcium 8.1 L (8.6-10.4) mg/dL Total Bilirubin 0.5 (0.1-1.0) mg/dL AST 32 H (<32) U/L ALT 33 (<40) U/L Alkaline Phosphatase 82 (39-117) U/L C-Reactive Protein (0.03-0.80) mg/dL Total Protein 6.1 (5.9-8.4) gm/dL Albumin 3.9 (3.2-5.2) gm/dL Globulin 2.2 (2.2-3.7) gm/dL Albumin/Globulin Ratio 1.8 (1.0-2.3) Procalcitonin (<0.10) ng/mL Urine Color Urine Appearance (Clear) Urine pH (5.0-9.0) Ur Specific Tolar (1.000-1.035) Urine Protein (Negative) mg/dL Urine Glucose (UA) (Negative) mg/dL Urine Ketones (Negative) mg/dL Urine Occult Blood (Negative) mg/dL Urine Nitrate (Negative) Urine Bilirubin (Negative) mg/dL Urine Urobilinogen mg/dL Ur Leukocyte Esterase (Negative) /ug Ur Culture Indicated? Ur Strep pneumoniae Ag (Negative) 10/10/20 10/10/20 10/10/20 Range/Units 04:45 04:45 04:45 WBC (4.5-11.0) K/mcL RBC (4.00-5.20) M/mcL Hgb (12.0-15.0) g/dL Hct (36.0-48.0) % MCV (80.0-100.0) fL MCH (26.0-34.0) pg MCHC (31.0-36.0) g/dL RDW (11.5-14.5) % Plt Count (140-440) K/mcL MPV (7.4-10.4) fL Neut % (Auto) (38.0-78.0) % Lymph % (Auto) (15.0-49.0) % [place] % (Auto) (1.0-12.0) % Eos % (Auto) (0.0-7.0) % Baso % (Auto) (0.0-2.0) % Lymph # (Auto) (1.50-4.80) K/mcL [place] # (Auto) (0.10-0.90) K/mcL Eos # (Auto) (0.00-0.70) K/mcL Baso # (Auto) (0.00-0.20) K/mcL Seg Neutrophils % 81 H (38-78) % Band Neutrophils % 11 H (0-10) % Lymphocytes % 5 L (15-49) % Monocytes % (Manual) 1 (1-12) % Absolute Neutrophils (1.80-8.00) K/mcL Reactive Lymphocytes 2 (0-2) % Platelet Estimate Normal (Normal) RBC Morphology Normal (Normal) D-Dimer TNP ABG Methemoglobin (0.4-1.5) % VBG pH U VBG pCO2 mmHg VBG pO2 mmHg VBG HCO3 mmol/L VBG Total CO2 mmol/L VBG O2 Saturation % VBG Base Excess (-2-3) VBG Lactic Acid (0.5-2.0) mmol/L Carboxyhemoglobin (0.0-1.5) % THgb Total Hemoglobin (13.5-16.5) gm/Dl Sodium (133-145) mmol/L Potassium (3.3-5.1) mmol/L Chloride (96-108) mmol/L Carbon Dioxide (22-30) mmol/L Anion Gap (8.0-16.0) BUN (8-23) mg/dL Creatinine (0.6-1.1) mg/dL GFR Calculation Glucose (70-105) mg/dL Calcium (8.6-10.4) mg/dL Total Bilirubin (0.1-1.0) mg/dL AST (<32) U/L ALT (<40) U/L Alkaline Phosphatase (39-117) U/L C-Reactive Protein (0.03-0.80) mg/dL Total Protein (5.9-8.4) gm/dL Albumin (3.2-5.2) gm/dL Globulin (2.2-3.7) gm/dL Albumin/Globulin Ratio (1.0-2.3) Procalcitonin 1.08 H (<0.10) ng/mL Urine Color Urine Appearance (Clear) Urine pH (5.0-9.0) Ur Specific Tolar (1.000-1.035) Urine Protein (Negative) mg/dL Urine Glucose (UA) (Negative) mg/dL Urine Ketones (Negative) mg/dL Urine Occult Blood (Negative) mg/dL Urine Nitrate (Negative) Urine Bilirubin (Negative) mg/dL Urine Urobilinogen mg/dL Ur Leukocyte Esterase (Negative) /ug Ur Culture Indicated? Ur Strep pneumoniae Ag (Negative) 10/10/20 10/10/20 10/10/20 Range/Units 04:45 05:35 05:35 WBC (4.5-11.0) K/mcL RBC (4.00-5.20) M/mcL Hgb (12.0-15.0) g/dL Hct (36.0-48.0) % MCV (80.0-100.0) fL MCH (26.0-34.0) pg MCHC (31.0-36.0) g/dL RDW (11.5-14.5) % Plt Count (140-440) K/mcL MPV (7.4-10.4) fL Neut % (Auto) (38.0-78.0) % Lymph % (Auto) (15.0-49.0) % [place] % (Auto) (1.0-12.0) % Eos % (Auto) (0.0-7.0) % Baso % (Auto) (0.0-2.0) % Lymph # (Auto) (1.50-4.80) K/mcL [place] # (Auto) (0.10-0.90) K/mcL Eos # (Auto) (0.00-0.70) K/mcL Baso # (Auto) (0.00-0.20) K/mcL Seg Neutrophils % (38-78) % Band Neutrophils % (0-10) % Lymphocytes % (15-49) % Monocytes % (Manual) (1-12) % Absolute Neutrophils (1.80-8.00) K/mcL Reactive Lymphocytes (0-2) % Platelet Estimate (Normal) RBC Morphology (Normal) D-Dimer ABG Methemoglobin (0.4-1.5) % VBG pH U VBG pCO2 mmHg VBG pO2 mmHg VBG HCO3 mmol/L VBG Total CO2 mmol/L VBG O2 Saturation % VBG Base Excess (-2-3) VBG Lactic Acid (0.5-2.0) mmol/L Carboxyhemoglobin (0.0-1.5) % THgb Total Hemoglobin (13.5-16.5) gm/Dl Sodium (133-145) mmol/L Potassium (3.3-5.1) mmol/L Chloride (96-108) mmol/L Carbon Dioxide (22-30) mmol/L Anion Gap (8.0-16.0) BUN (8-23) mg/dL Creatinine (0.6-1.1) mg/dL GFR Calculation Glucose (70-105) mg/dL Calcium (8.6-10.4) mg/dL Total Bilirubin (0.1-1.0) mg/dL AST (<32) U/L ALT (<40) U/L Alkaline Phosphatase (39-117) U/L C-Reactive Protein 1.00 H (0.03-0.80) mg/dL Total Protein (5.9-8.4) gm/dL Albumin (3.2-5.2) gm/dL Globulin (2.2-3.7) gm/dL Albumin/Globulin Ratio (1.0-2.3) Procalcitonin (<0.10) ng/mL Urine Color Yellow Urine Appearance Clear (Clear) Urine pH 7.0 (5.0-9.0) Ur Specific T[place] 1.010 (1.000-1.035) Urine Protein Negative (Negative) mg/dL Urine Glucose (UA) Negative (Negative) mg/dL Urine Ketones Negative (Negative) mg/dL Urine Occult Blood Negative (Negative) mg/dL Urine Nitrate Negative (Negative) Urine Bilirubin Negative (Negative) mg/dL Urine Urobilinogen Negative mg/dL Ur Leukocyte Esterase Negative (Negative) /ug Ur Culture Indicated? No Ur Strep pneumoniae Ag Negative (Negative) 10/10/20 10/10/20 Range/Units 05:36 08:16 WBC (4.5-11.0) K/mcL RBC (4.00-5.20) M/mcL Hgb (12.0-15.0) g/dL Hct (36.0-48.0) % MCV (80.0-100.0) fL MCH (26.0-34.0) pg MCHC (31.0-36.0) g/dL RDW (11.5-14.5) % Plt Count (140-440) K/mcL MPV (7.4-10.4) fL Neut % (Auto) (38.0-78.0) % Lymph % (Auto) (15.0-49.0) % [place] % (Auto) (1.0-12.0) % Eos % (Auto) (0.0-7.0) % Baso % (Auto) (0.0-2.0) % Lymph # (Auto) (1.50-4.80) K/mcL [place] # (Auto) (0.10-0.90) K/mcL Eos # (Auto) (0.00-0.70) K/mcL Baso # (Auto) (0.00-0.20) K/mcL Seg Neutrophils % (38-78) % Band Neutrophils % (0-10) % Lymphocytes % (15-49) % Monocytes % (Manual) (1-12) % Absolute Neutrophils (1.80-8.00) K/mcL Reactive Lymphocytes (0-2) % Platelet Estimate (Normal) RBC Morphology (Normal) D-Dimer 0.87 H ABG Methemoglobin 0 L (0.4-1.5) % VBG pH 7.28 U VBG pCO2 53.2 mmHg VBG pO2 46.5 mmHg VBG HCO3 24.7 mmol/L VBG Total CO2 26.3 mmol/L VBG O2 Saturation 75.3 % VBG Base Excess -2 (-2-3) VBG Lactic Acid (0.5-2.0) mmol/L Carboxyhemoglobin 3.4 H (0.0-1.5) % THgb Total Hemoglobin 11.2 L (13.5-16.5) gm/Dl Sodium (133-145) mmol/L Potassium (3.3-5.1) mmol/L Chloride (96-108) mmol/L Carbon Dioxide (22-30) mmol/L Anion Gap (8.0-16.0) BUN (8-23) mg/dL Creatinine (0.6-1.1) mg/dL GFR Calculation Glucose (70-105) mg/dL Calcium (8.6-10.4) mg/dL Total Bilirubin (0.1-1.0) mg/dL AST (<32) U/L ALT (<40) U/L Alkaline Phosphatase (39-117) U/L C-Reactive Protein (0.03-0.80) mg/dL Total Protein (5.9-8.4) gm/dL Albumin (3.2-5.2) gm/dL Globulin (2.2-3.7) gm/dL Albumin/Globulin Ratio (1.0-2.3) Procalcitonin (<0.10) ng/mL Urine Color Urine Appearance (Clear) Urine pH (5.0-9.0) Ur Specific Tolar (1.000-1.035) Urine Protein (Negative) mg/dL Urine Glucose (UA) (Negative) mg/dL Urine Ketones (Negative) mg/dL Urine Occult Blood (Negative) mg/dL Urine Nitrate (Negative) Urine Bilirubin (Negative) mg/dL Urine Urobilinogen mg/dL Ur Leukocyte Esterase (Negative) /ug Ur Culture Indicated? Ur Strep pneumoniae Ag (Negative) ED POC Tests ED POC Tests: ED - SARS Antigen Negative Discharge Plan Patient/Caregiver Discharge Instructions Pt seen by LINING PRINTER/PA only: No Clinical Impression: Sepsis Qualifiers: Sepsis type: sepsis due to unspecified organism Sepsis acute organ dysfunction status: unspecified Qualified Code(s): A41.9 - Sepsis, unspecified organism Patient Disposition: Xfer As Inpt ([facility]) Condition: Undetermined Discharge Date/Time: 10/10/20 09:53
--- NOTE | 2020-10-10 06:04 | XRay Report ---
INDICATION: sepsis TECHNIQUE: AP portable semiupright chest x-ray COMPARISON: Previous chest x-ray dated 09/03/2020 FINDINGS: Lungs: Interstitial markings remain prominent, unchanged. No focal infiltrate. No interval change. Heart, vascular:No significant cardiomegaly. Pulmonary vascularity is normal. No pulmonary edema or pulmonary congestion Mediastinum, nila:No mediastinal widening. No hilar mass Pleura:No pleural fluid. No pleural-based mass or calcification Skeletal:Negative. IMPRESSION: 1. No acute or focal abnormality 2. No interval change since 09/03/2020 Interpreted and Authenticated by: Bucky Saldana 10/10/20
[2020-10-10 06:09] LABS: ABG Methemoglobin 0 % (0.4-1.5); Total Hemoglobin 11.2 gm/Dl (13.5-16.5); VBG Base Excess -2 (-2-3); VBG HCO3 24.7 mmol/L; VBG Oxygen Saturation 75.3 %; VBG PCO2 53.2 mmHg; VBG PH 7.28 U; VBG PO2 46.5 mmHg; VBG Total CO2 26.3 mmol/L
[2020-10-10 06:21] LABS: Appearance,Urine CLEAR (Clear); Bilirubin,Urine Negative (Negative); Color,Urine YELLOW; Culture Indicated,Urine No; Glucose,Urine (UA) Negative (Negative); Ketones,Urine Negative (Negative); Leukocyte Esterase,Urine Negative /ug (Negative); Nitrate,Urine Negative (Negative); Protein,Urine Negative (Negative); Urine Blood Negative (Negative); Urobilinogen,Urine Negative
[2020-10-10 06:21] LABS: Basophils # (Auto) 0.03 K/mcL (0.00-0.20); Basophils % (Auto) 0.2 % (0.0-2.0); Eosinophils # (Auto) 0.23 K/mcL (0.00-0.70); Eosinophils % (Auto) 1.6 % (0.0-7.0); Hematocrit 38.4 % (36.0-48.0); Lymphocytes # (Auto) 0.75 K/mcL (1.50-4.80); Lymphocytes % (Auto) 5.2 % (15.0-49.0); Mean Cell Volume 95.3 fL (80.0-100.0); Mean Corpuscular HGB Conc 31.3 g/dL (31.0-36.0); Mean Platelet Volume 9.4 fL (7.4-10.4); Monocytes # (Auto) 0.18 K/mcL (0.10-0.90); Monocytes % (Auto) 1.3 % (1.0-12.0); Neutrophils % (Auto) 91.7 % (38.0-78.0); Platelet Count 210 K/mcL (140-440); RBC 4.03 M/mcL (4.00-5.20); Red Cell Distribution Width 13.7 % (11.5-14.5); WBC 14.3 K/mcL (4.5-11.0)
[2020-10-10 06:43] LABS: ALT/SGPT 33 U/L (<40); AST/SGOT 32 U/L (<32); Albumin 3.9 gm/dL (3.2-5.2); Albumin/Globulin Ratio 1.8 (1.0-2.3); Alkaline Phosphatase 82 U/L (39-117); Bilirubin,Total 0.5 mg/dL (0.1-1.0); Blood Urea Nitrogen 22 mg/dL (8-23); Calcium 8.1 mg/dL (8.6-10.4); Carbon Dioxide 25 mmol/L (22-30); Chloride 102 mmol/L (96-108); Globulin 2.2 gm/dL (2.2-3.7); Glomerular Filtration Rate 49; Glucose 105 mg/dL (70-105)
--- NOTE | 2020-10-10 06:46 | Cat Scan Report ---
INDICATION: generalized abd pain with UTI COMPARISON: Previous chest abdomen pelvis CT scan dated 09/01/2020 TECHNIQUE: Axial images were obtained through the abdomen and pelvis. Sagittally and coronally reformatted images. Intravenous contrast material was not administered FINDINGS: Lung bases:Lung bases are abnormal. There is reticular abnormality. There is bronchial wall thickening consistent with bronchitis. There is no honeycombing. No pulmonary parenchymal consolidation. There is no pleural fluid. Appearance is essentially unchanged since 09/01/2020. There is a small hiatal hernia Liver:Negative to the limits of noncontrast enhanced examination. Liver contour is smooth without evidence for cirrhosis Gallbladder, bilary:Previous cholecystectomy. No dilated bile ducts Spleen:No splenomegaly Pancreas:No pancreatic mass. No peripancreatic abnormality Adrenal glands:Negative Kidneys, ureters, bladder:No obstructing or nonobstructing renal calculi. No hydronephrosis. No renal mass identified on this noncontrast enhanced examination. No perinephric abnormality. No hydroureter. No ureteral stone No bladder calculus. Bladder is somewhat distended. There is intravesical gas. Clinical correlation for previous instrumentation recommended. There is no intramural gas. Gastrointestinal:No significant diverticulosis or evidence for diverticulitis. No detectable colonic mass No mechanical small bowel obstruction. No small bowel dilatation. Appendix: The appendix is not well visualized. No evidence for appendicitis Vascular:There is calcification of the abdominal aorta. Infrarenal abdominal aorta is ectatic and measures 2.6 cm in maximum AP dimension. There is calcification of the origins of the celiac trunk and superior mesenteric artery. No evidence for stenosis. Lymphatic:No retroperitoneal adenopathy. No significant mesenteric adenopathy. Mesentery, peritoneum:No free intraperitoneal fluid. No intra-abdominal abscess. No pneumoperitoneum Reproductive:Uterus appears atrophic. No adnexal mass. Musculoskeletal:Mild L2 compression fracture, unchanged since 09/01/2020. Other lumbar vertebral body heights are maintained. No evidence for discitis or osteomyelitis on this noncontrast enhanced examination. Sacrum and pelvis are negative. Hips are negative bilaterally. No anterior abdominal wall or inguinal hernia. No subcutaneous soft tissue abnormality IMPRESSION: 1. Reticular abnormality and bronchial wall thickening both lung bases. Appearance is unchanged. No parenchymal consolidation 2. No intra-abdominal abscess 3. Urinary bladder is distended. There is intravesical gas. Clinical correlation for history of previous instrumentation recommended 4. Previous cholecystectomy 5. Atherosclerotic calcification. Infrarenal abdominal aortic ectasia 6. Mild L2 compression deformity, unchanged since 09/01/2020 The exam was performed using radiation dose optimization techniques including, but not limited to, automated exposure control, adjustment of the mA and/or kV according to patient size and use of iterative reconstruction technique. Interpreted and Authenticated by: Bucky Saldana 10/10/20
[2020-10-10] MEDS ORDERED: ONDANSETRON 4 MG/2 ML VIAL IV PRN ×2 (08:30→09:05)
[2020-10-10] MEDS ORDERED: ACETAMINOPHEN 325 MG TABLET PO PRN ×3 (08:30→12:09)
--- NOTE | 2020-10-10 08:51 | Internal Med History&Physical ---
HPI History of Present Illness Patient information: Note initiated : 10/10/20 at 8:32 am Service Date, if different from initiated Date: [] Patient: Candy Martinez a 75 y/o F admitted on for UTI/Fever. Chief Complaint: [] History of present illness: Ms. Martinez is a 75 year old F Who was admitted in August for a UTI. She has been at home with her son. She saw her primary care doctor not too long ago and was told she had a recurrent UTI. She called the home health nurse last night saying she was weak and had some nausea vomiting fevers and chills and that she felt this with confusion and so she went to the ED. In the ED she was worked up and found felt to have sepsis but unknown source, questionable pulmonary. Urinalysis looked clean. Blood pressure stable. But she was requiring oxygen. She says she has chronic shortness of breath but it is worse lately. She denies any coughing. She admits to headache fever chills nausea vomiting generalized weakness. Review of Systems: Pertinent positives as above. Denies chest or abdominal pain/cough/diarrhea. Many 10 point review of system reviewed negative PFSH PFSH All Active Problems (Updated 10/10/20 @ 06:35 by Rock Muro DO) Anemia due to stage 3b chronic kidney disease (Chronic) Acute UTI (Acute) Fall (Acute) Blunt chest trauma (Acute) Blunt abdominal trauma (Acute) Hypoxia (Acute) SIRS (systemic inflammatory response syndrome) (Acute) Secondary hyperparathyroidism of renal origin (Chronic) Localized edema due to fluid overload (Chronic) Gastritis (Acute) Cystitis (Acute) Yeast infection of the vagina (Acute) Acute sinusitis (Acute) Sepsis (Acute) Pneumonia (Acute) Laceration of left leg (Acute) Urinary hesitancy (Chronic) Chronic kidney disease (CKD) stage G3b/A2, moderately decreased glomerular filtration rate (GFR) between 30-44 mL/min/1.73 square meter and albuminuria creatinine ratio between 30-299 mg/g (Chronic) Polyarthralgia (Chronic) Leg pain (Chronic) Low back pain (Chronic) Osteoarthritis (Chronic) Back Pain (Chronic) Pain in both knees (Chronic) senior care current use of therapeutic drug (Chronic) Osteoporosis (Chronic) Long-term current use of steroids (Chronic) Fibromyalgia (Chronic) Other chest pain (Chronic) Lupus arthritis (Chronic) Sciatica (Chronic) Lumbar disc disease (Chronic) Thoracic outlet syndrome (Chronic) Eczema (Chronic) Irritable bowel (Chronic) Mixed hyperlipidemia (Chronic) Disturbance, sleep (Chronic) Migraine (Chronic) Depression (Chronic) Bilateral plantar fasciitis (Chronic) Trochanteric bursitis (Chronic) Spondylosis, lumbosacral (Chronic) Pelvic pain (Chronic) Autonomic neuropathy (Chronic) Neck pain (Chronic) Arthritis (Chronic) Essential hypertension (Chronic) Malaise and fatigue (Chronic) Degenerative disc disease, lumbar (Chronic) Anemia (Chronic) Esophageal reflux (Chronic) Neuritis (Chronic) Plantar fasciitis of left foot (Chronic) Iatrogenic Antionette's syndrome (Chronic) Fatigue (Chronic) Abnormal stress echocardiogram (Chronic) Myocardial infarction (Chronic) Edema (Chronic) Medical History Abnormal stress echocardiogram Anemia Arthritis Generalized Autonomic neuropathy Bilateral plantar fasciitis Chronic renal disease, stage II Cystitis Degenerative disc disease, lumbar With myelopathy Depression Disturbance, sleep NOS Eczema Edema Esophageal reflux Essential hypertension Benign Fatigue Fibromyalgia Gastritis Hypokalemia Hypokalemia Hypotension Iatrogenic Palmer's syndrome Irritable bowel Leg pain Long-term current use of steroids Low back pain Lumbar disc disease Lupus arthritis Malaise and fatigue Migraine Mixed hyperlipidemia Myocardial infarction Neck pain Neuritis Osteoarthritis Other chest pain Pelvic pain Chronic Plantar fasciitis of left foot Polyarthralgia Sciatica Septic shock SLE (systemic lupus erythematosus) Spondylosis, lumbosacral Thoracic outlet syndrome Trochanteric bursitis Left UTI (urinary tract infection) Yeast infection of the vagina Surgical History Hx of appendectomy Incidental with hysterectomy Hx of cholecystectomy Hx of hernia repair Hx of percutaneous transluminal coronary angioplasty Hx of shoulder surgery Left shoulder repair Hx of tubal ligation S/P partial hysterectomy Family History Mother , Bed ridden Pulmonary edema Fracture of hip Carcinoma of breast Hypertension Cerebrovascular accident (CVA) Deep vein thrombosis (DVT) Father , Age 68 Myocardial Infarction Cerebrovascular accident (CVA) Sisters Myocardial Infarction Alzheimer's disease Crohn's disease Brothers Cerebrovascular accident (CVA) Son Ulcerative colitis Hemorrhagic stroke Social History (Updated 11/03/19 @ 11:48 by Yanelis Valdovinos MD) housing: house marital status: education level: middle school occupational status: retired physical activity: walking frequency: 5-6 times per week alcohol intake frequency: does not drink substance use type: does not use seatbelt use: always MEDS/ALLERGIES Home Medications and Allergies Home Medications Medication Instructions Recorded Confirmed Type atorvastatin 20 mg PO HS 06/28/15 09/24/20 History hydrocodone-acetaminophen 1 tab PO Q4-6HP PRN 06/28/15 09/24/20 History aspirin 81 mg PO DAILY 07/09/15 09/24/20 History carvedilol 12.5 mg tablet See Rx Instructions .ROUTE .COMPLEX 07/17/15 09/24/20 History fluoxetine 20 mg capsule 20 mg PO QDAY 07/17/15 09/24/20 History multivitamin 1 tab-cap PO QDAY 07/17/15 09/24/20 History nitroglycerin 0.4 mg sublingual 0.4 mg SUBLINGUAL Q5-15MIN PRN 07/17/15 09/24/20 History tablet ondansetron HCl 4 mg tablet 4 mg PO QDAY PRN tab 05/21/17 09/24/20 History cholecalciferol (vitamin D3) See Rx Instructions .ROUTE .COMPLEX 09/06/18 09/24/20 History omeprazole 20 mg capsule,delayed 20 mg PO QDAY 09/06/18 09/24/20 History release furosemide 20 mg tablet 60 mg PO QDAY tab 02/08/19 09/24/20 History potassium chloride 10 mEq 20 meq PO BID tab 11/03/19 09/24/20 History tablet,extended release Allergies Allergy/AdvReac Type Severity Reaction Status Date / Time Amoxicillin [AMOXICILLIN] Allergy Intermediate HIVES Verified 10/10/20 04:28 Cefaclor [From CECLOR] Allergy Intermediate HIVES Verified 10/10/20 04:28 cephalexin [From KEFLEX] Allergy Intermediate HIVES Verified 10/10/20 04:28 ciprofloxacin [From Cipro] AdvReac Mild Itching Verified 10/10/20 04:28 Sulfa (Sulfonamide AdvReac Mild VOMIT Verified 10/10/20 04:28 Antibiotics) [SULFA (SULFONAMIDE ANTIBIOTICS)] EXAM Constitutional Vitals: Temp Pulse Resp BP Pulse Ox 100.2 F H 106 H 33 H 98/53 93 10/10/20 06:50 10/10/20 07:37 10/10/20 07:45 10/10/20 07:45 10/10/20 07:37 Exam: General: Alert, Awake, No acute Distress Eyes/N/T: EOMI, PERRL, Head/Neck: neck supple, normocephalic atraumatic CV: RRR, No murmurs, normal s1/s2 Pulm: Diminished b/l, mild bibasilar rhonchi, no wheezing Abd: soft, nontender, +BS x4 Ext: no clubbing/cyanosis/edema Neuro: Alert, no focal deficits, moves all extremities, CN 2-12 grossly intact, symmetrical strength b/l upper/lower, sensations intact b/l upper/lower Skin: warm/dry DATA Data Completed and Pending Labs: Labs from last 24 hours 10/10/20 10/10/20 10/10/20 08:16 05:36 05:35 WBC RBC Hgb Hct MCV MCH MCHC RDW Plt Count MPV Neut % (Auto) Lymph % (Auto) [place] % (Auto) Eos % (Auto) Baso % (Auto) Lymph # (Auto) [place] # (Auto) Eos # (Auto) Baso # (Auto) Absolute Neutrophils D-Dimer Pending ABG Methemoglobin 0 L VBG pH 7.28 VBG pCO2 53.2 VBG pO2 46.5 VBG HCO3 24.7 VBG Total CO2 26.3 VBG O2 Saturation 75.3 VBG Base Excess -2 VBG Lactic Acid Carboxyhemoglobin 3.4 H Total Hemoglobin 11.2 L Sodium Potassium Chloride Carbon Dioxide Anion Gap BUN Creatinine GFR Calculation Glucose Calcium Total Bilirubin AST ALT Alkaline Phosphatase Total Protein Albumin Globulin Albumin/Globulin Ratio Procalcitonin Urine Color Yellow Urine Appearance Clear Urine pH 7.0 Ur Specific [place] 1.010 Urine Protein Negative Urine Glucose (UA) Negative Urine Ketones Negative Urine Occult Blood Negative Urine Nitrate Negative Urine Bilirubin Negative Urine Urobilinogen Negative Ur Leukocyte Esterase Negative Ur Culture Indicated? No 10/10/20 10/10/20 10/10/20 04:45 04:45 04:45 WBC RBC Hgb Hct MCV MCH MCHC RDW Plt Count MPV Neut % (Auto) Lymph % (Auto) [place] % (Auto) Eos % (Auto) Baso % (Auto) Lymph # (Auto) [place] # (Auto) Eos # (Auto) Baso # (Auto) Absolute Neutrophils D-Dimer TNP ABG Methemoglobin VBG pH VBG pCO2 VBG pO2 VBG HCO3 VBG Total CO2 VBG O2 Saturation VBG Base Excess VBG Lactic Acid 1.9 Carboxyhemoglobin Total Hemoglobin Sodium Potassium Chloride Carbon Dioxide Anion Gap BUN Creatinine GFR Calculation Glucose Calcium Total Bilirubin AST ALT Alkaline Phosphatase Total Protein Albumin Globulin Albumin/Globulin Ratio Procalcitonin 1.08 H Urine Color Urine Appearance Urine pH Ur Specific [place] Urine Protein Urine Glucose (UA) Urine Ketones Urine Occult Blood Urine Nitrate Urine Bilirubin Urine Urobilinogen Ur Leukocyte Esterase Ur Culture Indicated? 10/10/20 10/10/20 04:45 04:45 WBC 14.3 H RBC 4.03 Hgb 12.0 Hct 38.4 MCV 95.3 MCH 29.8 MCHC 31.3 RDW 13.7 Plt Count 210 MPV 9.4 Neut % (Auto) 91.7 H Lymph % (Auto) 5.2 L [place] % (Auto) 1.3 Eos % (Auto) 1.6 Baso % (Auto) 0.2 Lymph # (Auto) 0.75 L [place] # (Auto) 0.18 Eos # (Auto) 0.23 Baso # (Auto) 0.03 Absolute Neutrophils 13.12 H D-Dimer ABG Methemoglobin VBG pH VBG pCO2 VBG pO2 VBG HCO3 VBG Total CO2 VBG O2 Saturation VBG Base Excess VBG Lactic Acid Carboxyhemoglobin Total Hemoglobin Sodium 139 Potassium 3.5 Chloride 102 Carbon Dioxide 25 Anion Gap 12.0 BUN 22 Creatinine 1.1 GFR Calculation 49 Glucose 105 Calcium 8.1 L Total Bilirubin 0.5 AST 32 H ALT 33 Alkaline Phosphatase 82 Total Protein 6.1 Albumin 3.9 Globulin 2.2 Albumin/Globulin Ratio 1.8 Procalcitonin Urine Color Urine Appearance Urine pH Ur Specific [place] Urine Protein Urine Glucose (UA) Urine Ketones Urine Occult Blood Urine Nitrate Urine Bilirubin Urine Urobilinogen Ur Leukocyte Esterase Ur Culture Indicated? A/P Narrative A/P Narrative: A: *Sepsis: suspected pulmonary source, PSI= 126 -UA unremarkable *Acute on likely chronic hypoxic respiratory failure: -on 2L NC *COPD(not on home O2): has seen Jean-Paul in past *h/o CAD: on ASA/BB *CKD IIIB: Follows with Dr. Rehman *Anemia, chronic: *HTN: *Depression: *GERD: * P: -Rocephin/azithromycin, pending BC -RVP/strep pending, -O2 support(wean as able), nebs/is/acapella -ABG -f/u chest imaging - -PT/OT -ppx: lovenox/home ppi DNR Time Spent With Patient Time: Total time spent is greater than 50% in coordination of care (as documented) at patient's floor/unit and/or counseling patient:
[2020-10-10] MEDS ORDERED: LEVOFLOXACIN 750 MG/150 ML BAG IV SCH (09:00)
[2020-10-10] MEDS ORDERED: POTASSIUM CHLORIDE 20 MEQ TABLET PO PRN ×4 (09:05→12:09)
[2020-10-10] MEDS ORDERED: MAGNESIUM SULFATE 2 GM/50 ML BAG IV PRN ×2 (09:05→12:09)
[2020-10-10] MEDS ORDERED: POTASSIUM CHLORIDE 40 MEQ in DEXTROSE 5% IN WATER 500 ML IV PRN ×2 (09:05→12:09)
[2020-10-10] MEDS ORDERED: LACTULOSE 20 GM/30 ML ORAL.SOL PO PRN ×2 (09:05→12:09)
[2020-10-10] MEDS ORDERED: IPRATROPIUM/ALBUTEROL 3 ML AMPUL.NEB NEB PRN ×2 (09:05→12:09)
[2020-10-10] MEDS ORDERED: POLYETHYLENE GLYCOL 3350 17 GM PACKET PO PRN ×2 (09:05→12:09)
[2020-10-10] MEDS ORDERED: SENNOSIDES 1 TABLET PO PRN ×2 (09:05→12:09)
[2020-10-10] MEDS ORDERED: AZITHROMYCIN 500 MG in DEXTROSE 5% IN WATER 250 ML IV SCH (09:15)
[2020-10-10] MEDS ORDERED: cefTRIAXone 2 GM in DEXTROSE 5% IN WATER 50 ML IV SCH (09:15)
--- NOTE | 2020-10-10 09:57 | EKG ---
[facility] Test Date: 2020-10-10 Pat Name: Candy Martinez [facility] Room: 106 Gender: Female [employer]: : [id number] Requested By: Sha Low Order Number: [id number] Reading MD: Jens Harris M.D. Measurements Intervals [place] Rate: 103 P: 53 NH: 143 QRS: 7 QRSD: 92 T: 27 QT: 371 QTc: 486 Interpretive Statements Age not entered, assumed to be 49 years old for purpose of ECG interpretation Sinus tachycardia Low voltage, extremity and precordial leads Borderline prolonged QT interval No prior tracing for comparison. I reviewed and agree with the above findings. Electronically Signed On 10-10-2020 17:40:23 PDT by Jens Harris M.D. /[email or web address]/[id number]
[2020-10-10] MEDS ORDERED: HYDROcodone/APAP 10/325MG TABLET PO PRN (10:51)
[2020-10-10 11:07] LABS: Band Neutrophils % 11 % (0-10); Lymphocytes % 5 % (15-49); Monocytes % (Manual) 1 % (1-12); Platelet Estimate NORMAL (Normal); RBC Morphology NORMAL (Normal); Reactive Lymphocytes 2 % (0-2); Segmented Neutrophils % 81 % (38-78)
[2020-10-10] MEDS ORDERED: METHOCARBAMOL 500 MG TABLET PO PRN (11:12)
[2020-10-10] MEDS ORDERED: VANCOMYCIN PER PHARMACY IV SCH (12:09)
[2020-10-10] MEDS ORDERED: VANCOMYCIN 1,000 MG in 0.9 % SODIUM CHLORIDE 250 ML IV SCH (13:00)
[2020-10-10] MEDS: METHOCARBAMOL 500 MG TABLET PO PRN ×2 (13:05→21:05)
[2020-10-10] MEDS ORDERED: 0.9 % SODIUM CHLORIDE 10 ML SYRINGE IV SCH (14:00)
[2020-10-10] MEDS ORDERED: IOPAMIDOL 100 ML BOTTLE IV ONE (14:13)
[2020-10-10] MEDS: 0.9 % SODIUM CHLORIDE 10 ML SYRINGE IV SCH ×2 (14:38→21:06)
[2020-10-10] MEDS: HYDROcodone/APAP 10/325MG TABLET PO PRN ×2 (14:53→19:15)
--- NOTE | 2020-10-10 14:58 | Cat Scan Report ---
INDICATION: f/u PE, ?PNA not seen on cxr COMPARISON: Previous CT scan dated 09/01/2020 TECHNIQUE: Axial images obtained through the chest. 50ml Isovue 370 injected intravenously, and scanning was performed during pulmonary arterial phase. Sagittally and coronally reformatted images were obtained. MIP reformatted images. FINDINGS: Lungs:There is mild centrilobular emphysema. No parenchymal consolidation. There are small subpleural nodular densities bilaterally. There is a 6 mm subpleural nodule in the left upper lobe, image 28. This is not identified previously and is considered benign. These are essentially stable. There is reticular abnormality bilaterally. This is nonspecific and consistent with interlobular septal thickening. Findings are more prominent than on previous examination. Interstitial edema is most likely. Interstitial pneumonia is possible. Mediastinum, vascular:Main pulmonary artery, right pulmonary artery, left pulmonary artery are negative. No intraluminal filling defects. No lobar, segmental, or subsegmental emboli. Thoracic aorta is negative. No aneurysmal dilatation No pathologic mediastinal or hilar adenopathy The trachea is crescent shaped which may indicate tracheomalacia. This is a new finding since 09/01/2020 Heart:No cardiomegaly. No pericardial effusion.. There is severe calcified coronary artery disease. Pleura:No significant pleural effusion Axilla, supraclavicular regions, chest wall:No pathologic axillary or supraclavicular adenopathy. Musculoskeletal:Negative thoracic spine. No compression fracture. No lytic lesion. No rib or sternal lesions Upper Abdomen:Negative. Incidental note is made of previous cholecystectomy IMPRESSION: 1. Negative examination for pulmonary embolism 2. Reticular abnormality consistent with interlobular septal thickening and probable interstitial pulmonary edema. Interstitial pneumonia is possible 3. [place] shaped trachea. 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 No parenchymal consolidation The exam was performed using radiation dose optimization techniques including, but not limited to, automated exposure control, adjustment of the mA and/or kV according to patient size and use of iterative reconstruction technique. Interpreted and Authenticated by: Bucky Saldana 10/10/20
[2020-10-10] MEDS: ONDANSETRON 4 MG/2 ML VIAL IV PRN (17:25)
[2020-10-10] MEDS ORDERED: DOCUSATE SODIUM 100 MG CAPSULE PO SCH (21:00)
[2020-10-10] MEDS ORDERED: IPRATROPIUM/ALBUTEROL 3 ML AMPUL.NEB NEB SCH (21:00)
[2020-10-10] MEDS: DOCUSATE SODIUM 100 MG CAPSULE PO SCH (21:05)
[2020-10-10] MEDS: IPRATROPIUM/ALBUTEROL 3 ML AMPUL.NEB NEB SCH (21:21)
[2020-10-11] MEDS: HYDROcodone/APAP 10/325MG TABLET PO PRN ×4 (00:05→20:14)
[2020-10-11] MEDS: ONDANSETRON 4 MG/2 ML VIAL IV PRN ×4 (02:30→16:07)
[2020-10-11] MEDS: 0.9 % SODIUM CHLORIDE 10 ML SYRINGE IV SCH ×4 (02:30→14:07)
[2020-10-11 06:29] LABS: Basophils # (Auto) 0.02 K/mcL (0.00-0.20); Basophils % (Auto) 0.1 % (0.0-2.0); Eosinophils # (Auto) 0.59 K/mcL (0.00-0.70); Eosinophils % (Auto) 4.1 % (0.0-7.0); Hematocrit 35.8 % (36.0-48.0); Hemoglobin 10.9 g/dL (12.0-15.0); Lymphocytes # (Auto) 2.53 K/mcL (1.50-4.80); Lymphocytes % (Auto) 17.4 % (15.0-49.0); Mean Cell Volume 97.8 fL (80.0-100.0); Mean Corpuscular HGB Conc 30.4 g/dL (31.0-36.0); Mean Platelet Volume 9.4 fL (7.4-10.4); Monocytes % (Auto) 4.8 % (1.0-12.0); Neutrophils % (Auto) 73.6 % (38.0-78.0); Platelet Count 170 K/mcL (140-440); RBC 3.66 M/mcL (4.00-5.20); Red Cell Distribution Width 14.2 % (11.5-14.5); WBC 14.5 K/mcL (4.5-11.0)
[2020-10-11] MEDS: PANTOPRAZOLE 40 MG TABLET PO SCH (07:09)
[2020-10-11 07:11] LABS: ALT/SGPT 38 U/L (<40); AST/SGOT 40 U/L (<32); Albumin 3.5 gm/dL (3.2-5.2); Albumin/Globulin Ratio 1.2 (1.0-2.3); Alkaline Phosphatase 93 U/L (39-117); Bilirubin,Direct < 0.2 mg/dL (0-0.3); Bilirubin,Total 0.5 mg/dL (0.1-1.0); Blood Urea Nitrogen 16 mg/dL (8-23); Calcium 8.2 mg/dL (8.6-10.4); Carbon Dioxide 19 mmol/L (22-30); Chloride 105 mmol/L (96-108); Globulin 2.9 gm/dL (2.2-3.7); Glomerular Filtration Rate 49; Glucose 81 mg/dL (70-105); Lactate Dehydrogenase 272 U/L (135-225); Phosphorous 3.1 mg/dL (2.5-4.5); Triglycerides 93 mg/dL (<150); Uric Acid 6.4 mg/dL (2.5-8.0)
--- NOTE | 2020-10-11 07:28 | Internal Med Progress Note ---
SUBJECTIVE Subjective Patient information: Note initiated : 10/11/20 at 7:22 am Service Date, if different from initiated Date: [] Patient: Candy Martinez 75 y/o F admitted on 10/10/20 for UTI/Fever. Chief Complaint: [] Interval history: History of present illness: Ms. Martinez is a 75 year old F Who was admitted in August for a UTI. She has been at home with her son. She saw her primary care doctor not too long ago and was told she had a recurrent UTI. She called the home health nurse last night saying she was weak and had some nausea vomiting fevers and chills and that she felt this with confusion and so she went to the ED. In the ED she was worked up and found felt to have sepsis but unknown source, questionable pulmonary. Urinalysis looked clean. Blood pressure stable. But she was requiring oxygen. She says she has chronic shortness of breath but it is worse lately. She denies any coughing. She admits to headache fever chills nausea vomiting generalized weakness. 10/11 Patient feeling a little better today. She feels her shortness of breath is improved. She has a occasional dry cough. She has some occasional nausea. Review of Systems: denies headache/fever/chills/vomiting/chest or abdominal pain/diarrhea. Otherwise see above. Constitutional Vitals: Vital Signs Temp Pulse Resp BP Pulse Ox 97.7 F 75 20 144/69 96 10/11/20 07:02 10/11/20 07:02 10/11/20 07:02 10/11/20 07:02 10/11/20 07:02 Period Temp Pulse Resp BP Sys/Conroy Pulse Ox Last 24 Hr 97.4 F-98.7 F 75-111 16-36 78-144/45-79 92-97 Intake and Output 10/10/20 10/11/20 10/11/20 21:59 05:59 13:59 Intake Total 900 400 Output Total 1000 750 Balance -100 -350 Weight 63.503 kg Intake & Output: Intake & Output 10/10/20 10/11/20 10/11/20 21:59 05:59 13:59 Intake Total 900 400 Output Total 1000 750 Balance -100 -350 Weight 63.503 kg Intake: Oral 900 400 Output: Void Amount 1000 750 Other: Meal Dinner Percent of Meal Consumed 50% Feeding Ability Independent Urine Appearance Clear Clear Clear Urine Color Bright Yellow Pale Straw Urine Odor Normal Normal Normal Stool Size Moderate Stool Consistency Liquid # Bowel Movements 1 Exam: General: Alert, Awake, No acute Distress Eyes/N/T: EOMI, Head/Neck: neck supple, CV: RRR, No murmurs, Pulm: Diminished b/l, no rales, no wheezing Abd: soft, nontender, +BS x4 Ext: no clubbing/cyanosis/edema Neuro: Alert, no focal deficits, moves all extremities, Skin: warm/dry OBJ DATA Labs CBC & Chem 7: 10/11/20 05:32 10/11/20 05:32 Labs: Abnormal Lab Results 10/11/20 10/11/20 10/10/20 05:32 05:32 08:16 WBC 14.5 H RBC 3.66 L Hgb 10.9 L Hct 35.8 L MCHC 30.4 L Neut % (Auto) Lymph % (Auto) Lymph # (Auto) Seg Neutrophils % Band Neutrophils % Lymphocytes % Absolute Neutrophils 10.69 H D-Dimer 0.87 H ABG Methemoglobin Carboxyhemoglobin Total Hemoglobin Carbon Dioxide 19 L Calcium 8.2 L AST 40 H Lactate Dehydrogenase 272 H C-Reactive Protein 16.90 H Procalcitonin 10/10/20 10/10/20 10/10/20 05:36 04:45 04:45 WBC RBC Hgb Hct MCHC Neut % (Auto) Lymph % (Auto) Lymph # (Auto) Seg Neutrophils % 81 H Band Neutrophils % 11 H Lymphocytes % 5 L Absolute Neutrophils D-Dimer ABG Methemoglobin 0 L Carboxyhemoglobin 3.4 H Total Hemoglobin 11.2 L Carbon Dioxide Calcium AST Lactate Dehydrogenase C-Reactive Protein 1.00 H Procalcitonin 10/10/20 10/10/20 10/10/20 04:45 04:45 04:45 WBC 14.3 H RBC Hgb Hct MCHC Neut % (Auto) 91.7 H Lymph % (Auto) 5.2 L Lymph # (Auto) 0.75 L Seg Neutrophils % Band Neutrophils % Lymphocytes % Absolute Neutrophils 13.12 H D-Dimer ABG Methemoglobin Carboxyhemoglobin Total Hemoglobin Carbon Dioxide Calcium 8.1 L AST 32 H Lactate Dehydrogenase C-Reactive Protein Procalcitonin 1.08 H Meds: Medications Acetaminophen (Acetaminophen 325 Mg Tablet) 650 mg PO Q6HP PRN PRN Reason: PAIN/FEVER > 101 Hydrocodone Bitart/Acetaminophen (Hydrocodone/Apap 10/325mg Tablet) 1 - 2 tab PO Q4HP PRN; Protocol PRN Reason: Per Pain Protocol Last Admin: 10/11/20 00:05 Dose: 2 tab Documented by: Albuterol/Ipratropium (Ipratropium/Albuterol 3 Ml Ampul.Neb) 3 ml NEB Q12 [facility] Last Admin: 10/10/20 21:21 Dose: 3 ml Documented by: Albuterol/Ipratropium (Ipratropium/Albuterol 3 Ml Ampul.Neb) 3 ml NEB Q4HP PRN PRN Reason: Shortness Of Breath Docusate Sodium (Docusate Sodium 100 Mg Capsule) 100 mg PO BID [facility] Last Admin: 10/10/20 21:05 Dose: 100 mg Documented by: Enoxaparin Sodium (Enoxaparin 40 Mg/0.4 Ml Syringe) 40 mg SQ DAILY [facility] Levofloxacin (Levaquin) 750 mg in 150 mls @ 100 mls/hr IV Q48H [facility] Magnesium Sulfate (Magnesium Sulfate) 2 gm in 50 mls @ 50 mls/hr IV UD PRN PRN Reason: Magnesium </= 1.6 Potassium Chloride 40 meq/ (Dextrose) 520 mls @ 130 mls/hr IV UD PRN PRN Reason: Potassium < 3 Vancomycin HCl 1,000 mg/ (Sodium Chloride) 250 mls @ 250 mls/hr IV DAILY [facility] Lactulose (Lactulose 20 Gm/30 Ml Oral.Zoila) 20 gm PO DAILYP PRN PRN Reason: Constipation Methocarbamol (Methocarbamol 500 Mg Tablet) 500 mg PO QIDP PRN PRN Reason: Muscle Spasm Last Admin: 10/10/20 21:05 Dose: 500 mg Documented by: Ondansetron HCl (Ondansetron 4 Mg/2 Ml Vial) 4 mg IV Q4HP PRN PRN Reason: Nausea And Vomiting Last Admin: 10/11/20 06:06 Dose: 4 mg Documented by: Pantoprazole Sodium (Pantoprazole 40 Mg Tablet) 40 mg PO QAMAC [facility] Last Admin: 10/11/20 07:09 Dose: 40 mg Documented by: Polyethylene Glycol (Polyethylene Glycol 3350 17 Gm Packet) 17 gm PO DAILYP PRN PRN Reason: Constipation Potassium Chloride (Potassium Chloride 20 Meq Tablet) 40 meq PO UD PRN PRN Reason: Potssium is 3-3.5 Last Admin: 10/10/20 21:06 Dose: 40 meq Documented by: Potassium Chloride (Potassium Chloride 20 Meq Tablet) 40 meq PO UD PRN PRN Reason: Potassium < 3 Senna (Sennosides 1 Tablet) 2 tab PO DAILYP PRN PRN Reason: Constipation Sodium Chloride (0.9 % Sodium Chloride 10 Ml Syringe) 10 ml IV Q8 [facility] Last Admin: 10/11/20 06:06 Dose: 10 ml Documented by: Vancomycin HCl (Vancomycin Per Pharmacy) 1 order IV UD [facility]; Protocol ABG Interpretation ABG results: 10/10/20 05:36 ABG Methemoglobin 0 L VBG pH 7.28 VBG pCO2 53.2 VBG pO2 46.5 VBG HCO3 24.7 VBG Total CO2 26.3 VBG O2 Saturation 75.3 VBG Base Excess -2 A/P Narrative A/P Narrative: A: *Sepsis: suspected pulmonary source -UA unremarkable -no PE on CTA -febrile/leukocytosis on admit. afebrile o/n *Suspected PNA: -PSI= 126 -rvp/strep neg *Acute on likely chronic hypoxic respiratory failure: -on 2L NC *COPD(not on home O2): has seen [facility] in past *h/o CAD: on ASA/BB *CKD IIIB: Follows with Dr. Rehman *Anemia, chronic: *HTN: *Depression: *GERD: *Fibromyalgia: pt states on Prednisone 5mg daily for fibro P: -Vanco(d/c soon)/levaquin, multiple allergies, pending BC/SC -O2 support(wean as able), nebs/is/acapella -ABG -IS -cont BB/asa/statin -cont home prednisone -PT/OT -ppx: lovenox/home ppi DNR Time Spent With Patient Time: Total time spent is greater than 50% in coordination of care (as documented) at patient's floor/unit and/or counseling patient: QUALITY VTE Deep Vein Thrombosis/Pulmonary Embolism Present on Admission: No
[2020-10-11] MEDS ORDERED: PANTOPRAZOLE 40 MG TABLET PO SCH (07:30)
[2020-10-11] MEDS ORDERED: HYDROcodone/APAP 10/325MG TABLET PO PRN (08:03)
[2020-10-11] MEDS ORDERED: METOCLOPRAMIDE 10 MG TABLET PO PRN (08:03)
[2020-10-11] MEDS: CARVEDILOL 12.5 MG TABLET PO SCH ×2 (08:22→16:35)
[2020-10-11] MEDS: ENOXAPARIN 40 MG/0.4 ML SYRINGE SQ SCH (08:22)
[2020-10-11] MEDS: DOCUSATE SODIUM 100 MG CAPSULE PO SCH ×2 (08:22→20:14)
[2020-10-11] MEDS: FLUoxetine HCL 20 MG CAPSULE PO SCH (08:22)
[2020-10-11] MEDS ORDERED: VANCOMYCIN 1,000 MG in 0.9 % SODIUM CHLORIDE 250 ML IV SCH (09:00)
[2020-10-11] MEDS ORDERED: ENOXAPARIN 40 MG/0.4 ML SYRINGE SQ SCH (09:00)
[2020-10-11] MEDS: ASPIRIN 81 MG TAB.CHEW PO SCH (09:25)
[2020-10-11] MEDS: IPRATROPIUM/ALBUTEROL 3 ML AMPUL.NEB NEB SCH ×2 (09:43→20:14)
[2020-10-11] MEDS: METHOCARBAMOL 500 MG TABLET PO PRN (09:56)
[2020-10-11 10:00] LABS: Band Neutrophils % 4 % (0-10); Basophils % (Manual) 2 % (0-2); Eosinophils % (Manual) 8 % (0-7); Lymphocytes % 22 % (15-49); Monocytes % (Manual) 5 % (1-12); Platelet Estimate NORMAL (Normal); RBC Morphology NORMAL (Normal); Segmented Neutrophils % 59 % (38-78)
[2020-10-11] MEDS: ATORVASTATIN 20 MG TABLET PO SCH (20:14)
[2020-10-12] MEDS: 0.9 % SODIUM CHLORIDE 10 ML SYRINGE IV SCH ×5 (00:05→20:38)
[2020-10-12] MEDS: ONDANSETRON 4 MG/2 ML VIAL IV PRN ×2 (03:51→08:43)
[2020-10-12] MEDS: HYDROcodone/APAP 10/325MG TABLET PO PRN ×4 (03:51→20:30)
[2020-10-12 06:48] LABS: Basophils # (Auto) 0.03 K/mcL (0.00-0.20); Basophils % (Auto) 0.4 % (0.0-2.0); Eosinophils # (Auto) 0.46 K/mcL (0.00-0.70); Eosinophils % (Auto) 5.6 % (0.0-7.0); Hematocrit 32.4 % (36.0-48.0); Lymphocytes # (Auto) 2.03 K/mcL (1.50-4.80); Lymphocytes % (Auto) 24.8 % (15.0-49.0); Mean Cell Volume 95.9 fL (80.0-100.0); Mean Corpuscular HGB Conc 30.9 g/dL (31.0-36.0); Mean Platelet Volume 9.8 fL (7.4-10.4); Monocytes # (Auto) 0.57 K/mcL (0.10-0.90); Neutrophils % (Auto) 62.2 % (38.0-78.0); Platelet Count 164 K/mcL (140-440); RBC 3.38 M/mcL (4.00-5.20); Red Cell Distribution Width 14.4 % (11.5-14.5); WBC 8.2 K/mcL (4.5-11.0)
[2020-10-12] MEDS: PANTOPRAZOLE 40 MG TABLET PO SCH (07:04)
[2020-10-12] MEDS: CARVEDILOL 12.5 MG TABLET PO SCH ×2 (07:04→16:41)
[2020-10-12] MEDS: predniSONE 5 MG TABLET PO SCH (07:04)
--- NOTE | 2020-10-12 07:10 | Internal Med Progress Note ---
SUBJECTIVE Subjective Patient information: Note initiated : 10/12/20 at 7:07 am Service Date, if different from initiated Date: [] Patient: Candy Martinez 75 y/o F admitted on 10/10/20 for UTI/Fever. Chief Complaint: [] Interval history: History of present illness: Ms. Martinez is a 75 year old F Who was admitted in August for a UTI. She has been at home with her son. She saw her primary care doctor not too long ago and was told she had a recurrent UTI. She called the home health nurse last night saying she was weak and had some nausea vomiting fevers and chills and that she felt this with confusion and so she went to the ED. In the ED she was worked up and found felt to have sepsis but unknown source, questionable pulmonary. Urinalysis looked clean. Blood pressure stable. But she was requiring oxygen. She says she has chronic shortness of breath but it is worse lately. She denies any coughing. She admits to headache fever chills nausea vomiting generalized weakness. 10/11 Patient feeling a little better today. She feels her shortness of breath is improved. She has a occasional dry cough. She has some occasional nausea. 10/12 Patient with occasional nausea but otherwise no complaints. She says her shortness of breath is improving and she is on 1 L with sats in the mid 90s. She has occasional cough. Review of Systems: denies headache/fever/chills/vomiting/chest or abdominal pain/diarrhea. Otherwise see above. Constitutional Vitals: Vital Signs Temp Pulse Resp BP Pulse Ox 99 F 102 H 18 116/61 95 10/12/20 03:34 10/12/20 03:34 10/11/20 23:12 10/12/20 03:34 10/12/20 03:34 Period Temp Pulse Resp BP Sys/Conroy Pulse Ox Last 24 Hr 96.6 F-99 F 81-102 16-20 97-128/47-70 92-97 Intake and Output 10/11/20 10/12/20 10/12/20 21:59 05:59 13:59 Intake Total 1080 700 Output Total 475 425 150 Balance 605 275 -150 Weight 64.41 kg Intake & Output: Intake & Output 10/11/20 10/12/20 10/12/20 21:59 05:59 13:59 Intake Total 1080 700 Output Total 475 425 150 Balance 605 275 -150 Weight 64.41 kg Intake: Oral 1080 700 Output: Void Amount 475 425 150 Other: Meal Dinner Percent of Meal Consumed 50% Urine Appearance Clear Clear Urine Color Pale Bright Yellow Urine Odor Normal Exam: General: Alert, Awake, No acute Distress Eyes/N/T: EOMI, Head/Neck: neck supple, CV: RRR, No murmurs, Pulm: better aerationl, no rales, no wheezing Abd: soft, nontender, +BS x4 Ext: no clubbing/cyanosis/edema Neuro: Alert, no focal deficits, moves all extremities, Skin: warm/dry OBJ DATA Labs CBC & Chem 7: 10/12/20 05:21 10/12/20 05:21 Labs: Abnormal Lab Results 10/12/20 10/11/20 10/11/20 05:21 05:32 05:32 WBC RBC 3.38 L Hgb 10.0 L Hct 32.4 L MCHC 30.9 L Neut % (Auto) Lymph % (Auto) Lymph # (Auto) Seg Neutrophils % Band Neutrophils % Lymphocytes % Eosinophils % (Manual) 8 H Absolute Neutrophils D-Dimer ABG Methemoglobin Carboxyhemoglobin Total Hemoglobin Carbon Dioxide 19 L Calcium 8.2 L AST 40 H Lactate Dehydrogenase 272 H C-Reactive Protein 16.90 H Procalcitonin 10/11/20 10/10/20 10/10/20 05:32 08:16 05:36 WBC 14.5 H RBC 3.66 L Hgb 10.9 L Hct 35.8 L MCHC 30.4 L Neut % (Auto) Lymph % (Auto) Lymph # (Auto) Seg Neutrophils % Band Neutrophils % Lymphocytes % Eosinophils % (Manual) Absolute Neutrophils 10.69 H D-Dimer 0.87 H ABG Methemoglobin 0 L Carboxyhemoglobin 3.4 H Total Hemoglobin 11.2 L Carbon Dioxide Calcium AST Lactate Dehydrogenase C-Reactive Protein Procalcitonin 10/10/20 10/10/20 10/10/20 04:45 04:45 04:45 WBC RBC Hgb Hct MCHC Neut % (Auto) Lymph % (Auto) Lymph # (Auto) Seg Neutrophils % 81 H Band Neutrophils % 11 H Lymphocytes % 5 L Eosinophils % (Manual) Absolute Neutrophils D-Dimer ABG Methemoglobin Carboxyhemoglobin Total Hemoglobin Carbon Dioxide Calcium AST Lactate Dehydrogenase C-Reactive Protein 1.00 H Procalcitonin 1.08 H 10/10/20 10/10/20 04:45 04:45 WBC 14.3 H RBC Hgb Hct MCHC Neut % (Auto) 91.7 H Lymph % (Auto) 5.2 L Lymph # (Auto) 0.75 L Seg Neutrophils % Band Neutrophils % Lymphocytes % Eosinophils % (Manual) Absolute Neutrophils 13.12 H D-Dimer ABG Methemoglobin Carboxyhemoglobin Total Hemoglobin Carbon Dioxide Calcium 8.1 L AST 32 H Lactate Dehydrogenase C-Reactive Protein Procalcitonin Meds: Medications Acetaminophen (Acetaminophen 325 Mg Tablet) 650 mg PO Q6HP PRN PRN Reason: PAIN/FEVER > 101 Hydrocodone Bitart/Acetaminophen (Hydrocodone/Apap 10/325mg Tablet) 1 - 2 tab PO Q4HP PRN; Protocol PRN Reason: Per Pain Protocol Last Admin: 10/12/20 03:51 Dose: 2 tab Documented by: Albuterol/Ipratropium (Ipratropium/Albuterol 3 Ml Ampul.Neb) 3 ml NEB Q12 [facility] Last Admin: 10/11/20 20:14 Dose: 3 ml Documented by: Albuterol/Ipratropium (Ipratropium/Albuterol 3 Ml Ampul.Neb) 3 ml NEB Q4HP PRN PRN Reason: Shortness Of Breath Aspirin (Aspirin 81 Mg Tab.Chew) 81 mg PO DAILY [facility] Last Admin: 10/11/20 09:25 Dose: 81 mg Documented by: Atorvastatin Calcium (Atorvastatin 20 Mg Tablet) 20 mg PO HS [facility] Last Admin: 10/11/20 20:14 Dose: 20 mg Documented by: Carvedilol (Carvedilol 12.5 Mg Tablet) 25 mg PO BIDCC [facility] Last Admin: 10/12/20 07:04 Dose: 25 mg Documented by: Docusate Sodium (Docusate Sodium 100 Mg Capsule) 100 mg PO BID [facility] Last Admin: 10/11/20 20:14 Dose: 100 mg Documented by: Enoxaparin Sodium (Enoxaparin 40 Mg/0.4 Ml Syringe) 40 mg SQ DAILY [facility] Last Admin: 10/11/20 08:22 Dose: 40 mg Documented by: Fluoxetine HCl (Fluoxetine Hcl 20 Mg Capsule) 20 mg PO QDAY [facility] Last Admin: 10/11/20 08:22 Dose: 20 mg Documented by: Levofloxacin (Levaquin) 750 mg in 150 mls @ 100 mls/hr IV Q48H [facility] Magnesium Sulfate (Magnesium Sulfate) 2 gm in 50 mls @ 50 mls/hr IV UD PRN PRN Reason: Magnesium </= 1.6 Potassium Chloride 40 meq/ (Dextrose) 520 mls @ 130 mls/hr IV UD PRN PRN Reason: Potassium < 3 Vancomycin HCl 1,000 mg/ (Sodium Chloride) 250 mls @ 250 mls/hr IV DAILY [facility] Last Infusion: 10/11/20 09:45 Dose: Infused Documented by: Lactulose (Lactulose 20 Gm/30 Ml Oral.Zoila) 20 gm PO DAILYP PRN PRN Reason: Constipation Methocarbamol (Methocarbamol 500 Mg Tablet) 500 mg PO QIDP PRN PRN Reason: Muscle Spasm Last Admin: 10/11/20 09:56 Dose: 500 mg Documented by: Metoclopramide HCl (Metoclopramide 10 Mg Tablet) 10 mg PO BIDP PRN PRN Reason: Nausea Ondansetron HCl (Ondansetron 4 Mg/2 Ml Vial) 4 mg IV Q4HP PRN PRN Reason: Nausea And Vomiting Last Admin: 10/12/20 03:51 Dose: 4 mg Documented by: Pantoprazole Sodium (Pantoprazole 40 Mg Tablet) 40 mg PO [facility] Last Admin: 10/12/20 07:04 Dose: 40 mg Documented by: Polyethylene Glycol (Polyethylene Glycol 3350 17 Gm Packet) 17 gm PO DAILYP PRN PRN Reason: Constipation Potassium Chloride (Potassium Chloride 20 Meq Tablet) 40 meq PO UD PRN PRN Reason: Potssium is 3-3.5 Last Admin: 10/10/20 21:06 Dose: 40 meq Documented by: Potassium Chloride (Potassium Chloride 20 Meq Tablet) 40 meq PO UD PRN PRN Reason: Potassium < 3 Prednisone (Prednisone 5 Mg Tablet) [address] [facility] Last Admin: 10/12/20 07:04 Dose: 5 mg Documented by: Senna (Sennosides 1 Tablet) 2 tab PO DAILYP PRN PRN Reason: Constipation Sodium Chloride (0.9 % Sodium Chloride 10 Ml Syringe) 10 ml IV Q8 [facility] Last Admin: 10/12/20 05:52 Dose: Not Given Documented by: Vancomycin HCl (Vancomycin Per Pharmacy) 1 order IV UD FIDEL; Protocol ABG Interpretation ABG results: 10/10/20 05:36 ABG Methemoglobin 0 L VBG pH 7.28 VBG pCO2 53.2 VBG pO2 46.5 VBG HCO3 24.7 VBG Total CO2 26.3 VBG O2 Saturation 75.3 VBG Base Excess -2 A/P Narrative A/P Narrative: A: *Sepsis: 2/2 PNA -UA unremarkable -no PE on CTA -febrile(resolved)/leukocytosis (resolved) on admit. *Suspected PNA: -PSI= 126 -rvp/strep neg *Acute on likely chronic hypoxic respiratory failure: -on 1L NC sats mid 90's *COPD(not on home O2): has seen [facility] in past *h/o CAD: on ASA/BB *CKD IIIB: Follows with Dr. Rehman *Anemia, chronic: *HTN: *Depression: *GERD: *Fibromyalgia: pt states on Prednisone 5mg daily for fibro P: -Vanco(d/c)/levaquin, multiple allergies, pending BC/SC -O2 support(wean as able), nebs/is/acapella -IS -cont BB/asa/statin -cont home prednisone -PT/OT -ppx: lovenox/home ppi DNR Time Spent With Patient Time: Total time spent is greater than 50% in coordination of care (as documented) at patient's floor/unit and/or counseling patient: [facility] VTE Deep Vein Thrombosis/Pulmonary Embolism Present on Admission: No
[2020-10-12 07:20] LABS: ALT/SGPT 26 U/L (<40); AST/SGOT 21 U/L (<32); Albumin 3.3 gm/dL (3.2-5.2); Albumin/Globulin Ratio 1.3 (1.0-2.3); Alkaline Phosphatase 82 U/L (39-117); Bilirubin,Direct < 0.2 mg/dL (0-0.3); Bilirubin,Total 0.4 mg/dL (0.1-1.0); Blood Urea Nitrogen 12 mg/dL (8-23); Calcium 8.8 mg/dL (8.6-10.4); Carbon Dioxide 22 mmol/L (22-30); Chloride 106 mmol/L (96-108); Globulin 2.5 gm/dL (2.2-3.7); Glomerular Filtration Rate 49; Glucose 86 mg/dL (70-105); Lactate Dehydrogenase 189 U/L (135-225); Phosphorous 2.7 mg/dL (2.5-4.5); Triglycerides 95 mg/dL (<150); Uric Acid 6.4 mg/dL (2.5-8.0)
[2020-10-12] MEDS: IPRATROPIUM/ALBUTEROL 3 ML AMPUL.NEB NEB SCH ×2 (07:35→19:53)
[2020-10-12] MEDS ORDERED: FUROSEMIDE 20 MG/2 ML VIAL IV ONE (08:13)
[2020-10-12] MEDS: ASPIRIN 81 MG TAB.CHEW PO SCH (08:42)
[2020-10-12] MEDS: DOCUSATE SODIUM 100 MG CAPSULE PO SCH ×2 (08:42→20:30)
[2020-10-12] MEDS: FLUoxetine HCL 20 MG CAPSULE PO SCH (08:42)
[2020-10-12] MEDS: ENOXAPARIN 40 MG/0.4 ML SYRINGE SQ SCH (08:43)
[2020-10-12] MEDS ORDERED: LEVOFLOXACIN 750 MG/150 ML BAG IV SCH (09:00)
--- NOTE | 2020-10-12 09:10 | Discharge Summary ---
Discharge Provider Provider Patient information: Note initiated : 10/12/20 at 9:08 am Service Date, if different from initiated Date: [] Patient: Candy Martinez 75 y/o F admitted on 10/10/20 for UTI/Fever. Chief Complaint: [] Date of admission: 10/10/20 09:52 Discharge date: 10/13/20 Primary care physician: Joanne Gould Consults: 10/10/20 Consult to Physician [CONS] Stat Comment: Consulting Provider: Sha Low Reason For Exam: Physician to Consult Discharge Meds Discharge Medications Home Medications atorvastatin 20 mg PO HS 06/28/15 [History Confirmed 10/10/20 Last Taken 07/07/15] hydrocodone-acetaminophen 1 tab PO Q4-6HP PRN 06/28/15 [History Confirmed 10/10/20 Last Taken 07/07/15] fluoxetine 20 mg capsule 20 mg PO QDAY 07/17/15 [History Confirmed 10/10/20 Last Taken Unknown] omeprazole 20 mg capsule,delayed release 20 mg PO QDAY 09/06/18 [History Confirmed 10/10/20 Last Taken Unknown] furosemide 20 mg tablet 60 mg PO QDAY tab 02/08/19 [History Confirmed 10/10/20 Last Taken Unknown] potassium chloride 10 mEq tablet,extended release 20 meq PO BID tab 11/03/19 [History Confirmed 10/10/20 Last Taken Unknown] calcitriol 0.25 mcg PO 3XW 10/10/20 [History Confirmed 10/10/20 Last Taken Unknown] carvedilol 25 mg PO BID 10/10/20 [History Confirmed 10/10/20 Last Taken Unknown] metoclopramide HCl 10 mg PO BID PRN 10/10/20 [History Confirmed 10/10/20 Last Taken Unknown] nitrofurantoin monohyd/m-cryst 100 mg PO BID 10/10/20 [History Confirmed 10/10/20 Last Taken Unknown] prednisone 5 mg PO DAILY 10/10/20 [History Confirmed 10/10/20 Last Taken Unknown] levofloxacin 750 mg PO QDAY #1 tab 10/12/20 [Rx Last Taken Unknown] COURSE Hospital Course Hospital course: Interval history: History of present illness: Ms. Martinez is a 75 year old F Who was admitted in August for a UTI. She has been at home with her son. She saw her primary care doctor not too long ago and was told she had a recurrent UTI. She called the home health nurse last night saying she was weak and had some nausea vomiting fevers and chills and that she felt this with confusion and so she went to the ED. In the ED she was worked up and found felt to have sepsis but unknown source, questionable pulmonary. Urinalysis looked clean. Blood pressure stable. But she was requiring oxygen. She says she has chronic shortness of breath but it is worse lately. She denies any coughing. She admits to headache fever chills nausea vomiting generalized weakness. 10/11 Patient feeling a little better today. She feels her shortness of breath is improved. She has a occasional dry cough. She has some occasional nausea. 10/12 Patient with occasional nausea but otherwise no complaints. She says her shortness of breath is improving and she is on 1 L with sats in the mid 90s. She has occasional cough. 10/13 Patient seems to be doing well. No overnight events. Patient on room air today. A: *Sepsis: 06/19 PNA *PNA: *Acute on likely chronic hypoxic respiratory failure: *COPD(not on home O2): has seen [facility] in past *h/o CAD: on ASA/BB *CKD IIIB: Follows with Dr. Rehman *Anemia, chronic: *HTN: *Depression: *GERD: *Fibromyalgia: pt states on Prednisone 5mg daily for fibro Discharge diagnosis: Sepsis pneumonia acute hypoxic respite failure Secondary discharge diagnosis: COPD CAD chronic kidney disease anemia hypertension depression fibromyalgia Time Spent with Patient Time attestation: Total time spent providing and/or coordinating discharge services: Time spent: Greater than 30 minutes EXAM Constitutional Vitals: Temp Pulse Resp BP Pulse Ox 98 F 82 18 122/60 95 10/12/20 07:37 10/12/20 07:37 10/12/20 07:37 10/12/20 07:37 10/12/20 07:37 Discharge Data Data Completed and Pending Labs on day of discharge: Labs from last 24 hours 10/12/20 10/12/20 10/12/20 05:21 05:21 05:21 WBC 8.2 RBC 3.38 L Hgb 10.0 L Hct 32.4 L MCV 95.9 MCH 29.6 MCHC 30.9 L RDW 14.4 Plt Count 164 MPV 9.8 Neut % (Auto) 62.2 Lymph % (Auto) 24.8 [place] % (Auto) 7.0 Eos % (Auto) 5.6 Baso % (Auto) 0.4 Lymph # (Auto) 2.03 [place] # (Auto) 0.57 Eos # (Auto) 0.46 Baso # (Auto) 0.03 Seg Neutrophils % Band Neutrophils % Lymphocytes % Monocytes % (Manual) Eosinophils % (Manual) Basophils % (Manual) Absolute Neutrophils 5.09 Platelet Estimate RBC Morphology Sodium 138 Potassium 3.9 Chloride 106 Carbon Dioxide 22 Anion Gap 10.0 BUN 12 Creatinine 1.1 GFR Calculation 49 Glucose 86 Uric Acid 6.4 Calcium 8.8 Phosphorus 2.7 Magnesium 2.0 Total Bilirubin 0.4 Direct Bilirubin < 0.2 GGT 19 AST 21 ALT 26 Alkaline Phosphatase 82 Lactate Dehydrogenase 189 C-Reactive Protein 7.10 H Total Protein 5.8 L Albumin 3.3 Globulin 2.5 Albumin/Globulin Ratio 1.3 Triglycerides 95 Procalcitonin 2.31 H 10/11/20 05:32 WBC RBC Hgb Hct MCV MCH MCHC RDW Plt Count MPV Neut % (Auto) Lymph % (Auto) [place] % (Auto) Eos % (Auto) Baso % (Auto) Lymph # (Auto) [place] # (Auto) Eos # (Auto) Baso # (Auto) Seg Neutrophils % 59 Band Neutrophils % 4 Lymphocytes % 22 Monocytes % (Manual) 5 Eosinophils % (Manual) 8 H Basophils % (Manual) 2 Absolute Neutrophils Platelet Estimate Normal RBC Morphology Normal Sodium Potassium Chloride Carbon Dioxide Anion Gap BUN Creatinine GFR Calculation Glucose Uric Acid Calcium Phosphorus Magnesium Total Bilirubin Direct Bilirubin GGT AST ALT Alkaline Phosphatase Lactate Dehydrogenase C-Reactive Protein Total Protein Albumin Globulin Albumin/Globulin Ratio Triglycerides Procalcitonin Preliminary micro results at discharge 10/10/20 05:36 Blood Culture - Preliminary Blood 10/10/20 04:45 Blood Culture - Preliminary Blood 10/10/20 05:35 Urine Culture - Preliminary Urine - Catheterized Discharge Plan Patient/Caregiver Discharge Instructions Activity: increase activity as tolerated Diet: Cardiac Prescriptions: New levofloxacin 750 mg tablet 750 mg PO QDAY Qty: 1 RF: 0 Continued fluoxetine [Prozac] 20 mg capsule 20 mg PO QDAY RF: 0 omeprazole 20 mg capsule,delayed release(DR/EC) 20 mg PO QDAY RF: 0 furosemide 20 mg tablet 60 mg PO QDAY RF: 0 potassium chloride 10 mEq tablet extended release 20 meq PO BID RF: 0 atorvastatin 20 MG tablet 20 mg PO HS RF: 0 hydrocodone-acetaminophen 1 TAB tablet 1 tab PO Q4-6HP PRN (Reason: Pain) RF: 0 carvedilol 25 mg tablet 25 mg PO BID RF: 0 prednisone 5 mg tablet 5 mg PO DAILY RF: 0 calcitriol 0.25 mcg Capsule 0.25 mcg PO 3XW RF: 0 metoclopramide HCl 10 mg tablet 10 mg PO BID PRN (Reason: Nausea) RF: 0 nitrofurantoin monohyd/m-cryst 100 mg capsule 100 mg PO BID RF: 0 Follow Up Plan Follow up with: Joanne Gould MD [Primary Care Provider] - Patient Disposition: Home Health Service Prognosis: Fair Overall status at discharge: patient is progressing back to baseline Discharge Orders: Discharge Order (Routine); Ordered 10/13/20 Ordered By: Sha Low [facility] VTE Deep Vein Thrombosis/Pulmonary Embolism Present on Admission: No
[2020-10-12] MEDS: METHOCARBAMOL 500 MG TABLET PO PRN (15:14)
[2020-10-12] MEDS: ATORVASTATIN 20 MG TABLET PO SCH (20:30)
[2020-10-13] MEDS: 0.9 % SODIUM CHLORIDE 10 ML SYRINGE IV SCH (06:29)
[2020-10-13] MEDS: PANTOPRAZOLE 40 MG TABLET PO SCH (07:16)
[2020-10-13] MEDS: CARVEDILOL 12.5 MG TABLET PO SCH (07:16)
[2020-10-13] MEDS: predniSONE 5 MG TABLET PO SCH (07:16)
[2020-10-13] MEDS: ONDANSETRON 4 MG/2 ML VIAL IV PRN (07:23)
[2020-10-13] MEDS: HYDROcodone/APAP 10/325MG TABLET PO PRN (07:27)
[2020-10-13] MEDS: ASPIRIN 81 MG TAB.CHEW PO SCH (08:19)
[2020-10-13] MEDS: ENOXAPARIN 40 MG/0.4 ML SYRINGE SQ SCH (08:19)
[2020-10-13] MEDS: DOCUSATE SODIUM 100 MG CAPSULE PO SCH (08:19)
[2020-10-13] MEDS: FLUoxetine HCL 20 MG CAPSULE PO SCH (08:19)
[2020-10-13] MEDS: IPRATROPIUM/ALBUTEROL 3 ML AMPUL.NEB NEB SCH (09:44)
== END 2020-10-13 10:49 | disposition home health service (06) | DRG 871 ==
LOC: ED 04:18 → MEDSUR 09:52
PROVIDERS: ADMIT Internal Medicine; ATTEND Internal Medicine

== ENCOUNTER 2021-02-22 09:28 | Inpatient (IN) ==
[2021-02-22] MEDS ORDERED: ONDANSETRON 4 MG/2 ML VIAL IV ONE (10:31)
[2021-02-22] MEDS ORDERED: GENTAMICIN PER PHARMACY IV ONE (10:38)
--- NOTE | 2021-02-22 11:00 | XRay Report ---
INDICATION: sob TECHNIQUE: AP portable upright chest x-ray COMPARISON: None FINDINGS: Lungs:Lungs are negative. No focal pulmonary parenchymal infiltrate or mass Heart, vascular:No significant cardiomegaly. Pulmonary vascularity is normal. No pulmonary edema or pulmonary congestion Mediastinum, nila:No mediastinal widening. No hilar mass Pleura:No pleural fluid. No pleural-based mass or calcification Skeletal:Negative. IMPRESSION: 1. Negative AP chest x-ray 2. No significant interval change Interpreted and Authenticated by: Bucky Saldana 02/22/21
[2021-02-22 11:31] LABS: Hematocrit 41.6 % (34.1-44.9); Hemoglobin 13.4 g/dL (11.2-15.7); Mean Cell Volume 97.4 fL (80.0-100.0); Mean Corpuscular HGB Conc 32.2 g/dL (31.0-36.0); Platelet Count 183 K/mcL (140-440); RBC 4.27 M/mcL (3.59-5.38); WBC 14.2 K/mcL (4.5-11.0)
[2021-02-22 11:45] LABS: ALT/SGPT 18 U/L (<40); AST/SGOT 20 U/L (<32); Albumin 4.1 gm/dL (3.2-5.2); Albumin/Globulin Ratio 1.5 (1.0-2.3); Alkaline Phosphatase 71 U/L (39-117); Bilirubin,Total 0.6 mg/dL (0.1-1.0); Blood Urea Nitrogen 22 mg/dL (8-23); Calcium 9.1 mg/dL (8.6-10.4); Carbon Dioxide 24 mmol/L (22-30); Chloride 103 mmol/L (96-108); Globulin 2.7 gm/dL (2.2-3.7); Glomerular Filtration Rate 40; Glucose 102 mg/dL (70-105)
[2021-02-22] MEDS ORDERED: POTASSIUM CHLORIDE 20 MEQ TABLET PO ONE (11:59)
[2021-02-22] MEDS ORDERED: SODIUM CHLORIDE 0.9% IV ONE (12:15)
[2021-02-22] MEDS ORDERED: GENTAMICIN SULFATE IV ONE (12:15)
[2021-02-22] MEDS: 0.9 % SODIUM CHLORIDE 500 ML IV ONE ×2 (12:48→13:00)
[2021-02-22] MEDS ORDERED: MAGNESIUM SULFATE 8.12 MEQ/2 ML VIAL IV ONE (12:55)
[2021-02-22] MEDS ORDERED: POTASSIUM CHLORIDE 20 MEQ in DEXTROSE 5% IN WATER 250 ML IV ONE (12:55)
[2021-02-22] MEDS ORDERED: 0.9 % SODIUM CHLORIDE 1,000 ML IV ONE ×2 (12:56→13:10)
[2021-02-22 13:13] LABS: Band Neutrophils % 25 % (0-10); Lymphocytes % 12 % (15-49); Monocytes % (Manual) 1 % (1-12); Platelet Estimate NORMAL (Normal); RBC Morphology NORMAL (Normal); Segmented Neutrophils % 62 % (38-78)
[2021-02-22] MEDS ORDERED: ADENOSINE 3 MG/ML VIAL IV ONE ×2 (13:56→13:58)
[2021-02-22] MEDS ORDERED: DILTIAZEM 25 MG/5 ML VIAL IV ONE (14:10)
[2021-02-22] MEDS ORDERED: DILTIAZEM 125 MG in DEXTROSE 5% IN WATER 100 ML IV SCH (14:15)
[2021-02-22] MEDS ORDERED: ENOXAPARIN 60 MG/0.6 ML SYRINGE SQ ONE (15:23)
[2021-02-22] MEDS ORDERED: HYDROcodone/APAP 10/325MG TABLET PO ONE (15:25)
[2021-02-22] MEDS ORDERED: HYDROcodone/APAP 5/325MG TABLET PO ONE (16:12)
[2021-02-22] MEDS ORDERED: morphine 2 MG/ML VIAL IV PRN ×2 (16:50→19:25)
--- NOTE | 2021-02-22 16:52 | Internal Med History&Physical ---
HPI History of Present Illness Patient information: Note initiated : 02/22/21 at 4:50 pm Service Date, if different from initiated Date: [] Patient: Candy Martinez a 75 y/o F admitted on for n/v. Chief Complaint: [pyelonephritis with sepsis, atrial fibrillation] History of present illness: Ms. Martinez is a 75 year old F history of lupus arthritis and CAD, presenting with 3 months history of intermittent urinary symptoms including dysuria and change in urinary frequency, as well as 2-day history of nausea and vomiting. Over the past 3 months, she has intermittent urinary symptoms including dysuria and change in urinary frequency. She also h ave associated fever and chills over the same. Time. She also started to have nausea and vomiting since yesterday. As such, she finally decided to presented to her PCP office for further evaluations. The diagnosis of urinary tract infections was made and she was being prescribed with oral Macrobid. She presented to our ED today due to worsening of her symptoms. She is also committing of general body weakness. Vital signs significant for tachycardia with heart rate up to 160 as well as tachypnea with rate of breathing up to the 40s. Blood pressure was also low as 80s over 40s. She was also found to be in atrial fibrillation's. Labs significant for leukocytosis with WBC 14.2. Serum potassium level 2.8. Serum creatinine level 1.3 with baseline 1.1. Serum lactic acid of 2.7. Urine analysis pending. IV fluid boluses given in ED. Constitutional Constitutional: Present chills, fatigue, fever(s) and weakness; Absent excessive sweating EENT Eyes: Absent blurry vision, change in vision, loss of vision and other visual disturbances Ears: Absent decreased hearing and tinnitus Nose, mouth and throat: Absent abnormal hearing, dry mouth, headache(s), nasal congestion and sore throat Cardiovascular Cardiovascular: Present chest pain; Absent chest pain at rest, edema, irregular heart rhythm and palpatations Respiratory Respiratory: Present dyspnea; Absent cough and wheezing Gastrointestinal Gastrointestinal: Absent abdominal pain, constipation, diarrhea, nausea and vomiting Genitourinary Genitourinary: Present as per HPI and urinary frequency Additional comments: dysuria Musculoskeletal Musculoskeletal: Absent back pain, deformity, limited range of motion, muscle cramps, muscle weakness and numbness Integumentary Integumentary: Absent lesions, rash and wounds Neurological Neurological: Absent focal weakness, headache(s) and numbness Psychiatric Psychiatric: Absent anxiety, depression and hallucinations PFSH PFSH All Active Problems (Updated 02/22/21 @ 17:08 by Michael Gusman MD) Atrial fibrillation (Acute) Hypokalemia (Acute) Stage 1 acute kidney injury (Acute) CAD (coronary artery disease) (Acute) Pyelonephritis (Acute) Clinical sepsis (Acute) Anemia due to stage 3b chronic kidney disease (Chronic) Acute UTI (Acute) Fall (Acute) Blunt chest trauma (Acute) Blunt abdominal trauma (Acute) Hypoxia (Acute) SIRS (systemic inflammatory response syndrome) (Acute) Secondary hyperparathyroidism of renal origin (Chronic) Localized edema due to fluid overload (Chronic) Gastritis (Acute) Cystitis (Acute) Yeast infection of the vagina (Acute) Acute sinusitis (Acute) Sepsis (Acute) Pneumonia (Acute) Laceration of left leg (Acute) Urinary hesitancy (Chronic) Chronic kidney disease (CKD) stage G3b/A2, moderately decreased glomerular filtration rate (GFR) between 30-44 mL/min/1.73 square meter and albuminuria creatinine ratio between 30-299 mg/g (Chronic) Polyarthralgia (Chronic) Leg pain (Chronic) Low back pain (Chronic) Osteoarthritis (Chronic) Back Pain (Chronic) Pain in both knees (Chronic) intermediate current use of therapeutic drug (Chronic) Osteoporosis (Chronic) Long-term current use of steroids (Chronic) Fibromyalgia (Chronic) Other chest pain (Chronic) Lupus arthritis (Chronic) Sciatica (Chronic) Lumbar disc disease (Chronic) Thoracic outlet syndrome (Chronic) Eczema (Chronic) Irritable bowel (Chronic) Mixed hyperlipidemia (Chronic) Disturbance, sleep (Chronic) Migraine (Chronic) Depression (Chronic) Bilateral plantar fasciitis (Chronic) Trochanteric bursitis (Chronic) Spondylosis, lumbosacral (Chronic) Pelvic pain (Chronic) Autonomic neuropathy (Chronic) Neck pain (Chronic) Arthritis (Chronic) Essential hypertension (Chronic) Malaise and fatigue (Chronic) Degenerative disc disease, lumbar (Chronic) Anemia (Chronic) Esophageal reflux (Chronic) Neuritis (Chronic) Plantar fasciitis of left foot (Chronic) Iatrogenic Antionette's syndrome (Chronic) Fatigue (Chronic) Abnormal stress echocardiogram (Chronic) Myocardial infarction (Chronic) Edema (Chronic) Medical History Abnormal stress echocardiogram Anemia Arthritis Generalized Autonomic neuropathy Bilateral plantar fasciitis Chronic renal disease, stage II Cystitis Degenerative disc disease, lumbar With myelopathy Depression Disturbance, sleep NOS Eczema Edema Esophageal reflux Essential hypertension Benign Fatigue Fibromyalgia Gastritis Hypokalemia Hypokalemia Hypotension Iatrogenic Antionette's syndrome Irritable bowel Leg pain Long-term current use of steroids Low back pain Lumbar disc disease Lupus arthritis Malaise and fatigue Migraine Mixed hyperlipidemia Myocardial infarction Neck pain Neuritis Osteoarthritis Other chest pain Pelvic pain Chronic Plantar fasciitis of left foot Polyarthralgia Sciatica Septic shock SLE (systemic lupus erythematosus) Spondylosis, lumbosacral Thoracic outlet syndrome Trochanteric bursitis Left UTI (urinary tract infection) Yeast infection of the vagina Surgical History Hx of appendectomy Incidental with hysterectomy Hx of cholecystectomy Hx of hernia repair Hx of percutaneous transluminal coronary angioplasty Hx of shoulder surgery Left shoulder repair Hx of tubal ligation S/P partial hysterectomy Family History Mother , Bed ridden Pulmonary edema Fracture of hip Carcinoma of breast Hypertension Cerebrovascular accident (CVA) Deep vein thrombosis (DVT) Father , Age 68 Myocardial Infarction Cerebrovascular accident (CVA) Sisters Myocardial Infarction Alzheimer's disease Crohn's disease Brothers Cerebrovascular accident (CVA) Son Ulcerative colitis Hemorrhagic stroke Social History (Updated 11/03/19 @ 11:48 by Yanelis Valdovinos MD) housing: house marital status: education level: middle school occupational status: retired physical activity: walking frequency: 5-6 times per week alcohol intake frequency: does not drink substance use type: does not use seatbelt use: always MEDS/ALLERGIES Home Medications and Allergies Home Medications Medication Instructions Recorded Confirmed Type atorvastatin 20 mg PO HS 06/28/15 10/10/20 History hydrocodone-acetaminophen 1 tab PO Q4-6HP PRN 06/28/15 10/10/20 History fluoxetine 20 mg capsule 20 mg PO QDAY 07/17/15 10/10/20 History omeprazole 20 mg capsule,delayed 20 mg PO QDAY 09/06/18 10/10/20 History release furosemide 20 mg tablet 60 mg PO QDAY tab 02/08/19 10/10/20 History potassium chloride 10 mEq 20 meq PO BID tab 11/03/19 10/10/20 History tablet,extended release calcitriol 0.25 mcg PO 3XW 10/10/20 10/10/20 History carvedilol 25 mg PO BID 10/10/20 10/10/20 History metoclopramide HCl 10 mg PO BID PRN 10/10/20 10/10/20 History nitrofurantoin monohyd/m-cryst 100 mg PO BID 10/10/20 10/10/20 History prednisone 5 mg PO DAILY 10/10/20 10/10/20 History levofloxacin 750 mg PO QDAY #1 tab 10/12/20 Rx Allergies Allergy/AdvReac Type Severity Reaction Status Date / Time Amoxicillin [AMOXICILLIN] Allergy Intermediate HIVES Verified 10/10/20 04:28 Cephalosporins Allergy Mild Hives Verified 10/10/20 09:23 ciprofloxacin [From Cipro] AdvReac Mild Itching Verified 10/10/20 04:28 Sulfa (Sulfonamide AdvReac Mild VOMIT Verified 10/10/20 04:28 Antibiotics) [SULFA (SULFONAMIDE ANTIBIOTICS)] EXAM Constitutional Vitals: Temp Pulse Resp BP Pulse Ox 37.2 C 114 H 30 H 105/54 97 02/22/21 09:34 02/22/21 16:31 02/22/21 16:31 02/22/21 16:31 02/22/21 16:31 General appearance: cooperative and no acute distress Head Head exam: Present atraumatic and normocephalic Eye Eye exam: Present EOMI and PERRL ENT ENT exam: Present mucous membranes moist, normal exam and normal external ear exam Additional comments: Nasal cannula in place Neck Neck exam: Present normal inspection; Absent lymphadenopathy, tenderness and thyromegaly Respiratory Respiratory exam: Absent accessory muscle use, respiratory distress and wheezes Cardiovascular Cardiovascular exam: Present irregular rhythm and tachycardia; Absent JVD GI/Abdominal GI/Abdominal exam: Present normal bowel sounds and soft; Absent organomegaly and tenderness Extremities Exam Extremities exam: Present full ROM, normal capillary refill and normal inspection; Absent tenderness Neurological Exam Neurological exam: Present alert, CN II-XII intact and oriented X3; Absent motor sensory deficit Psychiatric Psychiatric exam: Present normal affect and normal mood; Absent anxious and depressed Skin Skin exam: Present dry and intact DATA Data Completed and Pending Labs: Labs from last 24 hours 02/22/21 02/22/21 02/22/21 16:15 10:29 10:29 WBC RBC Hgb Hct MCV MCH MCHC RDW Plt Count MPV Seg Neutrophils % Band Neutrophils % Lymphocytes % Monocytes % (Manual) Platelet Estimate RBC Morphology VBG Lactic Acid 2.7 H Sodium 140 Potassium 2.8 L* Chloride 103 Carbon Dioxide 24 Anion Gap 13.0 BUN 22 Creatinine 1.3 H GFR Calculation 40 Glucose 102 Calcium 9.1 Total Bilirubin 0.6 AST 20 ALT 18 Alkaline Phosphatase 71 Total Protein 6.8 Albumin 4.1 Globulin 2.7 Albumin/Globulin Ratio 1.5 Urine Color Pending Urine Appearance Pending Urine pH Pending Ur Specific [place] Pending Urine Protein Pending Urine Glucose (UA) Pending Urine Ketones Pending Urine Occult Blood Pending Urine Nitrate Pending Urine Bilirubin Pending Urine Urobilinogen Pending Ur Leukocyte Esterase Pending 02/22/21 10:29 WBC 14.2 H RBC 4.27 Hgb 13.4 Hct 41.6 MCV 97.4 MCH 31.4 MCHC 32.2 RDW 15.0 H Plt Count 183 MPV 9.0 Seg Neutrophils % 62 Band Neutrophils % 25 H Lymphocytes % 12 L Monocytes % (Manual) 1 Platelet Estimate Normal RBC Morphology Normal VBG Lactic Acid Sodium Potassium Chloride Carbon Dioxide Anion Gap BUN Creatinine GFR Calculation Glucose Calcium Total Bilirubin AST ALT Alkaline Phosphatase Total Protein Albumin Globulin Albumin/Globulin Ratio Urine Color Urine Appearance Urine pH Ur Specific [place] Urine Protein Urine Glucose (UA) Urine Ketones Urine Occult Blood Urine Nitrate Urine Bilirubin Urine Urobilinogen Ur Leukocyte Esterase A/P Assessment and plan (1) Clinical sepsis: Status: Acute (2) Pyelonephritis: Status: Acute (3) Chronic kidney disease (CKD) stage G3b/A2, moderately decreased glomerular filtration rate (GFR) between 30-44 mL/min/1.73 square meter and albuminuria creatinine ratio between 30-299 mg/g: Status: Chronic (4) Lupus arthritis: Status: Chronic (5) CAD (coronary artery disease): Status: Acute (6) Stage 1 acute kidney injury: Status: Acute (7) Hypokalemia: Status: Acute (8) Atrial fibrillation: Status: Acute Narrative A/P Narrative: Assessment and plan: 1. Pyelonephritis with clinical sepsis: Admission to inpatient ICU with telemetry Serial lactic acid Blood culture Urine culture CBC with auto differential in the morning to trend WBC Tylenol as needed fever Zosyn (does not use cephalosporin such as Rocephin due to allergy profile) Status post IV fluid boluses given in the ED, to be followed by LR at 100 cc/h #2 atrial fibrillations: [id number] score of 5, will initiate oral anticoagulation therapy with Xarelto Continue oral beta-azael from home regiment Diltiazem drip, will continue on for tonight and will consider transition to oral diltiazem in the morning 2D echocardiogram 3. Stage I acute kidney injury in the context of chronic kidney disease stage III: Avoid nephrotoxic agents Status post IV fluid boluses given in the ED, to be followed by LR at 100 cc/h CMP in the morning to trend kidney functions 4. Hypokalemia: Likely associated with nausea vomiting secondary to pyelonephritis Zofran IV as needed nausea vomiting Reglan IV as needed nausea vomiting Potassium replacement as per protocol CMP in the morning to trend serum potassium level and will repeat replacement as needed Also check serum magnesium level and will replace if needed 5. History of lupus arthritis: No code as needed moderate pain Morphine IV as needed severe pain Continue prednisone from home regiment #6 history of CAD: Continue aspirin from home regiment Continue statin from home regiment GI prophylaxis: Continue oral PPI from home regiment DVT prophylaxis: Xarelto CODE STATUS: Full code Prognosis: Guarded Dispositions: Inpatient ICU Critical care time: 1 hour Time Spent With Patient Time: Total time spent is greater than 50% in coordination of care (as documented) at patient's floor/unit and/or counseling patient: Total time spent with greater than 50% in coordination of care (as documented) at patient's floor/unit and/or counseling patient:: Greater than 35 minutes
[2021-02-22] MEDS ORDERED: POTASSIUM CHLORIDE 20 MEQ in DEXTROSE 5% IN WATER 250 ML IV PRN ×2 (17:00→19:25)
--- NOTE | 2021-02-22 17:23 | Emergency Department Note ---
HPI General Chief complaint: Nausea/Vomiting/Diarrhea Stated complaint: n/v Time Seen by Provider: 02/22/21 09:53 Source: patient Mode of arrival: ambulatory Limitations: no limitations History of Present Illness HPI Narrative: Narrative: 75-year-old female with history of coronary artery disease, prior UTI, chronic kidney disease, hyperlipidemia, hypertension presents from home for evaluation of vomiting and malaise. She reports for the past couple of weeks she has had dysuria and frequency, went to her primary yesterday and was started on Macrobid and then started getting some chills and this nausea and vomiting. She denies abdominal pain. She denies chest pain or pressure or shortness of breath. She denies leg swelling. On arrival she was found to be severely tachycardic and in SVT and was taken back to the room Related Data Home Medications Medication Instructions Recorded Confirmed atorvastatin 20 mg PO HS 06/28/15 10/10/20 hydrocodone-acetaminophen 1 tab PO Q4-6HP PRN 06/28/15 10/10/20 fluoxetine 20 mg capsule 20 mg PO QDAY 07/17/15 10/10/20 omeprazole 20 mg capsule,delayed 20 mg PO QDAY 09/06/18 10/10/20 release furosemide 20 mg tablet 60 mg PO QDAY tab 02/08/19 10/10/20 potassium chloride 10 mEq 20 meq PO BID tab 11/03/19 10/10/20 tablet,extended release calcitriol 0.25 mcg PO 3XW 10/10/20 10/10/20 carvedilol 25 mg PO BID 10/10/20 10/10/20 metoclopramide HCl 10 mg PO BID PRN 10/10/20 10/10/20 nitrofurantoin monohyd/m-cryst 100 mg PO BID 10/10/20 10/10/20 prednisone 5 mg PO DAILY 10/10/20 10/10/20 Previous Rx's Medication Instructions Recorded levofloxacin 750 mg PO QDAY #1 tab 10/12/20 Allergies Allergy/AdvReac Type Severity Reaction Status Date / Time Amoxicillin [AMOXICILLIN] Allergy Intermediate HIVES Verified 10/10/20 04:28 Cephalosporins Allergy Mild Hives Verified 10/10/20 09:23 ciprofloxacin [From Cipro] AdvReac Mild Itching Verified 10/10/20 04:28 Sulfa (Sulfonamide AdvReac Mild VOMIT Verified 10/10/20 04:28 Antibiotics) [SULFA (SULFONAMIDE ANTIBIOTICS)] Review of Systems ROS ROS Narrative: Narrative: All systems ED: reviewed and negative except as stated. [facility], [facility] Narrative Patient History Narrative: Narrative: Medical/Surgical/Family History All Active Problems (Updated 02/22/21 @ 17:34 by Elkin Martins DO) Atrial fibrillation with rapid ventricular response (Acute) Sepsis (Acute) Urinary tract infection (Acute) Acute hypokalemia (Acute) Atrial fibrillation (Acute) Hypokalemia (Acute) Stage 1 acute kidney injury (Acute) CAD (coronary artery disease) (Acute) Pyelonephritis (Acute) Clinical sepsis (Acute) Anemia due to stage 3b chronic kidney disease (Chronic) Acute UTI (Acute) Fall (Acute) Blunt chest trauma (Acute) Blunt abdominal trauma (Acute) Hypoxia (Acute) SIRS (systemic inflammatory response syndrome) (Acute) Secondary hyperparathyroidism of renal origin (Chronic) Localized edema due to fluid overload (Chronic) Gastritis (Acute) Cystitis (Acute) Yeast infection of the vagina (Acute) Acute sinusitis (Acute) Sepsis (Acute) Pneumonia (Acute) Laceration of left leg (Acute) Urinary hesitancy (Chronic) Chronic kidney disease (CKD) stage G3b/A2, moderately decreased glomerular filtration rate (GFR) between 30-44 mL/min/1.73 square meter and albuminuria creatinine ratio between 30-299 mg/g (Chronic) Polyarthralgia (Chronic) Leg pain (Chronic) Low back pain (Chronic) Osteoarthritis (Chronic) Back Pain (Chronic) Pain in both knees (Chronic) intermediate current use of therapeutic drug (Chronic) Osteoporosis (Chronic) Long-term current use of steroids (Chronic) Fibromyalgia (Chronic) Other chest pain (Chronic) Lupus arthritis (Chronic) Sciatica (Chronic) Lumbar disc disease (Chronic) Thoracic outlet syndrome (Chronic) Eczema (Chronic) Irritable bowel (Chronic) Mixed hyperlipidemia (Chronic) Disturbance, sleep (Chronic) Migraine (Chronic) Depression (Chronic) Bilateral plantar fasciitis (Chronic) Trochanteric bursitis (Chronic) Spondylosis, lumbosacral (Chronic) Pelvic pain (Chronic) Autonomic neuropathy (Chronic) Neck pain (Chronic) Arthritis (Chronic) Essential hypertension (Chronic) Malaise and fatigue (Chronic) Degenerative disc disease, lumbar (Chronic) Anemia (Chronic) Esophageal reflux (Chronic) Neuritis (Chronic) Plantar fasciitis of left foot (Chronic) Iatrogenic Alpha's syndrome (Chronic) Fatigue (Chronic) Abnormal stress echocardiogram (Chronic) Myocardial infarction (Chronic) Edema (Chronic) Medical History Abnormal stress echocardiogram Anemia Arthritis Generalized Autonomic neuropathy Bilateral plantar fasciitis Chronic renal disease, stage II Cystitis Degenerative disc disease, lumbar With myelopathy Depression Disturbance, sleep NOS Eczema Edema Esophageal reflux Essential hypertension Benign Fatigue Fibromyalgia Gastritis Hypokalemia Hypokalemia Hypotension Iatrogenic Alpha's syndrome Irritable bowel Leg pain Long-term current use of steroids Low back pain Lumbar disc disease Lupus arthritis Malaise and fatigue Migraine Mixed hyperlipidemia Myocardial infarction Neck pain Neuritis Osteoarthritis Other chest pain Pelvic pain Chronic Plantar fasciitis of left foot Polyarthralgia Sciatica Septic shock SLE (systemic lupus erythematosus) Spondylosis, lumbosacral Thoracic outlet syndrome Trochanteric bursitis Left UTI (urinary tract infection) Yeast infection of the vagina Surgical History Hx of appendectomy Incidental with hysterectomy Hx of cholecystectomy Hx of hernia repair Hx of percutaneous transluminal coronary angioplasty Hx of shoulder surgery Left shoulder repair Hx of tubal ligation S/P partial hysterectomy Family History Mother , Bed ridden Pulmonary edema Fracture of hip Carcinoma of breast Hypertension Cerebrovascular accident (CVA) Deep vein thrombosis (DVT) Father , Age 68 Myocardial Infarction Cerebrovascular accident (CVA) Sisters Myocardial Infarction Alzheimer's disease Crohn's disease Brothers Cerebrovascular accident (CVA) Son Ulcerative colitis Hemorrhagic stroke Social History Smoking Status: Unknown if ever smoked Alcohol Intake Frequency: does not drink Substance Use: does not use Exam Narrative Narrative: Narrative: General Limitations: no limitations General appearance: Present alert and in distress (Uncomfortable appearing but nontoxic) Head Head: Present atraumatic and normocephalic Eye Eye: Present normal appearance and EOMI ENT ENT: Present normal exam and mucous membranes moist Neck Neck: Present normal inspection and full ROM Chest Chest: Present normal inspection and symmetric chest wall rise Respiratory Respiratory: Present normal lung sounds bilaterally Cardiovascular Cardiovascular: Present normal rhythm and tachycardia Adbominal Abdominal: Present soft; Absent tenderness Extremities Extremities: Present normal inspection and full ROM Neurological Neurological: Present alert, oriented X3 and normal gait Psychiatric Psychiatric: Present normal affect and normal mood Skin Skin: Present warm (WNL) and dry Course Vital Signs Vital signs: Vital Signs Temperature 99.0 F 02/22/21 09:34 Pulse Rate 124 H 02/22/21 09:34 Respiratory Rate 16 02/22/21 09:34 Blood Pressure 117/71 02/22/21 09:34 Pulse Oximetry (%) 86 L 02/22/21 09:34 Temperature 99.0 F 02/22/21 09:34 Pulse Rate 113 H 02/22/21 16:21 Respiratory Rate 23 H 02/22/21 16:21 Blood Pressure 95/51 02/22/21 16:21 Pulse Oximetry (%) 99 02/22/21 16:21 MDM MDM Narrative Medical decision making narrative: Narrative: Patient with symptoms consistent with sepsis likely secondary to UTI. Broad- spectrum antibiotics initiated. She was initially thought to be in SVT, attem pted cardioversion with adenosine revealing atrial fibrillation with rapid ventricular response. She was started on Cardizem drip and given a dose of Lovenox. Due to antibiotic allergies, she was given gentamicin for UTI. She was admitted for further care and accepted by the hospitalist Lab Data Result diagrams: 02/22/21 10:29 02/22/21 10:29 Labs: Lab Results 02/22/21 02/22/21 02/22/21 Range/Units 10:29 10:29 10:29 WBC 14.2 H (4.5-11.0) K/mcL RBC 4.27 (3.59-5.38) M/mcL Hgb 13.4 (11.2-15.7) g/dL Hct 41.6 (34.1-44.9) % MCV 97.4 (80.0-100.0) fL MCH 31.4 (26.0-34.0) pg MCHC 32.2 (31.0-36.0) g/dL RDW 15.0 H (11.5-14.5) % Plt Count 183 (140-440) K/mcL MPV 9.0 (7.4-10.4) fL Seg Neutrophils % 62 (38-78) % Band Neutrophils % 25 H (0-10) % Lymphocytes % 12 L (15-49) % Monocytes % (Manual) 1 (1-12) % Platelet Estimate Normal (Normal) RBC Morphology Normal (Normal) VBG Lactic Acid 2.7 H (0.5-2.0) mmol/L Sodium 140 (133-145) mmol/L Potassium 2.8 L* (3.3-5.1) mmol/L Chloride 103 (96-108) mmol/L Carbon Dioxide 24 (22-30) mmol/L Anion Gap 13.0 (8.0-16.0) BUN 22 (8-23) mg/dL Creatinine 1.3 H (0.6-1.1) mg/dL GFR Calculation 40 Glucose 102 (70-105) mg/dL Calcium 9.1 (8.6-10.4) mg/dL Total Bilirubin 0.6 (0.1-1.0) mg/dL AST 20 (<32) U/L ALT 18 (<40) U/L Alkaline Phosphatase 71 (39-117) U/L Total Protein 6.8 (5.9-8.4) gm/dL Albumin 4.1 (3.2-5.2) gm/dL Globulin 2.7 (2.2-3.7) gm/dL Albumin/Globulin Ratio 1.5 (1.0-2.3) ED POC Tests ED POC Tests: ED - SARS Antigen Negative EKG Data EKG #1: EKG attestation: Yes I reviewed and interpreted this EKG. EKG results narrative: Narrow complex tachycardia at a rate of 167, regular, QTC 501, no acute appearing ST-T changes. Abnormal EKG. EKG #2: EKG attestation: Yes I reviewed and interpreted this EKG. EKG results narrative: Atrial fibrillation at a rate of 161. This. QTC 493. No acute ST-T changes. Abnormal EKG CC TIME Critical Care Time Critical Care Time: Yes Attestation: Approximately 45 minutes of critical care time was used in order to assess and manage the high probability of imminent or life threatening deterioration to atrial fibrillation with rapid ventricular response, sepsis with UTI which required my highest level of preparedness and interventions with frequent patient assessments. This time is excluding time spent on separately billable procedures. Discharge Plan Patient/Caregiver Discharge Instructions Pt seen by TRANSITION ASSISTANT/PA only: No Clinical Impression: Atrial fibrillation with rapid ventricular response, Sepsis, Urinary tract infection, Acute hypokalemia Patient Disposition: Xfer As Inpt ([facility]) Follow up with: Joanne Gould MD [Primary Care Provider] - Prescriptions: No Action fluoxetine [Prozac] 20 mg capsule 20 mg PO QDAY RF: 0 omeprazole 20 mg capsule,delayed release(DR/EC) 20 mg PO QDAY RF: 0 furosemide 20 mg tablet 60 mg PO QDAY RF: 0 potassium chloride 10 mEq tablet extended release 20 meq PO BID RF: 0 atorvastatin 20 MG tablet 20 mg PO HS RF: 0 hydrocodone-acetaminophen 1 TAB tablet 1 tab PO Q4-6HP PRN (Reason: Pain) RF: 0 carvedilol 25 mg tablet 25 mg PO BID RF: 0 prednisone 5 mg tablet 5 mg PO DAILY RF: 0 calcitriol 0.25 mcg Capsule 0.25 mcg PO 3XW RF: 0 metoclopramide HCl 10 mg tablet 10 mg PO BID PRN (Reason: Nausea) RF: 0 nitrofurantoin monohyd/m-cryst 100 mg capsule 100 mg PO BID RF: 0 levofloxacin 750 mg tablet 750 mg PO QDAY Qty: 1 RF: 0
[2021-02-22 17:35] LABS: Appearance,Urine HAZY (Clear); Bilirubin,Urine Negative (Negative); Color,Urine YELLOW; Culture Indicated,Urine No; Glucose,Urine (UA) Negative (Negative); Ketones,Urine Negative (Negative); Leukocyte Esterase,Urine 500 /uL (Negative); Mucus,Urine FEW /hpf; Nitrate,Urine Negative (Negative); Protein,Urine 30 mg/dL (Negative); Specific Gravity,Urine 1.014 (1.000-1.035); Urine Blood Negative (Negative); Urine Hyaline Cast 4 /lph (0-2); Urine RBC 3 /hpf (0-3); Urine Squamous Epithelial Cell 9 /hpf (0-4); Urine Transitional Epi Cells 2 /hpf (0-2); Urine WBC 81 /hpf (0-4); Urobilinogen,Urine Negative
[2021-02-22] MEDS ORDERED: ONDANSETRON 4 MG/2 ML VIAL IV PRN (19:25)
[2021-02-22] MEDS ORDERED: POTASSIUM CHLORIDE 40 MEQ in DEXTROSE 5% IN WATER 500 ML IV ONE (19:25)
[2021-02-22] MEDS ORDERED: SENNOSIDES 1 TABLET PO PRN (19:25)
[2021-02-22] MEDS ORDERED: ACETAMINOPHEN 325 MG TABLET PO PRN (19:25)
[2021-02-22] MEDS ORDERED: HYDROcodone/APAP 10/325MG TABLET PO PRN (19:25)
[2021-02-22] MEDS ORDERED: ATORVASTATIN 20 MG TABLET PO SCH (21:00)
[2021-02-22] MEDS: PIPERACILLIN SODIUM/TAZOBACTAM 3.375 GM in DEXTROSE 5% IN WATER 50 ML IV SCH (21:21)
[2021-02-22] MEDS: LACTATED RINGERS 1,000 ML IV SCH (21:28)
[2021-02-22] MEDS: METOCLOPRAMIDE 10 MG/2 ML VIAL IV SCH (22:20)
[2021-02-22] MEDS: 0.9 % SODIUM CHLORIDE 10 ML SYRINGE IV SCH (22:22)
[2021-02-22] MEDS: DOCUSATE SODIUM 100 MG CAPSULE PO SCH (22:30)
[2021-02-23] MEDS: METOCLOPRAMIDE 10 MG/2 ML VIAL IV SCH ×2 (00:21→05:44)
[2021-02-23] MEDS ORDERED: DILTIAZEM 125 MG in DEXTROSE 5% IN WATER 100 ML IV SCH (03:00)
[2021-02-23] MEDS: LACTATED RINGERS 1,000 ML IV SCH ×4 (05:59→17:43)
[2021-02-23] MEDS: PIPERACILLIN SODIUM/TAZOBACTAM 3.375 GM in DEXTROSE 5% IN WATER 50 ML IV SCH ×3 (06:59→21:38)
[2021-02-23] MEDS: 0.9 % SODIUM CHLORIDE 10 ML SYRINGE IV SCH ×2 (06:59→21:39)
[2021-02-23 07:30] LABS: Basophils # (Auto) 0.03 K/mcL (0.00-0.30); Basophils % (Auto) 0.2 % (0.0-2.0); Eosinophils % (Auto) 1.5 % (0.0-7.0); Hematocrit 31.8 % (34.1-44.9); Lymphocytes # (Auto) 3.56 K/mcL (1.50-4.80); Lymphocytes % (Auto) 26.5 % (15.5-49.0); Mean Cell Volume 99.7 fL (80.0-100.0); Mean Corpuscular HGB Conc 31.4 g/dL (31.0-36.0); Mean Platelet Volume 9.1 fL (7.4-10.4); Monocytes # (Auto) 0.74 K/mcL (0.10-0.90); Monocytes % (Auto) 5.5 % (1.0-12.0); Neutrophils % (Auto) 66.3 % (38.0-78.0); Platelet Count 156 K/mcL (140-440); RBC 3.19 M/mcL (3.59-5.38); Red Cell Distribution Width 15.7 % (11.5-14.5); WBC 13.4 K/mcL (4.5-11.0)
[2021-02-23 07:58] LABS: Phosphorous 2.8 mg/dL (2.5-4.5)
[2021-02-23 08:00] LABS: ALT/SGPT 15 U/L (<40); AST/SGOT 20 U/L (<32); Albumin/Globulin Ratio 1.3 (1.0-2.3); Alkaline Phosphatase 59 U/L (39-117); Bilirubin,Total 0.9 mg/dL (0.1-1.0); Blood Urea Nitrogen 23 mg/dL (8-23); Calcium 8.2 mg/dL (8.6-10.4); Carbon Dioxide 22 mmol/L (22-30); Chloride 105 mmol/L (96-108); Globulin 2.3 gm/dL (2.2-3.7); Glomerular Filtration Rate 36; Glucose 82 mg/dL (70-105)
[2021-02-23] MEDS ORDERED: CARVEDILOL 12.5 MG TABLET PO SCH ×2 (08:00→17:30)
[2021-02-23] MEDS ORDERED: RIVAROXABAN 20 MG TABLET PO SCH (09:00)
[2021-02-23] MEDS ORDERED: FLUoxetine HCL 20 MG CAPSULE PO SCH (09:00)
[2021-02-23] MEDS ORDERED: OMEPRAZOLE 20 MG CAPSULE PO SCH (09:00)
[2021-02-23] MEDS ORDERED: predniSONE 5 MG TABLET PO SCH (09:00)
[2021-02-23] MEDS: DOCUSATE SODIUM 100 MG CAPSULE PO SCH ×2 (09:20→21:40)
[2021-02-23] MEDS ORDERED: METOCLOPRAMIDE 10 MG/2 ML VIAL IV PRN ×3 (09:21→14:06)
--- NOTE | 2021-02-23 09:35 | Internal Med Progress Note ---
SUBJECTIVE Subjective Patient information: Note initiated : 02/23/21 at 9:30 am Service Date, if different from initiated Date: [] Patient: Candy Martinez 75 y/o F admitted on 02/22/21 for n/v. Chief Complaint: [Pyelonephritis, atrial fibrillation] Interval history: History of present illness: Ms. Martinez is a 75 year old F history of lupus arthritis and CAD, presenting with 3 months history of intermittent urinary symptoms including dysuria and change in urinary frequency, as well as 2-day history of nausea and vomiting. Over the past 3 months, she has intermittent urinary symptoms including dysuria and change in urinary frequency. She also have associated fever and chills over the same. Time. She also started to have nausea and vomiting since yesterday. As such, she finally decided to presented to her PCP office for further evaluations. The diagnosis of urinary tract infections was made and she was being prescribed with oral M acrobid. She presented to our ED today due to worsening of her symptoms. She is also committing of general body weakness. Vital signs significant for tachycardia with heart rate up to 160 as well as tachypnea with rate of breathing up to the 40s. Blood pressure was also low as 80s over 40s. She was also found to be in atrial fibrillation's. Labs significant for leukocytosis with WBC 14.2. Serum potassium level 2.8. Serum creatinine level 1.3 with baseline 1.1. Serum lactic acid of 2.7. Urine analysis pending. IV fluid boluses given in ED. 02/23: Low grade fever 37.7 this morning. Blood and urine cultures no growth to date. Diltiazem drip was off. Sinus rhythm currently. Denies dysuria. Denies pelvic pain. Denies chest pain or heart racing sensation. c/o SOB. Constitutional Vitals: Vital Signs Temp Pulse Resp BP Pulse Ox 37.7 C H 92 H 20 110/59 95 02/23/21 08:02 02/23/21 09:01 02/23/21 09:01 02/23/21 09:01 02/23/21 09:01 Period Temp Pulse Resp BP Sys/Conroy Pulse Ox Last 24 Hr 36.0 C-37.7 C 74-174 15-45 80-132/41-99 83-100 Intake and Output 02/22/21 02/23/21 02/23/21 21:59 05:59 13:59 Intake Total 2300 110 1290 Output Total 500 Balance 2300 -390 1290 Weight 59.194 kg Intake & Output: Intake & Output 02/22/21 02/23/21 02/23/21 21:59 05:59 13:59 Intake Total 2300 110 1290 Output Total 500 Balance 2300 -390 1290 Weight 59.194 kg Intake: Nourishment/Supplement quantity 60 (ml) IV 2300 50 1050 Sodium Chloride 0.9% 1,000 ml @ 2000 Wide Open IV B[facility] ONE Rx#: [id number] Cardizem 125 mg In Dextrose 5% 40 in Water 100 ml @ 5 MG/HR 5 mls /hr IV Q12H [facility] Rx#:[id number] Lactated Ringers 1,000 ml @ 100 1000 mls/hr IV .Q10H [facility] Rx#: [id number] Zosyn 3.375 gm In Dextrose 5% 50 50 in Water 50 ml @ 100 mls/hr IV Q8H [facility] Rx#:[id number] Potassium Chloride 20 Meq In 260 Dextrose 5% in Water 250 ml @ 130 mls/hr IV ONCE ONE Rx#: [id number] Oral 0 240 Output: Void Amount 300 Urine/Stool Mix 200 Other: Percent of Meal Consumed 25% Feeding Ability Independent Nourishment/Supplement name CHICKEN SOUP WITH CRACKERS Urine Appearance Clear Urine Color Dark Yellow Urine Odor Normal Stool Size Small Stool Color Brown Stool Consistency Soft Formed # Voids 1 # Bowel Movements 1 1 General appearance: cooperative and no acute distress Head Head exam: Present atraumatic and normocephalic Eye Eye exam: Present EOMI and PERRL ENT ENT exam: Present mucous membranes moist, normal exam and normal external ear exam Neck Neck exam: Present normal inspection; Absent lymphadenopathy, tenderness and thyromegaly Respiratory Respiratory exam: Absent accessory muscle use, respiratory distress and wheezes Cardiovascular Cardiovascular exam: Present normal rate and rhythm; Absent JVD GI/Abdominal GI/Abdominal exam: Present normal bowel sounds and soft; Absent organomegaly and tenderness Extremities Exam Extremities exam: Present full ROM, normal capillary refill and normal inspection; Absent tenderness Neurological Exam Neurological exam: Present alert, CN II-XII intact and oriented X3; Absent motor sensory deficit Psychiatric Psychiatric exam: Present normal affect and normal mood; Absent anxious and depressed Skin Skin exam: Present dry and intact OBJ DATA Labs CBC & Chem 7: 02/23/21 05:57 02/23/21 05:57 Labs: Abnormal Lab Results 02/23/21 02/23/21 02/22/21 05:57 05:57 16:15 WBC 13.4 H RBC 3.19 L Hgb 10.0 L Hct 31.8 L RDW 15.7 H Band Neutrophils % Lymphocytes % Absolute Neutrophils 8.88 H VBG Lactic Acid Potassium Creatinine 1.4 H Calcium 8.2 L Total Protein 5.3 L Albumin 3.0 L Procalcitonin Urine Appearance Hazy A Urine Protein 30 A Ur Leukocyte Esterase 500 A Urine WBC 81 H Ur Squamous Epith Cells 9 H Hyaline Casts 4 H Urine Mucus Few A 02/22/21 02/22/21 02/22/21 10:30 10:29 10:29 WBC RBC Hgb Hct RDW Band Neutrophils % Lymphocytes % Absolute Neutrophils VBG Lactic Acid 2.7 H Potassium 2.8 L* Creatinine 1.3 H Calcium Total Protein Albumin Procalcitonin 3.91 H Urine Appearance Urine Protein Ur Leukocyte Esterase Urine WBC Ur Squamous Epith Cells Hyaline Casts Urine Mucus 02/22/21 10:29 WBC 14.2 H RBC Hgb Hct RDW 15.0 H Band Neutrophils % 25 H Lymphocytes % 12 L Absolute Neutrophils VBG Lactic Acid Potassium Creatinine Calcium Total Protein Albumin Procalcitonin Urine Appearance Urine Protein Ur Leukocyte Esterase Urine WBC Ur Squamous Epith Cells Hyaline Casts Urine Mucus Meds: Medications Acetaminophen (Acetaminophen 325 Mg Tablet) 650 mg PO Q4-6HP PRN; Protocol PRN Reason: Per Pain Protocol/Fever > 101 Last Admin: 02/23/21 05:43 Dose: 650 mg Documented by: Hydrocodone Bitart/Acetaminophen (Hydrocodone/Apap 10/325mg Tablet) 1 tab PO Q4-6HP PRN; Protocol PRN Reason: Pain Last Admin: 02/22/21 20:55 Dose: 1 tab Documented by: Aspirin (Aspirin 81 Mg Tab.Chew) 81 mg PO DAILY [facility] Atorvastatin Calcium (Atorvastatin 20 Mg Tablet) 20 mg PO HS [facility] Last Admin: 02/22/21 22:22 Dose: 20 mg Documented by: Calcitriol (Calcitriol 0.25 Mcg Capsule) 0.25 mcg PO 3XW [facility] Carvedilol (Carvedilol 12.5 Mg Tablet) 25 mg PO BIDCC [facility] Last Admin: 02/23/21 09:21 Dose: 25 mg Documented by: Docusate Sodium (Docusate Sodium 100 Mg Capsule) 100 mg PO BID [facility] Last Admin: 02/23/21 09:20 Dose: 100 mg Documented by: Fluoxetine HCl (Fluoxetine Hcl 20 Mg Capsule) 20 mg PO QDAY [facility] Last Admin: 02/23/21 09:21 Dose: 20 mg Documented by: Diltiazem HCl 125 mg/ Dextrose 125 mls @ 5 mls/hr IV Q12H [facility]; Protocol Last Admin: 02/23/21 05:42 Dose: Not Given Documented by: Potassium Chloride 20 meq/ (Dextrose) 260 mls @ 130 mls/hr IV UD PRN PRN Reason: hypokalemia Lactated Ringer's (Lactated Ringers) 1,000 mls @ 100 mls/hr IV .Q10H [facility] Last Admin: 02/23/21 07:37 Dose: 100 mls/hr Documented by: Piperacillin Sod/Tazobactam (Sod 3.375 gm/ Dextrose) 50 mls @ 100 mls/hr IV Q8H [facility]; Protocol Last Infusion: 02/23/21 07:34 Dose: Infused Documented by: Metoclopramide HCl (Metoclopramide 10 Mg/2 Ml Vial) 10 mg IV Q6 PRN PRN Reason: Nausea Morphine Sulfate (Morphine 2 Mg/Ml Vial) 2 mg IV Q4HP PRN; Protocol PRN Reason: Per Pain Protocol Omeprazole (Omeprazole 20 Mg Capsule) 20 mg PO QDAY [facility] Last Admin: 02/23/21 09:20 Dose: 20 mg Documented by: Ondansetron HCl (Ondansetron 4 Mg/2 Ml Vial) 4 mg IV Q4-6HP PRN; Protocol PRN Reason: Nausea And Vomiting Prednisone (Prednisone 5 Mg Tablet) 5 mg PO DAILY [facility] Last Admin: 02/23/21 09:21 Dose: 5 mg Documented by: Rivaroxaban (Rivaroxaban 20 Mg Tablet) 20 mg PO DAILY [facility] Last Admin: 02/23/21 09:22 Dose: 20 mg Documented by: Senna (Sennosides 1 Tablet) 1 tab PO HSP PRN PRN Reason: Constipation Sodium Chloride (0.9 % Sodium Chloride 10 Ml Syringe) 10 ml IV Q8 [facility] Last Admin: 02/23/21 06:59 Dose: 10 ml Documented by: A/P Assessment and plan (1) Clinical sepsis: Status: Acute (2) Pyelonephritis: Status: Acute (3) Chronic kidney disease (CKD) stage G3b/A2, moderately decreased glomerular filtration rate (GFR) between 30-44 mL/min/1.73 square meter and albuminuria creatinine ratio between 30-299 mg/g: Status: Chronic (4) Lupus arthritis: Status: Chronic (5) CAD (coronary artery disease): Status: Acute (6) Stage 1 acute kidney injury: Status: Acute (7) Hypokalemia: Status: Acute (8) Atrial fibrillation: Status: Acute Narrative A/P Narrative: Assessment and plan: 1. Pyelonephritis with clinical sepsis: Transfer to inpatient PCU with telemetry Serial lactic acid Blood culture, no growth to date Urine culture, no growth to date CBC with auto differential in the morning to trend WBC Tylenol as needed fever Zosyn (does not use cephalosporin such as Rocephin due to allergy profile) Status post IV fluid boluses given in the ED, to be followed by LR at 100 cc/h #2 Atrial fibrillations: Currently normal sinus rhythm [id number] score of 5, will initiate oral anticoagulation therapy with Xarelto Continue oral Coreg from home regiment Diltiazem drip is currently off 2D echocardiogram, results pending 3. Stage I acute kidney injury in the context of chronic kidney disease stage III: Avoid nephrotoxic agents Status post IV fluid boluses given in the ED, to be followed by LR at 100 cc/h CMP in the morning to trend kidney functions 4. Hypokalemia: RESOLVED Likely associated with nausea vomiting secondary to pyelonephritis Zofran IV as needed nausea vomiting Reglan IV as needed nausea vomiting Potassium replacement as per protocol CMP in the morning to trend serum potassium level and will repeat replacement as needed Also check serum magnesium level and will replace if needed 5. History of lupus arthritis: No code as needed moderate pain Morphine IV as needed severe pain Continue prednisone from home regiment #6 history of CAD: Continue aspirin from home regiment Continue statin from home regiment GI prophylaxis: Continue oral PPI from home regiment DVT prophylaxis: Xarelto CODE STATUS: Full code Prognosis: Guarded Dispositions: Inpatient ICU--->transfer to PCU Critical care time: 30min Time Spent With Patient Time: Total time spent is greater than 50% in coordination of care (as docum ented) at patient's floor/unit and/or counseling patient: QUALITY VTE Deep Vein Thrombosis/Pulmonary Embolism Present on Admission: No
[2021-02-23] MEDS ORDERED: POTASSIUM CHLORIDE 20 MEQ in DEXTROSE 5% IN WATER 250 ML IV PRN ×2 (09:47→14:06)
[2021-02-23] MEDS ORDERED: morphine 2 MG/ML VIAL IV PRN ×2 (09:47→14:06)
[2021-02-23] MEDS ORDERED: ONDANSETRON 4 MG/2 ML VIAL IV PRN ×2 (09:47→14:06)
[2021-02-23] MEDS ORDERED: LACTATED RINGERS 1,000 ML IV SCH (09:47)
[2021-02-23] MEDS ORDERED: ACETAMINOPHEN 325 MG TABLET PO PRN ×2 (09:47→14:06)
[2021-02-23] MEDS ORDERED: SENNOSIDES 1 TABLET PO PRN ×2 (09:47→14:06)
[2021-02-23] MEDS ORDERED: HYDROcodone/APAP 10/325MG TABLET PO PRN (09:47)
[2021-02-23] MEDS ORDERED: 0.9 % SODIUM CHLORIDE 10 ML SYRINGE IV SCH (14:00)
[2021-02-23] MEDS ORDERED: PIPERACILLIN SODIUM/TAZOBACTAM 3.375 GM in DEXTROSE 5% IN WATER 50 ML IV SCH (14:00)
[2021-02-23] MEDS: CARVEDILOL 12.5 MG TABLET PO SCH (17:04)
[2021-02-23] MEDS ORDERED: DOCUSATE SODIUM 100 MG CAPSULE PO SCH (21:00)
[2021-02-23] MEDS ORDERED: ATORVASTATIN 20 MG TABLET PO SCH ×2 (21:00)
[2021-02-23] MEDS ORDERED: IPRATROPIUM/ALBUTEROL 3 ML AMPUL.NEB NEB ONE (21:04)
[2021-02-23] MEDS: IPRATROPIUM/ALBUTEROL 3 ML AMPUL.NEB NEB PRN (21:06)
[2021-02-23] MEDS: HYDROcodone/APAP 10/325MG TABLET PO PRN (21:37)
[2021-02-24] MEDS: LACTATED RINGERS 1,000 ML IV SCH (04:09)
[2021-02-24] MEDS: PIPERACILLIN SODIUM/TAZOBACTAM 3.375 GM in DEXTROSE 5% IN WATER 50 ML IV SCH ×3 (05:44→21:15)
[2021-02-24] MEDS: 0.9 % SODIUM CHLORIDE 10 ML SYRINGE IV SCH ×3 (05:45→21:16)
[2021-02-24 06:59] LABS: Basophils # (Auto) 0.02 K/mcL (0.00-0.30); Basophils % (Auto) 0.2 % (0.0-2.0); Eosinophils # (Auto) 0.15 K/mcL (0.00-0.70); Eosinophils % (Auto) 1.8 % (0.0-7.0); Hemoglobin 9.3 g/dL (11.2-15.7); Lymphocytes # (Auto) 2.64 K/mcL (1.50-4.80); Lymphocytes % (Auto) 31.5 % (15.5-49.0); Mean Cell Volume 101.4 fL (80.0-100.0); Mean Platelet Volume 9.3 fL (7.4-10.4); Monocytes # (Auto) 0.47 K/mcL (0.10-0.90); Monocytes % (Auto) 5.6 % (1.0-12.0); Neutrophils % (Auto) 60.9 % (38.0-78.0); Platelet Count 142 K/mcL (140-440); RBC 2.96 M/mcL (3.59-5.38); Red Cell Distribution Width 15.7 % (11.5-14.5); WBC 8.4 K/mcL (4.5-11.0)
[2021-02-24] MEDS: IPRATROPIUM/ALBUTEROL 3 ML AMPUL.NEB NEB PRN (07:21)
[2021-02-24 07:43] LABS: Phosphorous 2.2 mg/dL (2.5-4.5)
[2021-02-24 07:46] LABS: ALT/SGPT 18 U/L (<40); AST/SGOT 18 U/L (<32); Albumin 2.8 gm/dL (3.2-5.2); Albumin/Globulin Ratio 1.2 (1.0-2.3); Alkaline Phosphatase 58 U/L (39-117); Bilirubin,Total 0.5 mg/dL (0.1-1.0); Blood Urea Nitrogen 13 mg/dL (8-23); Calcium 8.5 mg/dL (8.6-10.4); Carbon Dioxide 20 mmol/L (22-30); Chloride 109 mmol/L (96-108); Globulin 2.4 gm/dL (2.2-3.7); Glomerular Filtration Rate 44; Glucose 82 mg/dL (70-105)
[2021-02-24] MEDS: CARVEDILOL 12.5 MG TABLET PO SCH ×2 (08:00→17:24)
[2021-02-24] MEDS ORDERED: ASPIRIN 81 MG TAB.CHEW PO SCH ×3 (09:00)
[2021-02-24] MEDS ORDERED: OMEPRAZOLE 20 MG CAPSULE PO SCH ×2 (09:00)
[2021-02-24] MEDS ORDERED: RIVAROXABAN 20 MG TABLET PO SCH ×2 (09:00)
[2021-02-24] MEDS ORDERED: FLUoxetine HCL 20 MG CAPSULE PO SCH ×2 (09:00)
[2021-02-24] MEDS ORDERED: predniSONE 5 MG TABLET PO SCH ×2 (09:00)
[2021-02-24] MEDS: HYDROcodone/APAP 10/325MG TABLET PO PRN ×3 (09:13→21:14)
[2021-02-24] MEDS ORDERED: ASPIRIN 81 MG TAB.CHEW CHEWED ONE (09:23)
[2021-02-24] MEDS ORDERED: IBUPROFEN 800 MG TABLET PO PRN (09:26)
[2021-02-24] MEDS ORDERED: morphine 2 MG/ML VIAL IV PRN ×2 (09:26→10:32)
[2021-02-24] MEDS: NITROGLYCERIN 0.4 MG TAB.SUBL SL PRN ×2 (09:28→09:35)
[2021-02-24] MEDS ORDERED: NITROGLYCERIN 0.4 MG TAB.SUBL SL ONE (09:32)
[2021-02-24] MEDS: DOCUSATE SODIUM 100 MG CAPSULE PO SCH ×2 (09:41→21:14)
--- NOTE | 2021-02-24 09:41 | Internal Med Progress Note ---
SUBJECTIVE Subjective Patient information: Note initiated : 02/24/21 at 9:33 am Service Date, if different from initiated Date: [] Patient: Candy Martinez a 75 y/o F admitted on 02/22/21 for n/v. Chief Complaint: [pyelonephritis] Interval history: History of present illness: Ms. Martinez is a 75 year old F history of lupus arthritis and CAD, presenting with 3 months history of intermittent urinary symptoms including dysuria and change in urinary frequency, as well as 2-day history of nausea and vomiting. Over the past 3 months, she has intermittent urinary symptoms including dysuria and change in urinary frequency. She also have associated fever and chills over the same. Time. She also started to have nausea and vomiting since yesterday. As such, she finally decided to presented to her PCP office for further evaluations. The diagnosis of urinary tract infections was made and she was being prescribed with oral Macrobid. She presented to our ED today due to worsening of her symptoms. She is also committing of general body weakness. Vital signs significant for tachycardia with heart rate up to 160 as well as tachypnea with rate of breathing up to the 40s. Blood pressure was also low as 80s over 40s. She was also found to be in atrial fibrillation's. Labs significant for leukocytosis with WBC 14.2. Serum potassium level 2.8. Serum creatinine level 1.3 with baseline 1.1. Serum lactic acid of 2.7. Urine analysis pending. IV fluid boluses given in ED. 02/23: Low grade fever 37.7 this morning. Blood and urine cultures no growth to date. Diltiazem drip was off. Sinus rhythm currently. Denies dysuria. Denies pelvic p ain. Denies chest pain or heart racing sensation. c/o SOB. 02/24: Afebrile overnight. Blood culture no growth to date; Urine culture grew Strep (beta) gr. G. Sinus rhythm currently. c/o 09/24 sharp chest pain radiates from mid-sternal region to right shoulder. Denies SOB. Denies fever or chills. Constitutional Vitals: Vital Signs Temp Pulse Resp BP Pulse Ox 37.2 C 92 H 16 145/75 95 02/24/21 07:28 02/24/21 09:22 02/24/21 07:28 02/24/21 09:30 02/24/21 09:30 Period Temp Pulse Resp BP Sys/Conroy Pulse Ox Last 24 Hr 36.7 C-37.2 C 68-100 16-26 101-155/45-106 90-99 Intake and Output 02/23/21 02/24/21 02/24/21 21:59 05:59 13:59 Intake Total 1450 1450 50 Output Total 675 2 Balance 775 1448 50 Weight 65.998 kg Intake & Output: Intake & Output 02/23/21 02/24/21 02/24/21 21:59 05:59 13:59 Intake Total 1450 1450 50 Output Total 675 2 Balance 775 1448 50 Weight 65.998 kg Intake: IV 1050 1050 50 Lactated Ringers 1,000 ml @ 100 1000 1000 mls/hr IV .Q10H [facility] Rx#: [id number] Zosyn 3.375 gm In Dextrose 5% 50 50 50 in Water 50 ml @ 100 mls/hr IV Q8H [facility] Rx#:[id number] Oral 400 400 Output: Void Amount 675 # of times incontinent of urine 2 Other: Meal Dinner Percent of Meal Consumed 75% Feeding Ability Independent Stool Size Small Moderate Large Stool Color Brown Brown Brown Green Stool Consistency Loose Loose # Voids 1 1 # Bowel Movements 1 2 # of times incontinent of 1 1 Bowels General appearance: cooperative, no acute distress and severe distress Head Head exam: Present atraumatic and normocephalic Eye Eye exam: Present EOMI and PERRL ENT ENT exam: Present mucous membranes moist, normal exam and normal external ear e xam Neck Neck exam: Present normal inspection; Absent lymphadenopathy, tenderness and thyromegaly Respiratory Respiratory exam: Absent accessory muscle use, respiratory distress and wheezes Cardiovascular Cardiovascular exam: Present normal rate and rhythm; Absent JVD Additional comments: Mid-sternal chest wall tenderness GI/Abdominal GI/Abdominal exam: Present normal bowel sounds and soft; Absent organomegaly and tenderness Extremities Exam Extremities exam: Present full ROM, normal capillary refill and normal inspection; Absent tenderness Neurological Exam Neurological exam: Present alert, CN II-XII intact and oriented X3; Absent motor sensory deficit Psychiatric Psychiatric exam: Present normal affect and normal mood; Absent anxious and depressed Skin Skin exam: Present dry and intact OBJ DATA Labs CBC & Chem 7: 02/24/21 05:09 02/24/21 05:09 Labs: Abnormal Lab Results 02/24/21 02/24/21 02/24/21 05:09 05:09 05:09 WBC RBC 2.96 L Hgb 9.3 L Hct 30.0 L MCV 101.4 H RDW 15.7 H Band Neutrophils % Lymphocytes % Absolute Neutrophils VBG Lactic Acid Potassium Chloride 109 H Carbon Dioxide 20 L Creatinine 1.2 H Calcium 8.5 L Phosphorus 2.2 L Total Protein 5.2 L Albumin 2.8 L Procalcitonin Urine Appearance Urine Protein Ur Leukocyte Esterase Urine WBC Ur Squamous Epith Cells Hyaline Casts Urine Mucus 02/23/21 02/23/21 02/22/21 05:57 05:57 16:15 WBC 13.4 H RBC 3.19 L Hgb 10.0 L Hct 31.8 L MCV RDW 15.7 H Band Neutrophils % Lymphocytes % Absolute Neutrophils 8.88 H VBG Lactic Acid Potassium Chloride Carbon Dioxide Creatinine 1.4 H Calcium 8.2 L Phosphorus Total Protein 5.3 L Albumin 3.0 L Procalcitonin Urine Appearance Hazy A Urine Protein 30 A Ur Leukocyte Esterase 500 A Urine WBC 81 H Ur Squamous Epith Cells 9 H Hyaline Casts 4 H Urine Mucus Few A 02/22/21 02/22/21 02/22/21 10:30 10:29 10:29 WBC RBC Hgb Hct MCV RDW Band Neutrophils % Lymphocytes % Absolute Neutrophils VBG Lactic Acid 2.7 H Potassium 2.8 L* Chloride Carbon Dioxide Creatinine 1.3 H Calcium Phosphorus Total Protein Albumin Procalcitonin 3.91 H Urine Appearance Urine Protein Ur Leukocyte Esterase Urine WBC Ur Squamous Epith Cells Hyaline Casts Urine Mucus 02/22/21 10:29 WBC 14.2 H RBC Hgb Hct MCV RDW 15.0 H Band Neutrophils % 25 H Lymphocytes % 12 L Absolute Neutrophils VBG Lactic Acid Potassium Chloride Carbon Dioxide Creatinine Calcium Phosphorus Total Protein Albumin Procalcitonin Urine Appearance Urine Protein Ur Leukocyte Esterase Urine WBC Ur Squamous Epith Cells Hyaline Casts Urine Mucus Meds: Medications Acetaminophen (Acetaminophen 325 Mg Tablet) 650 mg PO Q4-6HP PRN; Protocol PRN Reason: Per Pain Protocol/Fever > 101 Hydrocodone Bitart/Acetaminophen (Hydrocodone/Apap 10/325mg Tablet) 1 tab PO Q4-6HP PRN; Protocol PRN Reason: Pain Last Admin: 02/24/21 09:13 Dose: 1 tab Documented by: Albuterol/Ipratropium (Ipratropium/Albuterol 3 Ml Ampul.Neb) 3 ml NEB Q4HP PRN PRN Reason: Shortness Of Breath Last Admin: 02/24/21 07:21 Dose: 3 ml Documented by: Aspirin (Aspirin 81 Mg Tab.Chew) 81 mg PO DAILY [facility] Last Admin: 02/24/21 08:01 Dose: 81 mg Documented by: Atorvastatin Calcium (Atorvastatin 20 Mg Tablet) 20 mg PO HS [facility] Last Admin: 02/23/21 21:38 Dose: 20 mg Documented by: Calcitriol (Calcitriol 0.25 Mcg Capsule) 0.25 mcg PO MoWeFr@0900 [facility] Carvedilol (Carvedilol 12.5 Mg Tablet) 25 mg PO BIDCC [facility] Last Admin: 02/24/21 08:00 Dose: 25 mg Documented by: Docusate Sodium (Docusate Sodium 100 Mg Capsule) 100 mg PO BID [facility] Last Admin: 02/23/21 21:40 Dose: Not Given Documented by: Fluoxetine HCl (Fluoxetine Hcl 20 Mg Capsule) 20 mg PO QDAY [facility] Last Admin: 02/24/21 08:02 Dose: 20 mg Documented by: Lactated Ringer's (Lactated Ringers) 1,000 mls @ 100 mls/hr IV .Q10H [facility] Last Admin: 02/24/21 04:09 Dose: 100 mls/hr Documented by: Piperacillin Sod/Tazobactam (Sod 3.375 gm/ Dextrose) 50 mls @ 100 mls/hr IV Q8H [facility]; Protocol Last Infusion: 02/24/21 07:24 Dose: Infused Documented by: Potassium Chloride 20 meq/ (Dextrose) 260 mls @ 130 mls/hr IV UD PRN PRN Reason: hypokalemia Ibuprofen (Ibuprofen 800 Mg Tablet) 800 mg PO TIDP PRN; Protocol PRN Reason: Per Pain Protocol Metoclopramide HCl (Metoclopramide 10 Mg/2 Ml Vial) 10 mg IV Q6 PRN PRN Reason: Nausea Morphine Sulfate (Morphine 2 Mg/Ml Vial) 2 mg IV Q4HP PRN; Protocol PRN Reason: Per Pain Protocol Morphine Sulfate (Morphine 2 Mg/Ml Vial) 2 mg IV Q4HP PRN; Protocol PRN Reason: Per Pain Protocol Nitroglycerin (Nitroglycerin 0.4 Mg Tab.Subl) 0.4 mg SL Q5M PRN PRN Reason: Chest Pain Last Admin: 02/24/21 09:28 Dose: 0.4 mg Documented by: Omeprazole (Omeprazole 20 Mg Capsule) 20 mg PO QDAY [facility] Last Admin: 02/24/21 08:01 Dose: 20 mg Documented by: Ondansetron HCl (Ondansetron 4 Mg/2 Ml Vial) 4 mg IV Q4-6HP PRN; Protocol PRN Reason: Nausea And Vomiting Prednisone (Prednisone 5 Mg Tablet) 5 mg PO DAILY [facility] Last Admin: 02/24/21 08:02 Dose: 5 mg Documented by: Rivaroxaban (Rivaroxaban 20 Mg Tablet) 20 mg PO DAILY [facility] Last Admin: 02/24/21 08:01 Dose: 20 mg Documented by: Senna (Sennosides 1 Tablet) 1 tab PO HSP PRN PRN Reason: Constipation Sodium Chloride (0.9 % Sodium Chloride 10 Ml Syringe) 10 ml IV Q8 [facility] Last Admin: 02/24/21 05:45 Dose: 10 ml Documented by: A/P Assessment and plan (1) Clinical sepsis: Status: Acute (2) Pyelonephritis: Status: Acute (3) Chronic kidney disease (CKD) stage G3b/A2, moderately decreased glomerular filtration rate (GFR) between 30-44 mL/min/1.73 square meter and albuminuria creatinine ratio between 30-299 mg/g: Status: Chronic (4) Lupus arthritis: Status: Chronic (5) CAD (coronary artery disease): Status: Acute (6) Stage 1 acute kidney injury: Status: Acute (7) Hypokalemia: Status: Acute (8) Atrial fibrillation: Status: Acute (9) Chest pain: Status: Acute Narrative A/P Narrative: Assessment and plan: 1. Pyelonephritis with clinical sepsis: Transfer to inpatient PCU telemetry for closer monitoring Serial lactic acid Blood culture, no growth to date Urine culture, Strep (beta) Gr. G CBC with auto differential in the morning to trend WBC Tylenol as needed fever Zosyn (does not use cephalosporin such as Rocephin due to allergy profile) for 5-7 days total course of therapy Saline lock #2 Atrial fibrillations: Currently normal sinus rhythm [id number] score of 5, will initiate oral anticoagulation therapy with Xarelto Continue oral Coreg from home regiment Diltiazem drip is currently off 2D echocardiogram, results pending 3. Stage I acute kidney injury in the context of chronic kidney disease stage III: Avoid nephrotoxic agents Saline lock CMP in the morning to trend kidney functions 4. Hypokalemia: RESOLVED Likely associated with nausea vomiting secondary to pyelonephritis Zofran IV as needed nausea vomiting Reglan IV as needed nausea vomiting Potassium replacement as per protocol CMP in the morning to trend serum potassium level and will repeat replacement as needed Also check serum magnesium level and will replace if needed 5. History of lupus arthritis: No code as needed moderate pain Morphine IV as needed severe pain Continue prednisone from home regiment #6 history of CAD: Continue aspirin from home regiment Continue statin from home regiment 7. Chest pain: DDx: ACS vs GI such as GERD vs MSK such as costochondritis Transfer to inpatient PCU telemetry for closer monitoring cbc CMP Serial Troponin CXR ECG NitroSTAT PRN chest pain Morphine IV PRN severe pain Ibuprofen PRN MSK pain GI prophylaxis: Continue oral PPI from home regiment DVT prophylaxis: Xarelto CODE STATUS: Full code Prognosis: Guarded Dispositions: Transfer to inpatient PCU w/ telemetry for closer monitoring Time Spent With Patient Time: Total time spent is greater than 50% in coordination of care (as documented) at patient's floor/unit and/or counseling patient: QUALITY VTE Deep Vein Thrombosis/Pulmonary Embolism Present on Admission: No
--- NOTE | 2021-02-24 09:46 | XRay Report ---
INDICATION: chest pain TECHNIQUE: AP portable semiupright chest x-ray COMPARISON: Previous chest x-rays dated 02/22/2021, 10/24/2020 FINDINGS: Lungs:No focal pulmonary parenchymal infiltrates. There is peribronchial thickening suggesting bronchitis or asthma. No focal abnormality. Heart, vascular:No significant cardiomegaly. Pulmonary vascularity is normal. No pulmonary edema or pulmonary congestion Mediastinum, nila:No mediastinal widening. No hilar mass Pleura:No pleural fluid. No pleural-based mass or calcification Skeletal:Negative. IMPRESSION: 1. No focal pulmonary parenchymal infiltrates 2. Probable peribronchial thickening suggests bronchitis or asthma Interpreted and Authenticated by: Bucky Saldana 02/24/21
[2021-02-24 10:05] LABS: Basophils # (Auto) 0.02 K/mcL (0.00-0.30); Basophils % (Auto) 0.2 % (0.0-2.0); Eosinophils # (Auto) 0.22 K/mcL (0.00-0.70); Eosinophils % (Auto) 2.3 % (0.0-7.0); Hematocrit 31.2 % (34.1-44.9); Hemoglobin 9.9 g/dL (11.2-15.7); Lymphocytes # (Auto) 2.01 K/mcL (1.50-4.80); Lymphocytes % (Auto) 20.9 % (15.5-49.0); Mean Corpuscular HGB Conc 31.7 g/dL (31.0-36.0); Mean Platelet Volume 8.9 fL (7.4-10.4); Monocytes % (Auto) 5.2 % (1.0-12.0); Neutrophils % (Auto) 71.4 % (38.0-78.0); Platelet Count 134 K/mcL (140-440); RBC 3.12 M/mcL (3.59-5.38); Red Cell Distribution Width 15.5 % (11.5-14.5); WBC 9.6 K/mcL (4.5-11.0)
[2021-02-24] MEDS ORDERED: NITROGLYCERIN 0.4 MG TAB.SUBL SL PRN (10:32)
[2021-02-24] MEDS ORDERED: ONDANSETRON 4 MG/2 ML VIAL IV PRN (10:32)
[2021-02-24] MEDS ORDERED: IPRATROPIUM/ALBUTEROL 3 ML AMPUL.NEB NEB PRN (10:32)
[2021-02-24] MEDS ORDERED: METOCLOPRAMIDE 10 MG/2 ML VIAL IV PRN (10:32)
[2021-02-24] MEDS ORDERED: SENNOSIDES 1 TABLET PO PRN (10:32)
[2021-02-24] MEDS ORDERED: ACETAMINOPHEN 325 MG TABLET PO PRN (10:32)
[2021-02-24] MEDS ORDERED: POTASSIUM CHLORIDE 20 MEQ in DEXTROSE 5% IN WATER 250 ML IV PRN (10:32)
[2021-02-24 11:02] LABS: Creatine Kinase MB 1.8 ng/mL (<3.7)
[2021-02-24 11:05] LABS: ALT/SGPT 19 U/L (<40); AST/SGOT 18 U/L (<32); Albumin 3.3 gm/dL (3.2-5.2); Albumin/Globulin Ratio 1.3 (1.0-2.3); Alkaline Phosphatase 62 U/L (39-117); Bilirubin,Total 0.5 mg/dL (0.1-1.0); Blood Urea Nitrogen 10 mg/dL (8-23); Calcium 8.6 mg/dL (8.6-10.4); Carbon Dioxide 20 mmol/L (22-30); Chloride 107 mmol/L (96-108); Creatine Kinase 38 U/L (24-170); Globulin 2.5 gm/dL (2.2-3.7); Glomerular Filtration Rate 44; Glucose 113 mg/dL (70-105)
[2021-02-24] MEDS: IBUPROFEN 800 MG TABLET PO PRN ×2 (12:25→19:24)
[2021-02-24] MEDS ORDERED: ATORVASTATIN 20 MG TABLET PO SCH (21:00)
[2021-02-25] MEDS: PIPERACILLIN SODIUM/TAZOBACTAM 3.375 GM in DEXTROSE 5% IN WATER 50 ML IV SCH ×3 (05:52→21:20)
[2021-02-25] MEDS: 0.9 % SODIUM CHLORIDE 10 ML SYRINGE IV SCH ×3 (05:53→21:20)
[2021-02-25 07:29] LABS: Basophils # (Auto) 0.05 K/mcL (0.00-0.30); Basophils % (Auto) 0.6 % (0.0-2.0); Eosinophils # (Auto) 0.23 K/mcL (0.00-0.70); Eosinophils % (Auto) 2.7 % (0.0-7.0); Hematocrit 32.4 % (34.1-44.9); Hemoglobin 9.7 g/dL (11.2-15.7); Lymphocytes # (Auto) 2.87 K/mcL (1.50-4.80); Lymphocytes % (Auto) 33.8 % (15.5-49.0); Mean Cell Volume 101.9 fL (80.0-100.0); Mean Corpuscular HGB Conc 29.9 g/dL (31.0-36.0); Mean Platelet Volume 8.9 fL (7.4-10.4); Monocytes % (Auto) 5.9 % (1.0-12.0); Platelet Count 166 K/mcL (140-440); RBC 3.18 M/mcL (3.59-5.38); Red Cell Distribution Width 15.1 % (11.5-14.5); WBC 8.5 K/mcL (4.5-11.0)
[2021-02-25 07:39] LABS: Phosphorous 3.4 mg/dL (2.5-4.5)
[2021-02-25 07:43] LABS: ALT/SGPT 15 U/L (<40); AST/SGOT 14 U/L (<32); Albumin/Globulin Ratio 1.2 (1.0-2.3); Alkaline Phosphatase 59 U/L (39-117); Bilirubin,Total 0.3 mg/dL (0.1-1.0); Blood Urea Nitrogen 10 mg/dL (8-23); Calcium 8.5 mg/dL (8.6-10.4); Carbon Dioxide 21 mmol/L (22-30); Chloride 107 mmol/L (96-108); Globulin 2.5 gm/dL (2.2-3.7); Glomerular Filtration Rate 44; Glucose 79 mg/dL (70-105)
[2021-02-25] MEDS ORDERED: CALCITRIOL 0.25 MCG CAPSULE PO SCH ×4 (09:00)
[2021-02-25] MEDS ORDERED: FLUoxetine HCL 20 MG CAPSULE PO SCH (09:00)
[2021-02-25] MEDS ORDERED: RIVAROXABAN 20 MG TABLET PO SCH (09:00)
[2021-02-25] MEDS ORDERED: predniSONE 5 MG TABLET PO SCH (09:00)
[2021-02-25] MEDS ORDERED: ASPIRIN 81 MG TAB.CHEW PO SCH (09:00)
[2021-02-25] MEDS ORDERED: OMEPRAZOLE 20 MG CAPSULE PO SCH (09:00)
--- NOTE | 2021-02-25 09:00 | EKG ---
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 Measurements Intervals [place] Rate: 167 P: 0 FL: 128 QRS: -6 QRSD: 90 T: 86 QT: 300 QTc: 501 Interpretive Statements Atrial fibrillation with rapid ventricular response LOW VOLTAGE THROUGHOUT NONSPECIFIC T ABNORMALITIES, LATERAL LEADS Electronically Signed On 02-25-2021 8:52:55 PDT by Bucky Arredondo M.D. /[email or web address]/[id number]
--- NOTE | 2021-02-25 09:00 | EKG ---
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 Measurements Intervals [place] Rate: 161 P: SD: QRS: -43 QRSD: 82 T: -58 QT: 301 QTc: 493 Interpretive Statements Atrial fibrillation with rapid V-rate Ventricular premature complex Low voltage, extremity and precordial leads Nonspecific T abnormalities, lateral leads Electronically Signed On 02-25-2021 8:53:33 PDT by Bucky Arredondo M.D. /[email or web address]/[id number]
--- NOTE | 2021-02-25 09:01 | EKG ---
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 Measurements Intervals [place] Rate: 87 P: 42 UT: 164 QRS: 34 QRSD: 78 T: QT: 363 QTc: 437 Interpretive Statements SINUS RHYTHM ATRIAL PREMATURE COMPLEX LOW VOLTAGE THROUGHOUT BORDERLINE T ABNORMALITIES, LATERAL LEADS Electronically Signed On 02-25-2021 8:55:31 PDT by Bucky Arredondo M.D. /store/[email or web address]/[id number]/[id number]
--- NOTE | 2021-02-25 09:07 | EKG ---
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
--- NOTE | 2021-02-25 09:09 | EKG ---
[facility] Test Date: 2021-02-24 Pat Name: Candy Martinez Department: ICU Room: 120C Gender: Female Paleologist: : 1945 Requested By: Michael Gusman Order Number: [id number] Reading MD: Daniel Benavidez Measurements Intervals [place] Rate: 79 P: 67 [place]: 164 QRS: 5 QRSD: 82 T: 10 QT: 388 QTc: 445 Interpretive Statements SINUS RHYTHM LOW VOLTAGE THROUGHOUT BORDERLINE T ABNORMALITIES, INFERIOR LEADS Unchanged from prior Electronically Signed On 02-25-2021 9:08:54 PDT by Daniel Benavidez /[email or web address]/[email or web address]/[id number]
[2021-02-25] MEDS: CARVEDILOL 12.5 MG TABLET PO SCH ×2 (09:55→16:57)
[2021-02-25] MEDS: DOCUSATE SODIUM 100 MG CAPSULE PO SCH ×2 (09:56→20:23)
[2021-02-25] MEDS ORDERED: IPRATROPIUM/ALBUTEROL 3 ML AMPUL.NEB NEB PRN (10:21)
[2021-02-25] MEDS ORDERED: SENNOSIDES 1 TABLET PO PRN (10:21)
[2021-02-25] MEDS ORDERED: morphine 2 MG/ML VIAL IV PRN (10:21)
[2021-02-25] MEDS ORDERED: ACETAMINOPHEN 325 MG TABLET PO PRN (10:21)
[2021-02-25] MEDS ORDERED: POTASSIUM CHLORIDE 20 MEQ in DEXTROSE 5% IN WATER 250 ML IV PRN (10:21)
[2021-02-25] MEDS ORDERED: IBUPROFEN 800 MG TABLET PO PRN (10:21)
[2021-02-25] MEDS ORDERED: METOCLOPRAMIDE 10 MG/2 ML VIAL IV PRN (10:21)
[2021-02-25] MEDS ORDERED: NITROGLYCERIN 0.4 MG TAB.SUBL SL PRN (10:21)
[2021-02-25] MEDS ORDERED: ONDANSETRON 4 MG/2 ML VIAL IV PRN (10:21)
[2021-02-25] MEDS: IPRATROPIUM/ALBUTEROL 3 ML AMPUL.NEB NEB PRN (10:22)
--- NOTE | 2021-02-25 10:27 | Internal Med Progress Note ---
SUBJECTIVE Subjective Patient information: Note initiated : 02/25/21 at 10:20 am Service Date, if different from initiated Date: [] Patient: Candy Martinez a 75 y/o F admitted on 02/22/21 for n/v. Chief Complaint: [pyelonephritis] Interval history: History of present illness: Ms. Martinez is a 75 year old F history of lupus arthritis and CAD, presenting with 3 months history of intermittent urinary symptoms including dysuria and change in urinary frequency, as well as 2-day history of nausea and vomiting. Over the past 3 months, she has intermittent urinary symptoms including dysuria and change in urinary frequency. She also have associated fever and chills over the same. Time. She also started to have nausea and vomiting since yesterday. As such, she finally decided to presented to her PCP office for further evaluations. The diagnosis of urinary tract infections was made and she was being prescribed with oral Macrobid. She presented to our ED today due to worsening of her symptoms. She is also committing of general body weakness. Vital signs significant for tachycardia with heart rate up to 160 as well as tachypnea with rate of breathing up to the 40s. Blood pressure was also low as 80s over 40s. She was also found to be in atrial fibrillation's. Labs significant for leukocytosis with WBC 14.2. Serum potassium level 2.8. Serum creatinine level 1.3 with baseline 1.1. Serum lactic acid of 2.7. Urine analysis pending. IV fluid boluses given in ED. 02/23: Low grade fever 37.7 this morning. Blood and urine cultures no growth to date. Diltiazem drip was off. Sinus rhythm currently. Denies dysuria. Denies pelvic pain. Denies chest pain or heart racing sensation. c/o SOB. 02/24: Afebrile overnight. Blood culture no growth to date; Urine culture grew Strep (beta) gr. G. Sinus rhythm currently. c/o 09/24 sharp chest pain radiates from mid-sternal region to right shoulder. Denies SOB. Denies fever or chills. 02/25: Transferred to PCU 2/2 chest pain yesterday. Troponin-i negative X3 (0.02). ECG no signs of acute ischemia. CXR no signs of acute intrathoracic pathologies. Symptoms resolved after Nitroglycerin, Morphine, and Ibuprofen. c/o increased urinary frequency and urgency. Denies dysuria. Denies fever or chills. Denies chest pain or palpitation. Denies fever, chills, or sweating. Constitutional Vitals: Vital Signs Temp Pulse Resp BP Pulse Ox 36.3 C 91 H 23 H 176/79 99 02/25/21 10:02 02/25/21 10:02 02/25/21 10:02 02/25/21 10:02 02/25/21 10:02 Period Temp Pulse Resp BP Sys/Conroy Pulse Ox Last 24 Hr 36.3 C-36.8 C 72-99 16-47 104-176/50-114 91-99 Intake and Output 02/24/21 02/25/21 02/25/21 21:59 05:59 13:59 Intake Total 100 50 Output Total 300 Balance 100 -300 50 Weight 63.684 kg Intake & Output: Intake & Output 02/24/21 02/25/21 02/25/21 21:59 05:59 13:59 Intake Total 100 50 Output Total 300 Balance 100 -300 50 Weight 63.684 kg Intake: IV 100 50 Zosyn 3.375 gm In Dextrose 5% 100 50 in Water 50 ml @ 100 mls/hr IV Q8H [facility] Rx#:[id number] Output: Urine/Stool Mix 300 General appearance: cooperative and no acute distress Head Head exam: Present atraumatic and normocephalic Eye Eye exam: Present EOMI and PERRL ENT ENT exam: Present mucous membranes moist, normal exam and normal external ear exam Neck Neck exam: Present normal inspection; Absent lymphadenopathy, tenderness and thyromegaly Respiratory Respiratory exam: Absent accessory muscle use, respiratory distress and wheezes Cardiovascular Cardiovascular exam: Present normal rate and rhythm; Absent JVD Additional comments: Right sided chest wall tenderness to palpation GI/Abdominal GI/Abdominal exam: Present normal bowel sounds and soft; Absent organomegaly and tenderness Extremities Exam Extremities exam: Present full ROM, normal capillary refill and normal inspection; Absent tenderness Neurological Exam Neurological exam: Present alert, CN II-XII intact and oriented X3; Absent motor sensory deficit Psychiatric Psychiatric exam: Present normal affect and normal mood; Absent anxious and depressed Skin Skin exam: Present dry and intact OBJ DATA Labs CBC & Chem 7: 02/25/21 06:07 02/25/21 05:55 Labs: Abnormal Lab Results 02/25/21 02/25/21 02/24/21 06:07 05:55 09:30 WBC RBC 3.18 L Hgb 9.7 L Hct 32.4 L MCV 101.9 H MCHC 29.9 L RDW 15.1 H Plt Count Band Neutrophils % Lymphocytes % Absolute Neutrophils APTT VBG Lactic Acid Potassium Chloride Carbon Dioxide 21 L 20 L Creatinine 1.2 H 1.2 H Glucose 113 H Calcium 8.5 L Phosphorus Total Protein 5.5 L 5.8 L Albumin 3.0 L Procalcitonin Urine Appearance Urine Protein Ur Leukocyte Esterase Urine WBC Ur Squamous Epith Cells Hyaline Casts Urine Mucus 02/24/21 02/24/21 02/24/21 09:30 09:30 05:09 WBC RBC 3.12 L Hgb 9.9 L Hct 31.2 L MCV MCHC RDW 15.5 H Plt Count 134 L Band Neutrophils % Lymphocytes % Absolute Neutrophils APTT 64.8 H VBG Lactic Acid Potassium Chloride 109 H Carbon Dioxide 20 L Creatinine 1.2 H Glucose Calcium 8.5 L Phosphorus Total Protein 5.2 L Albumin 2.8 L Procalcitonin Urine Appearance Urine Protein Ur Leukocyte Esterase Urine WBC Ur Squamous Epith Cells Hyaline Casts Urine Mucus 02/24/21 02/24/21 02/23/21 05:09 05:09 05:57 WBC RBC 2.96 L Hgb 9.3 L Hct 30.0 L MCV 101.4 H MCHC RDW 15.7 H Plt Count Band Neutrophils % Lymphocytes % Absolute Neutrophils APTT VBG Lactic Acid Potassium Chloride Carbon Dioxide Creatinine 1.4 H Glucose Calcium 8.2 L Phosphorus 2.2 L Total Protein 5.3 L Albumin 3.0 L Procalcitonin Urine Appearance Urine Protein Ur Leukocyte Esterase Urine WBC Ur Squamous Epith Cells Hyaline Casts Urine Mucus 02/23/21 02/22/21 02/22/21 05:57 16:15 10:30 WBC 13.4 H RBC 3.19 L Hgb 10.0 L Hct 31.8 L MCV MCHC RDW 15.7 H Plt Count Band Neutrophils % Lymphocytes % Absolute Neutrophils 8.88 H APTT VBG Lactic Acid Potassium Chloride Carbon Dioxide Creatinine Glucose Calcium Phosphorus Total Protein Albumin Procalcitonin 3.91 H Urine Appearance Hazy A Urine Protein 30 A Ur Leukocyte Esterase 500 A Urine WBC 81 H Ur Squamous Epith Cells 9 H Hyaline Casts 4 H Urine Mucus Few A 02/22/21 02/22/21 02/22/21 10:29 10:29 10:29 WBC 14.2 H RBC Hgb Hct MCV MCHC RDW 15.0 H Plt Count Band Neutrophils % 25 H Lymphocytes % 12 L Absolute Neutrophils APTT VBG Lactic Acid 2.7 H Potassium 2.8 L* Chloride Carbon Dioxide Creatinine 1.3 H Glucose Calcium Phosphorus Total Protein Albumin Procalcitonin Urine Appearance Urine Protein Ur Leukocyte Esterase Urine WBC Ur Squamous Epith Cells Hyaline Casts Urine Mucus Meds: Medications Acetaminophen (Acetaminophen 325 Mg Tablet) 650 mg PO Q4-6HP PRN; Protocol PRN Reason: Per Pain Protocol/Fever > 101 Hydrocodone Bitart/Acetaminophen (Hydrocodone/Apap 10/325mg Tablet) 1 tab PO Q4-6HP PRN; Protocol PRN Reason: Pain Last Admin: 02/24/21 21:14 Dose: 1 tab Documented by: Albuterol/Ipratropium (Ipratropium/Albuterol 3 Ml Ampul.Neb) 3 ml NEB Q4HP PRN PRN Reason: Shortness Of Breath Aspirin (Aspirin 81 Mg Tab.Chew) 81 mg PO DAILY [facility] Last Admin: 02/25/21 09:56 Dose: 81 mg Documented by: Atorvastatin Calcium (Atorvastatin 20 Mg Tablet) 20 mg PO HS [facility] Last Admin: 02/24/21 21:14 Dose: 20 mg Documented by: Calcitriol (Calcitriol 0.25 Mcg Capsule) 0.25 mcg PO MoWeFr@0900 [facility] Last Admin: 02/25/21 09:56 Dose: 0.25 mcg Documented by: Carvedilol (Carvedilol 12.5 Mg Tablet) 25 mg PO BIDCC [facility] Last Admin: 02/25/21 09:55 Dose: 25 mg Documented by: Docusate Sodium (Docusate Sodium 100 Mg Capsule) 100 mg PO BID [facility] Last Admin: 02/25/21 09:56 Dose: Not Given Documented by: Fluoxetine HCl (Fluoxetine Hcl 20 Mg Capsule) 20 mg PO QDAY [facility] Last Admin: 02/25/21 09:56 Dose: 20 mg Documented by: Piperacillin Sod/Tazobactam (Sod 3.375 gm/ Dextrose) 50 mls @ 100 mls/hr IV Q8H [facility]; Protocol Last Infusion: 02/25/21 06:40 Dose: Infused Documented by: Potassium Chloride 20 meq/ (Dextrose) 260 mls @ 130 mls/hr IV UD PRN PRN Reason: hypokalemia Ibuprofen (Ibuprofen 800 Mg Tablet) 800 mg PO TIDP PRN; Protocol PRN Reason: Per Pain Protocol Last Admin: 02/24/21 19:24 Dose: 800 mg Documented by: Metoclopramide HCl (Metoclopramide 10 Mg/2 Ml Vial) 10 mg IV Q6 PRN PRN Reason: Nausea Morphine Sulfate (Morphine 2 Mg/Ml Vial) 2 mg IV Q4HP PRN; Protocol PRN Reason: Per Pain Protocol Last Admin: 02/24/21 11:53 Dose: 2 mg Documented by: Nitroglycerin (Nitroglycerin 0.4 Mg Tab.Subl) 0.4 mg SL Q5M PRN PRN Reason: Chest Pain Last Admin: 02/24/21 11:45 Dose: 0.4 mg Documented by: Omeprazole (Omeprazole 20 Mg Capsule) 20 mg PO QDAY [facility] Last Admin: 02/25/21 09:56 Dose: 20 mg Documented by: Ondansetron HCl (Ondansetron 4 Mg/2 Ml Vial) 4 mg IV Q4-6HP PRN; Protocol PRN Reason: Nausea And Vomiting Prednisone (Prednisone 5 Mg Tablet) 5 mg PO DAILY [facility] Last Admin: 02/25/21 09:56 Dose: 5 mg Documented by: Rivaroxaban (Rivaroxaban 20 Mg Tablet) 20 mg PO DAILY [facility] Last Admin: 02/25/21 09:55 Dose: 20 mg Documented by: Senna (Sennosides 1 Tablet) 1 tab PO HSP PRN PRN Reason: Constipation Sodium Chloride (0.9 % Sodium Chloride 10 Ml Syringe) 10 ml IV Q8 [facility] Last Admin: 02/25/21 05:53 Dose: 10 ml Documented by: A/P Assessment and plan (1) Clinical sepsis: Status: Acute (2) Pyelonephritis: Status: Acute (3) Chronic kidney disease (CKD) stage G3b/A2, moderately decreased glomerular filtration rate (GFR) between 30-44 mL/min/1.73 square meter and albuminuria creatinine ratio between 30-299 mg/g: Status: Chronic (4) Lupus arthritis: Status: Chronic (5) CAD (coronary artery disease): Status: Acute (6) Stage 1 acute kidney injury: Status: Acute (7) Hypokalemia: Status: Acute (8) Atrial fibrillation: Status: Acute (9) Chest pain: Status: Acute Narrative A/P Narrative: Assessment and plan: 1. Pyelonephritis with clinical sepsis: Transfer to back to inpatient med surg telemetry Serial lactic acid Blood culture, no growth to date Urine culture, Strep (beta) Gr. G CBC with auto differential in the morning to trend WBC Tylenol as needed fever Zosyn (does not use cephalosporin such as Rocephin due to allergy profile) for 5-7 days total course of therapy Saline lock #2 Atrial fibrillations: Currently normal sinus rhythm [id number] score of 5, will initiate oral anticoagulation therapy with Xarelto Continue oral Coreg from home regiment Diltiazem drip is currently off 2D echocardiogram, LVEF low normal 50-55%, otherwise normal without thrombus or other structural abnormalities 3. Stage I acute kidney injury in the context of chronic kidney disease stage III: Avoid nephrotoxic agents Saline lock CMP in the morning to trend kidney functions 4. Hypokalemia: RESOLVED Likely associated with nausea vomiting secondary to pyelonephritis Zofran IV as needed nausea vomiting Reglan IV as needed nausea vomiting Potassium replacement as per protocol CMP in the morning to trend serum potassium level and will repeat replacement as needed Also check serum magnesium level and will replace if needed 5. History of lupus arthritis: No code as needed moderate pain Morphine IV as needed severe pain Continue prednisone from home regiment #6 history of CAD: Continue aspirin from home regiment Continue statin from home regiment 7. Chest pain: Troponin-i negative X3 (0.02). ECG no signs of acute ischemia. CXR no signs of acute intrathoracic pathologies. Symptoms resolved after Nitroglycerin, Morphine, and Ibuprofen. Likely MSK origin Transfer back to inpatient med surg telemetry cbc CMP Serial Troponin 0.02 0.02 0.02 CXR ECG NitroSTAT PRN chest pain Morphine IV PRN severe pain Ibuprofen PRN MSK pain GI prophylaxis: Continue oral PPI from home regiment DVT prophylaxis: Xarelto CODE STATUS: Full code Prognosis: stable Dispositions: Transfer to back to inpatient med surg telemetry Time Spent With Patient Time: Total time spent is greater than 50% in coordination of care (as documented) at patient's floor/unit and/or counseling patient: QUALITY VTE Deep Vein Thrombosis/Pulmonary Embolism Present on Admission: No
[2021-02-25] MEDS: HYDROcodone/APAP 10/325MG TABLET PO PRN ×2 (13:01→20:22)
[2021-02-25] MEDS ORDERED: ATORVASTATIN 20 MG TABLET PO SCH (21:00)
[2021-02-26] MEDS: PIPERACILLIN SODIUM/TAZOBACTAM 3.375 GM in DEXTROSE 5% IN WATER 50 ML IV SCH ×2 (05:11→14:41)
[2021-02-26] MEDS: 0.9 % SODIUM CHLORIDE 10 ML SYRINGE IV SCH ×2 (05:23→14:41)
[2021-02-26 07:42] LABS: Basophils # (Auto) 0.06 K/mcL (0.00-0.30); Basophils % (Auto) 0.6 % (0.0-2.0); Eosinophils # (Auto) 0.22 K/mcL (0.00-0.70); Eosinophils % (Auto) 2.2 % (0.0-7.0); Hematocrit 33.5 % (34.1-44.9); Hemoglobin 10.2 g/dL (11.2-15.7); Lymphocytes # (Auto) 3.64 K/mcL (1.50-4.80); Lymphocytes % (Auto) 37.1 % (15.5-49.0); Mean Cell Volume 100.6 fL (80.0-100.0); Mean Corpuscular HGB Conc 30.4 g/dL (31.0-36.0); Mean Platelet Volume 9.2 fL (7.4-10.4); Monocytes # (Auto) 0.77 K/mcL (0.10-0.90); Monocytes % (Auto) 7.8 % (1.0-12.0); Neutrophils % (Auto) 52.3 % (38.0-78.0); Platelet Count 178 K/mcL (140-440); RBC 3.33 M/mcL (3.59-5.38); Red Cell Distribution Width 14.9 % (11.5-14.5); WBC 9.8 K/mcL (4.5-11.0)
[2021-02-26] MEDS: HYDROcodone/APAP 10/325MG TABLET PO PRN (08:07)
[2021-02-26] MEDS: CARVEDILOL 12.5 MG TABLET PO SCH (08:08)
[2021-02-26 08:33] LABS: ALT/SGPT 14 U/L (<40); AST/SGOT 13 U/L (<32); Albumin/Globulin Ratio 1.1 (1.0-2.3); Alkaline Phosphatase 56 U/L (39-117); Bilirubin,Total 0.3 mg/dL (0.1-1.0); Blood Urea Nitrogen 8 mg/dL (8-23); Carbon Dioxide 22 mmol/L (22-30); Chloride 110 mmol/L (96-108); Globulin 2.7 gm/dL (2.2-3.7); Glomerular Filtration Rate 49; Glucose 84 mg/dL (70-105)
[2021-02-26] MEDS ORDERED: ASPIRIN 81 MG TAB.CHEW PO SCH (09:00)
[2021-02-26] MEDS ORDERED: FLUoxetine HCL 20 MG CAPSULE PO SCH (09:00)
[2021-02-26] MEDS ORDERED: OMEPRAZOLE 20 MG CAPSULE PO SCH (09:00)
[2021-02-26] MEDS ORDERED: RIVAROXABAN 20 MG TABLET PO SCH (09:00)
[2021-02-26] MEDS ORDERED: predniSONE 5 MG TABLET PO SCH (09:00)
[2021-02-26] MEDS: DOCUSATE SODIUM 100 MG CAPSULE PO SCH (10:43)
--- NOTE | 2021-02-26 10:53 | Discharge Summary ---
Discharge Provider Provider Patient information: Note initiated : 02/26/21 at 10:49 am Service Date, if different from initiated Date: [] Patient: Candy Martinez 75 y/o F admitted on 02/22/21 for n/v. Chief Complaint: [pyelonephritis] History of present illness: Ms. Martinez is a 75 year old F history of lupus arthritis and CAD, presenting with 3 months history of intermittent urinary symptoms including dysuria and change in urinary frequency, as well as 2-day history of nausea and vomiting. Over the past 3 months, she has intermittent urinary symptoms including dysuria and change in urinary frequency. She also have associated fever and chills over the same. Time. She also started to have nausea and vomiting since yesterday. As such, she finally decided to presented to her PCP office for further evaluations. The diagnosis of urinary tract infections was made and she was being prescribed with oral Macrobid. She presented to our ED today due to worsening of her symptoms. She is also committing of general body weakness. Vital signs significant for tachycardia with heart rate up to 160 as well as tachypnea with rate of breathing up to the 40s. Blood pressure was also low as 80s over 40s. She was also found to be in atrial fibrillation's. Labs significant for leukocytosis with WBC 14.2. Serum potassium level 2.8. Serum creatinine level 1.3 with baseline 1.1. Serum lactic acid of 2.7. Urine analysis pending. IV fluid boluses given in ED. Date of admission: 02/22/21 19:23 Discharge date: 02/26/21 Primary care physician: Joanne Gould Consults: 02/22/21 Consult to Physician [CONS] Stat Comment: Consulting Provider: Michael Gusman Reason For Exam: Physician to Consult Discharge Meds Discharge Medications Home Medications atorvastatin 20 mg PO HS 06/28/15 [History Confirmed 02/22/21 Last Taken 02/21/21] hydrocodone-acetaminophen 1 tab PO Q4-6HP PRN 06/28/15 [History Confirmed 02/22/21 Last Taken 02/21/21] fluoxetine 20 mg capsule 30 mg PO QDAY 07/17/15 [History Confirmed 02/22/21 Last Taken 02/21/21] omeprazole 20 mg capsule,delayed release 20 mg PO QDAY 09/06/18 [History Confirmed 02/22/21 Last Taken 02/21/21] furosemide 20 mg tablet 60 mg PO QDAY tab 02/08/19 [History Confirmed 02/22/21 Last Taken Unknown] potassium chloride 10 mEq tablet,extended release 20 meq PO BID tab 11/03/19 [History Confirmed 02/22/21 Last Taken 02/21/21] calcitriol 0.25 mcg PO 3XW 10/10/20 [History Confirmed 02/22/21 Last Taken 02/21/21] carvedilol 25 mg PO BID 10/10/20 [History Confirmed 02/22/21 Last Taken 02/21/21] metoclopramide HCl 10 mg PO BID PRN 10/10/20 [History Confirmed 02/23/21 Last Taken Unknown] nitrofurantoin monohyd/m-cryst 100 mg PO BID 10/10/20 [History Confirmed 02/22/21 Last Taken 02/21/21] prednisone 5 mg PO DAILY 10/10/20 [History Confirmed 02/22/21 Last Taken 02/21/21] Aspirin Childrens 81 mg PO DAILY 02/22/21 [History Confirmed 02/22/21 Last Taken 02/21/21] ibuprofen 800 mg PO TIDP PRN #30 tab 02/26/21 [Rx Last Taken Unknown] rivaroxaban [Xarelto] 20 mg PO DAILY #30 tab 02/26/21 [Rx Last Taken Unknown] COURSE Hospital Course Hospital course: 02/23: Low grade fever 37.7 this morning. Blood and urine cultures no growth to date. Diltiazem drip was off. Sinus rhythm currently. Denies dysuria. Denies pelvic pain. Denies chest pain or heart racing sensation. c/o SOB. 02/24: Afebrile overnight. Blood culture no growth to date; Urine culture grew Strep (beta) gr. G. Sinus rhythm currently. c/o 09/24 sharp chest pain radiates from mid-sternal region to right shoulder. Denies SOB. Denies fever or chills. 02/25: Transferred to PCU 2/2 chest pain yesterday. Troponin-i negative X3 (0.02). ECG no signs of acute ischemia. CXR no signs of acute intrathoracic pathologies. Symptoms resolved after Nitroglycerin, Morphine, and Ibuprofen. c/o increased urinary frequency and urgency. Denies dysuria. Denies fever or chills. Denies chest pain or palpitation. Denies fever, chills, or sweating. 02/26: Finished 5 days course of Zosyn for pyelonephritis. Reached clinical stability, been afebrile for more than 24 hours, and any leukocytosis resolved. Patient wa s to be discharged with prescriptions of Xarelto. Patient thus made to discharge patient home with home health therapy. 2 weeks PCP follow-up appointment made for the patient's. All questions were answered prior to patient being physically discharged. Discharge diagnosis: pyelonephritis Time Spent with Patient Time attestation: Total time spent providing and/or coordinating discharge services: 02/23: Low grade fever 37.7 this morning. Blood and urine cultures no growth to date. Diltiazem drip was off. Sinus rhythm currently. Denies dysuria. Denies pelvic pain. Denies chest pain or heart racing sensation. c/o SOB. 02/24: Afebrile overnight. Blood culture no growth to date; Urine culture grew Strep (beta) gr. G. Sinus rhythm currently. c/o 09/24 sharp chest pain radiates from mid-sternal region to right shoulder. Denies SOB. Denies fever or chills. 02/25: Transferred to PCU 2/2 chest pain yesterday. Troponin-i negative X3 (0.02). ECG no signs of acute ischemia. CXR no signs of acute intrathoracic pathologies. Symptoms resolved after Nitroglycerin, Morphine, and Ibuprofen. c/o increased urinary frequency and urgency. Denies dysuria. Denies fever or chills. Denies chest pain or palpitation. Denies fever, chills, or sweating. 02/26: Finished 5 days course of Zosyn for pyelonephritis. Reached clinical stability, been afebrile for more than 24 hours, and any leukocytosis resolved. Patient was to be discharged with prescriptions of Xarelto. Patient thus made to discharge patient home with home health therapy. 2 weeks PCP follow-up appointment made for the patient's. All questions were answered prior to patient being physically discharged. EXAM Constitutional Vitals: Temp Pulse Resp BP Pulse Ox 36.4 C 81 22 155/74 91 02/26/21 06:33 02/26/21 06:33 02/26/21 06:33 02/26/21 06:33 02/26/21 06:33 General appearance: cooperative and no acute distress Head Head exam: Present atraumatic and normocephalic Eye Eye exam: Present EOMI and PERRL ENT ENT exam: Present mucous membranes moist, normal exam and normal external ear exam Neck Neck exam: Present normal inspection; Absent lymphadenopathy, tenderness and thyromegaly Respiratory Respiratory exam: Absent accessory muscle use, respiratory distress and wheezes Cardiovascular Cardiovascular exam: Present normal rate and rhythm; Absent JVD GI/Abdominal GI/Abdominal exam: Present normal bowel sounds and soft; Absent organomegaly and tenderness Extremities Exam Extremities exam: Present full ROM, normal capillary refill and normal inspection; Absent tenderness Neurological Exam Neurological exam: Present alert, CN II-XII intact and oriented X3; Absent motor sensory deficit Psychiatric Psychiatric exam: Present normal affect and normal mood; Absent anxious and depressed Skin Skin exam: Present dry and intact Discharge Data Data Completed and Pending Labs on day of discharge: Labs from last 24 hours 02/26/21 02/26/21 02/26/21 05:13 05:13 05:13 WBC 9.8 RBC 3.33 L Hgb 10.2 L Hct 33.5 L MCV 100.6 H MCH 30.6 MCHC 30.4 L RDW 14.9 H Plt Count 178 MPV 9.2 Neut % (Auto) 52.3 Lymph % (Auto) 37.1 [place] % (Auto) 7.8 Eos % (Auto) 2.2 Baso % (Auto) 0.6 Lymph # (Auto) 3.64 [place] # (Auto) 0.77 Eos # (Auto) 0.22 Baso # (Auto) 0.06 Absolute Neutrophils 5.12 Sodium 147 H Potassium 3.8 Chloride 110 H Carbon Dioxide 22 Anion Gap 15.0 BUN 8 Creatinine 1.1 GFR Calculation 49 Glucose 84 Calcium 9.0 Phosphorus 3.0 Magnesium 2.0 Total Bilirubin 0.3 AST 13 ALT 14 Alkaline Phosphatase 56 Total Protein 5.7 L Albumin 3.0 L Globulin 2.7 Albumin/Globulin Ratio 1.1 Preliminary micro results at discharge 02/22/21 12:00 Blood Culture - Preliminary Blood 02/22/21 11:50 Blood Culture - Preliminary Blood Discharge Plan Patient/Caregiver Discharge Instructions Activity: increase activity as tolerated Diet: Regular Diet Prescriptions: New ibuprofen 800 mg Tablet 800 mg PO TIDP PRN (Reason: Per Pain Protocol) Qty: 30 RF: 0 Xarelto 20 mg Tablet 20 mg PO DAILY Qty: 30 RF: 0 Continued fluoxetine [Prozac] 20 mg capsule 30 mg PO QDAY RF: 0 omeprazole 20 mg capsule,delayed release(DR/EC) 20 mg PO QDAY RF: 0 furosemide 20 mg tablet 60 mg PO QDAY RF: 0 potassium chloride 10 mEq tablet extended release 20 meq PO BID RF: 0 atorvastatin 20 MG tablet 20 mg PO HS RF: 0 hydrocodone-acetaminophen 1 TAB tablet 1 tab PO Q4-6HP PRN (Reason: Pain) RF: 0 carvedilol 25 mg tablet 25 mg PO BID RF: 0 prednisone 5 mg tablet 5 mg PO DAILY RF: 0 calcitriol 0.25 mcg Capsule 0.25 mcg PO 3XW RF: 0 metoclopramide HCl 10 mg tablet 10 mg PO BID PRN (Reason: Nausea And Vomiting) RF: 0 nitrofurantoin monohyd/m-cryst 100 mg capsule 100 mg PO BID RF: 0 Aspirin Childrens 81 mg 81 mg PO DAILY RF: 0 Follow Up Plan Follow up with: Joanne Gould MD [Primary Care Provider] - Patient Disposition: Home Health Service Rehab Potential: Good I certify that the patient requires SNF services: No Overall status at discharge: patient is back to baseline Discharge Orders: Discharge Order (Routine); Ordered 02/26/21 Ordered By: Michael FOWLER VTE Deep Vein Thrombosis/Pulmonary Embolism Present on Admission: No
[2021-02-26] MEDS ORDERED: FLU VACC QS2021-22(6MOS UP)/PF 60 MCG/0.5 ML SYRINGE IM ONE (14:15)
[2021-02-27] MEDS ORDERED: CALCITRIOL 0.25 MCG CAPSULE PO SCH (09:00)
== END 2021-02-26 15:40 | disposition home health service (06) | DRG 872 ==
LOC: ED 09:28 → ICU 19:23 → MEDSUR 02-23 18:15 → ICU 02-24 09:51 → MEDSUR 02-25 15:00
PROVIDERS: ADMIT Internal Medicine; ATTEND Internal Medicine